=== PATIENT | male | born 1945 | race Caucasian/White ===

== ENCOUNTER 2019-09-29 16:15 | Emergency (ER) | payer MEDICARE, SELFPAY ==
--- NOTE | ~2019-09-29 | XR_ITS ---
EXAMINATION: XR ribs RT 2V DATE: 09/29/2019 17:03 INDICATION: Right rib pain post fall 2010 days prior TECHNIQUE: 3 views of the right ribs were obtained. COMPARISON: Chest radiograph dated 05/31/2019 FINDINGS: Mildly displaced anterior right ninth and 10th rib fractures. Linear discoid atelectasis at the right mid and lower lung zones. No pleural effusion or pneumothorax. Heart size and visualized mediastinal silhouette are normal. Pericardial calcifications. Median sternotomy wires and mediastinal surgical clips are seen, likely from prior coronary artery bypass grafting. Cholecystectomy clips in the right upper quadrant. Vascular calcification along the bilateral renal arteries. IMPRESSION: 1. Mildly displaced anterior right ninth and 10th rib fractures. 2. Discoid atelectasis in the right mid to lower lung zone likely related to splinting. No pneumothor ax or other acute cardiopulmonary disease. Reviewed, dictated and finalized at location A. [facility] [employer] [facility] IMPRESSION: 1. Mildly displaced anterior right ninth and 10th rib fractures. 2. Discoid atelectasis in the right mid to lower lung zone likely related to sp linting. No pneumothorax or other acute cardiopulmonary disease.
[2019-09-29 16:32] VITALS: BP 152/61; PULSE 61; RESP 20; TEMP 36.3; O2SAT 100
--- NOTE | 2019-09-29 16:38 | ED.FALL ---
HPI - Fall General Stated Complaint: right side injury Time Seen by Provider: 09/29/19 16:38 Source: patient and RN notes reviewed History of Present Illness HPI Narrative: Patient is a 74-year-old male who presents the urgent care with his spouse with complaints of right-sided rib pain. Patient states that approximately 10 days ago he fell over the side of a trash can. Patient states that he is unable to get comfortable at night and is having increased pain while sleeping. Patient states he is had to sleep in a recliner. Patient denies any shortness of breath but states it is slightly painful to deep breathe. No other acute complaints. No acute distress noted. Patient had a plan of care. Related Data Home Medications Medication Instructions Recorded Confirmed albuterol sulfate 90 mcg/actuation 1 inhalation INHALATION Q4H 07/25/19 07/26/19 aerosol inhaler aspirin 81 mg tablet,delayed 81 mg PO DAILY 07/25/19 07/26/19 release fluticasone fur. 100 mcg-umeclid 1 inhalation INHALATION DAILY 07/25/19 07/26/19 62.5 mcg-vilant 25 mcg inhalat.powder metoprolol succinate 50 mg 50 mg PO DAILY 07/25/19 07/26/19 tablet,extended release 24 hr temazepam 30 mg capsule 30 mg PO ONCE 07/25/19 07/26/19 amlodipine 10 mg tablet 10 mg PO DAILY 07/26/19 07/26/19 furosemide 40 mg tablet 40 mg PO QAM 07/26/19 07/26/19 olmesartan 20 mg tablet 40 mg PO DAILY tablet 07/26/19 07/26/19 Allergies Allergy/AdvReac Type Severity Reaction Status Date / Time levofloxacin Allergy Unknown unknown Verified 08/13/19 13:23 Review of Systems Review of Systems: Narrative: CONSTITUTIONAL: Denies fever, chills, or sweats. EYES: Denies visual changes, redness, or discharge. ENT: Denies rhinorrhea, congestion, sore throat, or otalgia. CARDIOVASCULAR: Denies chest pain, palpitations, or edema. RESPIRATORY: Denies cough or dyspnea. GASTROINTESTINAL: Denies abdominal pain, nausea, vomiting, or diarrhea. GENITOURINARY: Denies dysuria or hematuria. SKIN: Denies rash or itching. MUSCULOSKELETAL: Reports of right side/rib pain. Denies back pain, joint pain, or myalgia. NEUROLOGIC: Denies headache, numbness, or weakness. All other systems reviewed are negative, except as documented in HPI. [facility] Past Medical History Medical History (Updated 09/29/19 @ 17:17 by JHON Stevenson) Abnormal lung sounds Chronic cough COPD exacerbation History of ESBL Klebsiella pneumoniae infection Hx of myocardial infarction Surgical History Surgical History (Updated 07/25/19 @ 10:41 by Jinny Reynolds [facility]) Hx of CABG Family History Family History (Updated 07/24/18 @ 15:03 by DOCTOR UNKNOWN) Mother Cerebrovascular accident, Onset Age: 88 Family history of heart disease in male family member before age 55 Family history of cardiovascular disease, Onset Age: 88 Family history of arthritis, Onset Age: 88 Patient's mother is in good health, Onset Age: 87 Father Family history of heart disease in male family member before age 55 Acute myocardial infarction Patient's father is in good health, Onset Age: 73 Other Family history of allergic disorder Hypertension Social History Social History Smoking status: Current every day smoker Second hand tobacco smoke exposure: No Smoking end date: 08/22/00 Alcohol intake: current Comments At the time of my signature, I reviewed and agree with the nursing past medical, surgical, social, and family history. There is no relevant family history pertinent to the patient complaint. Exam Narrative: Exam Narrative: GENERAL: This is a well-nourished, well-developed patient, in no apparent distress. HEAD: normocephalic, atraumatic. EYES: PERRL. Sclera clear/white. Vision is grossly intact. EARS: External ears normal NOSE: External nose normal with no obvious nasal discharge THROAT: Mucous membranes moist NECK: Neck supple, non-ten
== END 2019-09-29 17:44 | disposition home or self-care (01) ==
PROVIDERS: Emergency Provider Nurse Practitioner Family; PCP Internal Medicine
DX: S22.31XA Fracture of one rib, right side, initial encounter for closed fracture (principal); W18.09XA Striking against other object with subsequent fall, initial encounter; J44.9 Chronic obstructive pulmonary disease, unspecified; I25.2 Old myocardial infarction
CPT/HCPCS: 71100; 99213; G0463

== ENCOUNTER 2019-10-22 16:54 | Outpatient (CLI) | payer MEDICARE, SELFPAY ==
[2019-10-22 17:43] LABS: Hematocrit 41.6 % (42.0-52.0); Hemoglobin 13.7 g/dL (14.0-18.0); Mean Corpuscular HGB Conc 32.9 g/dl (32-36); Mean Corpuscular Hemoglobin 31.2 pg (26-34); Mean Corpuscular Volume 94.8 fl (80-100); Mean Platelet Volume 13.1 fl (7.4-10.4); Platelet Count Result 104 k/mm3 (150-375); Red Blood Count 4.39 M/mm3 (4.6-6.20); Red Cell Distribution Width 13.7 % (11.5-14.5); White Blood Count 7.3 K/mm3 (4.5-10.0)
[2019-10-22 17:55] LABS: Blood Urea Nitrogen 23 mg/dL (9-20); Calcium 9.1 mg/dL (8.4-10.2); Carbon Dioxide 25 mmol/L (22-30); Chloride 108 mmol/L (98-107); Estimated Glomerular Filt Rate > 60; Glucose 99 mg/dL (75-110); Potassium 4.6 mmol/L (3.4-5.0); Sodium 145 mmol/L (137-145)
[2019-10-22 18:03] LABS: NT Pro B Type Natriuretic Pept 521 PG/ML (5-100)
== END 2019-10-22 16:55 | disposition home or self-care (01) ==
LOC: ANHLAB 17:03
PROVIDERS: PCP Internal Medicine
DX: I50.42 Chronic combined systolic (congestive) and diastolic (congestive) heart failure (principal)
CPT/HCPCS: 36415; 80048; 83880; 85027

== ENCOUNTER 2020-01-12 11:03 | Emergency (ER) | payer MEDICARE, SELFPAY ==
[2020-01-12 11:03] VITALS: BP 133/64; PULSE 119; RESP 20; TEMP 37.4; O2SAT 99
--- NOTE | 2020-01-12 11:42 | ED.UPPEXIN ---
HPI - Extremity Injury (Upper) General Chief Complaint: Extremity Injury, Upper Stated Complaint: bump on left elbow Time Seen by Provider: 01/12/20 11:42 Source: patient and RN notes reviewed Mode of arrival: ambulatory Limitations: no limitations History of Present Illness HPI narrative: This is a 74 years old male presented office for evaluation of left elbow swelling with drainage. Stated he has this elbow bump/knot for past 2weeks however it just started to open up about a week ago. It usually drain in the morning with yellowish to clear fluid. He has been putting Band-Aid on his wound for the last week and Neosporin antibiotic ointment at night. He called his orthopedic today who advised him to come to urgent care for further evaluation. Denies history of gout or bursitis. Denies trauma/injury. Related Data Home Medications Medication Instructions Recorded Confirmed albuterol sulfate 90 mcg/actuation 1 inhalation INHALATION Q4H 07/25/19 01/12/20 aerosol inhaler aspirin 81 mg tablet,delayed 81 mg PO DAILY 07/25/19 01/12/20 release fluticasone fur. 100 mcg-umeclid 1 inhalation INHALATION DAILY 07/25/19 01/12/20 62.5 mcg-vilant 25 mcg inhalat.powder metoprolol succinate 50 mg 50 mg PO DAILY 07/25/19 07/26/19 tablet,extended release 24 hr temazepam 30 mg capsule 30 mg PO ONCE 07/25/19 07/26/19 amlodipine 10 mg tablet 10 mg PO DAILY 07/26/19 01/12/20 furosemide 40 mg tablet 40 mg PO QAM 07/26/19 01/12/20 Plavix 09/29/19 Allergies Allergy/AdvReac Type Severity Reaction Status Date / Time levofloxacin Allergy Unknown unknown Verified 01/12/20 11:13 Review of Systems Review of Systems: Narrative: CONSTITUTIONAL: Denies fever or feeling ill CARDIOVASCULAR: Denies chest pain RESPIRATORY: Denies dyspnea GASTROINTESTINAL: Denies nausea, vomiting SKIN: Reports knot/bump on his left elbow with drainage MUSCULOSKELETAL: Reports left elbow swelling without pain/stiffness NEUROLOGIC: Denies lightheaded PMFSH Past Medical History Medical History (Updated 01/12/20 @ 12:58 by JHON Pizarro) Abnormal lung sounds Chronic cough Chronic obstructive pulmonary disease COPD exacerbation Disturbance in sleep behavior Essential hypertension History of ESBL Klebsiella pneumoniae infection Hx of myocardial infarction KAYLIN (obstructive sleep apnea) Primary insomnia Rhinitis Seasonal allergies Tobacco abuse Surgical History Surgical History Hx of CABG Family History Family History Mother Cerebrovascular accident, Onset Age: 88 Family history of heart disease in male family member before age 55 Family history of cardiovascular disease, Onset Age: 88 Family history of arthritis, Onset Age: 88 Patient's mother is in good health, Onset Age: 87 Father Family history of heart disease in male family member before age 55 Acute myocardial infarction Patient's father is in good health, Onset Age: 73 Other Family history of allergic disorder Hypertension Social History Social History Smoking status: Current every day smoker Second hand tobacco smoke exposure: No Smoking end date: 08/22/00 Alcohol intake: current Gender identity (if verbalized by the patient): Male Comments At time of signature, I agree with nursing past medical, surgical, social and family history. There is no relevant family history pertinent to the presenting complaint. Exam Narrative: Exam Narrative: GENERAL: This is a well-nourished, well-developed patient, in no apparent distress. CARDIOVASCULAR: Regular rate and rhythm without murmurs, gallops, or rubs. RESPIRATORY: Clear to auscultation. Breath sounds equal bilaterally. No wheezes, rales, or rhonchi. NEURO: awake, alert, and oriented to person, place and time. There were no obvious f
== END 2020-01-12 11:59 | disposition home or self-care (01) ==
PROVIDERS: Emergency Provider Nurse Practitioner; PCP Internal Medicine
DX: M66.0 Rupture of popliteal cyst (principal); Z79.82 Long term (current) use of aspirin; Z79.02 Long term (current) use of antithrombotics/antiplatelets; J44.9 Chronic obstructive pulmonary disease, unspecified; I10 Essential (primary) hypertension; I25.2 Old myocardial infarction; G47.33 Obstructive sleep apnea (adult) (pediatric); Z95.1 Presence of aortocoronary bypass graft; F17.200 Nicotine dependence, unspecified, uncomplicated
CPT/HCPCS: 99213; G0463

== ENCOUNTER 2020-03-04 13:45 | Emergency (ER) | payer MEDICARE, SELFPAY ==
--- NOTE | ~2020-03-04 | XR_ITS ---
XR lumbar spine 2-3V 03/04/2020 14:55 Indication: Low back pain Procedure: 7 views lumbar spine Comparison: 11/10/2016 Findings: There is chronic loss of vertebral body height at L4 and L5. There is mild loss of vertebra l body heights. Endplate at L3, likely chronic as well, although new since previous lumbar spine seri es. There is grade 1 spondylolisthesis at L5-S1 which is unchanged. There is multilevel facet hypertr ophy of the mid and lower lumbar spine. No acute fracture or traumatic malalignment. Pedicles intact. Sacral foramen are symmetric. There is extensive renal arterial calcification. There is atherosclero tic change of the aorta. Impression: 1: No acute abnormality of the lumbar spine. Reviewed, dictated and finalized at location B. Impression: 1: No acute abnormality of the lumbar spine.
[2020-03-04 14:20] VITALS: BP 100/60; PULSE 88; RESP 20; TEMP 36.6; O2SAT 100
--- NOTE | 2020-03-04 14:22 | ED.BACK ---
HPI - Back Pain/Injury General Chief Complaint: Back Pain/Injury Stated Complaint: Back pain Time Seen by Provider: 03/04/20 14:22 Source: patient and RN notes reviewed History of Present Illness HPI Narrative: Patient is a 74-year-old female who presents the urgent care with complaints of low back pain, mainly just to the right side. Patient states that he fell down a few wooden carpeted stairs approximately 3 days ago. Patient states that he fell forward giving himself a left black eye and then backwards. Patient states that he has been sleeping in recliner without much improvement. Patient states it is nearly impossible to sleep in his bed because he is unable to get up in the morning. Patient states that sitting still and walking is not terrible but getting out of a sitting or laying position is excruciating pain. Patient states that his orthopedics suggested he have x-rays and he will refer him to a back doctor . Patient denies of any loss of consciousness, blurry vision or headache since the fall. Patient has been using a heating pad to the right lower back. No other acute complaints. No acute distress noted. Patient read the plan of care. Related Data Home Medications Medication Instructions Recorded Confirmed albuterol sulfate 90 mcg/actuation 1 inhalation INHALATION Q4H 07/25/19 03/04/20 aerosol inhaler aspirin 81 mg tablet,delayed 81 mg PO DAILY 07/25/19 03/04/20 release fluticasone fur. 100 mcg-umeclid 1 inhalation INHALATION DAILY 07/25/19 03/04/20 62.5 mcg-vilant 25 mcg inhalat.powder metoprolol succinate 50 mg 50 mg PO DAILY 07/25/19 03/04/20 tablet,extended release 24 hr temazepam 30 mg capsule 30 mg PO ONCE 07/25/19 03/04/20 furosemide 40 mg tablet 40 mg PO QAM 07/26/19 03/04/20 clopidogrel 75 mg PO DAILY 03/04/20 03/04/20 Allergies Allergy/AdvReac Type Severity Reaction Status Date / Time levofloxacin Allergy Unknown unknown Verified 01/12/20 11:13 Review of Systems Review of Systems: Narrative: CONSTITUTIONAL: Denies fever, chills, or sweats. EYES: Denies visual changes, redness, or discharge. ENT: Denies rhinorrhea, congestion, sore throat, or otalgia. CARDIOVASCULAR: Denies chest pain, palpitations, or edema. RESPIRATORY: Denies cough or dyspnea. GASTROINTESTINAL: Denies abdominal pain, nausea, vomiting, or diarrhea. GENITOURINARY: Denies dysuria or hematuria. SKIN: Denies rash or itching. MUSCULOSKELETAL: Reports of low back pain, mainly to the right side NEUROLOGIC: Denies headache, numbness, or weakness. All other systems reviewed are negative, except as documented in HPI. [facility] Past Medical History Medical History (Updated 03/04/20 @ 15:18 by JHON Stevenson) Abnormal lung sounds Chronic cough Chronic obstructive pulmonary disease COPD exacerbation Disturbance in sleep behavior Essential hypertension History of ESBL Klebsiella pneumoniae infection Hx of myocardial infarction KAYLIN (obstructive sleep apnea) Primary insomnia Rhinitis Seasonal allergies Tobacco abuse Surgical History Surgical History Hx of CABG Social History Social History Smoking status: Current every day smoker Second hand tobacco smoke exposure: No Smoking end date: 08/22/00 Alcohol intake: current Gender identity (if verbalized by the patient): Male Comments At the time of my signature, I reviewed and agree with the nursing past medical, surgical, social, and family history. There is no relevant family history pertinent to the patient complaint. Exam Narrative: Exam Narrative: GENERAL: This is a well-nourished, well-developed patient, in no apparent distress. HEAD: normocephalic, atraumatic. EYES: PERRL. Sclera clear/white. Vision is grossly intact. Mild to moderate ecchymosis surrounding the left EARS: External ears normal NOSE: External nose normal with no obvious
== END 2020-03-04 15:21 | disposition home or self-care (01) ==
PROVIDERS: Emergency Provider Nurse Practitioner Family; PCP Internal Medicine
DX: S39.012A Strain of muscle, fascia and tendon of lower back, initial encounter (principal); W10.9XXA Fall (on) (from) unspecified stairs and steps, initial encounter; F17.200 Nicotine dependence, unspecified, uncomplicated; J44.9 Chronic obstructive pulmonary disease, unspecified; I10 Essential (primary) hypertension; I25.2 Old myocardial infarction; G47.33 Obstructive sleep apnea (adult) (pediatric)
CPT/HCPCS: 72100; 99213; G0463

== ENCOUNTER 2020-03-15 11:19 | Outpatient (CLI) | payer MEDICARE, SELFPAY ==
[2020-03-15 11:55] LABS: Alanine Aminotransferase 44 U/L (4-50); Albumin Level 4.7 g/dL (3.5-5.1); Alkaline Phosphatase 225 U/L (38-126); Anion Gap 21.9 mmol/L (7-16); Aspartate Amino Transferase 43 U/L (17-59); Bilirubin,Total 0.3 mg/dL (0.2-1.3); Blood Urea Nitrogen 104 mg/dL (9-20); Calcium 9.9 mg/dL (8.4-10.2); Carbon Dioxide 17 mmol/L (22-30); Chloride 110 mmol/L (98-107); Estimated Glomerular Filt Rate 11; Glucose 100 mg/dL (75-110); Potassium 5.9 mmol/L (3.4-5.0); Sodium 143 mmol/L (137-145)
== END 2020-03-15 11:20 | disposition home or self-care (01) ==
PROVIDERS: PCP Internal Medicine; Visit Provider Orthopaedic Surgery
DX: Z79.899 Other long term (current) drug therapy (principal); M70.22 Olecranon bursitis, left elbow
CPT/HCPCS: 36415; 80053

== ENCOUNTER 2020-03-19 10:12 | Inpatient (IN) | payer MEDICARE, SELFPAY ==
[2020-03-19] VITALS (36 sets, daily range): BP systolic 92–135; BP diastolic 42–89; PULSE 53–77; RESP 12–26; TEMP 36.1–36.5; O2SAT 95–100; BMI 22.3
--- NOTE | ~2020-03-19 | MR_ITS ---
EXAMINATION: MR lumbar spine wo con DATE: 03/20/2020 11:40 INDICATION: Intractable low back pain. TECHNIQUE: Magnetic resonance imaging (MRI) of the lumbar spine was performed without intravenous con trast. Sequences included sagittal T2-weighted FSE, sagittal T2-weighted FS FSE, sagittal T1-weighted FSE, and axial T2-weighted FSE. COMPARISON: Lumbar spine MRI 11/25/2016, lumbar spine radiograph 03/04/2020, CT abdomen and pelvis 2019 FINDINGS: There are chronic bilateral L5 pars defects. There is 3 mm retrolisthesis of L4 on L5 and 5 mm anterolisthesis of L5 on S1. There is a burst fracture of L1 with 2/5 loss of height, low signal fracture lines, and bone marrow edema without retropulsion of bone into central spinal canal. There i s moderately decreased disc height at L1-L2, mildly decreased disc height at L4-L5, and severely decr eased disc height at L5-S1. The distal spinal cord signal intensity is normal. The conus medullaris i s at L1. The following disc levels are specifically discussed: L1-L2: The disc is bulging. There is mild bilateral facet joint osteoarthritis. There is mild bilater al neural foraminal stenosis. There is mild central canal stenosis. L2-L3: The disc is bulging. There is mild bilateral facet joint osteoarthritis. There is mild bilater al neural foraminal stenosis. There is no central canal stenosis. L3-L4: The disc is bulging. There is mild bilateral facet joint osteoarthritis. There is moderate rig ht and mild left neural foraminal stenosis. There is mild central canal stenosis. L4-L5: The disc is bulging. There is moderate bilateral facet joint osteoarthritis. There is moderate bilateral neural foraminal stenosis. There is mild central canal stenosis. L5-S1: The disc does not extend beyond the endplate margin. There is severe bilateral facet joint ost eoarthritis. There is mild bilateral neural foraminal stenosis. There is no central canal stenosis. IMPRESSION: 1. Acute/subacute L1 burst fracture. 2. 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 3. Severe lumbar spondylosis. Reviewed, dictated and finalized at location A.
--- NOTE | ~2020-03-19 | CT_ITS ---
EXAMINATION: CT abd pelvis lumbar wo con DATE: 03/19/2020 11:57 INDICATION: Back pain, abnormal labs, history of kidney stones TECHNIQUE: Computed tomography (CT) of the abdomen, pelvis, and lumbar spine was performed without in travenous contrast. The dose-length product (DLP) was 482.64 mGy-cm. Automated exposure control and i terative reconstruction technique were employed. COMPARISON: 02/06/2018 FINDINGS: Abdomen/pelvis: A stable 4 mm nodule of the left lower lobe is consistent with old granulomatous dise ase. The heart size is normal. There is calcification of the pericardium. The gallbladder is surgical ly absent. The liver, spleen, pancreas, and left adrenal gland are normal. There is a stable 2.5 cm r ight adrenal mass, consistent with an adenoma. Punctate stones of the kidneys measure up to 2 mm. The re are no stones in the ureters or bladder. There is no hydronephrosis or hydroureter. The bladder is decompressed by White catheter. There is significant calcified atherosclerosis of the aorta and many of the other arteries. No pathologically enlarged abdominal or pelvic lymph nodes are identified. Th ere is no free intraperitoneal gas or evidence of bowel obstruction. Colonic diverticulosis is presen t without evidence of diverticulitis. Healing right-sided rib fractures are noted. Lumbar spine: There are bilateral L5 pars defects with chronic grade 1 anterolisthesis of L5 on S1 an d severe loss of L5-S1 intervertebral disc space height. There is a compression fracture of L1 with 3 0% loss of anterior vertebral body height which is new since the prior examination. Schmorl node is a gain noted in the L2 vertebral body. There is mild loss of intervertebral disc space height at L1-2. Mild lower lumbar facet osteoarthritis is noted. IMPRESSION: 1. Age-indeterminate L1 compression fracture, new since the comparison examination, otherwise unchang ed severe lumbar spondylosis at L5-S1. 2. No acute findings of the abdomen or pelvis. 3. Bilateral nephrolithiasis. Reviewed, dictated and finalized at location B. IMPRESSION: 1. Age-indeterminate L1 compression fracture, new since the comparison examinat ion, otherwise unchanged severe lumbar spondylosis at L5-S1. 2. No acute findings of the abdomen or pelvis. 3. Bilateral nephrolithiasis.
--- NOTE | ~2020-03-19 | US_ITS ---
EXAMINATION: US renal BI EXAM DATE: 03/20/2020 12:04 INDICATION: Acute kidney injury. TECHNIQUE: Multiple grayscale and Doppler images of the kidneys were obtained (by a technologist who performed the scan) and subsequently reviewed. There is no prior study for comparison. FINDINGS: Right kidney: There is normal contour and echogenicity. It measures 9.1 x 5.0 x 5.4 centimeters. Th ere are no focal renal lesions identified. There is no hydronephrosis. Left kidney: There is normal contour and echogenicity. It measures 10.3 x 5.9 x 5.0 centimeters. Th ere are no focal renal lesions identified. There is no hydronephrosis. White catheter within collapsed bladder. IMPRESSION: 1. Sonographically unremarkable kidneys. Reviewed, dictated and finalized at location A.
--- NOTE | 2020-03-19 10:26 | ECG_ITS ---
Measurements Intervals [place] Rate: 55 P: VA: 0 QRS: -16 QRSD: 92 T: 28 QT: 413 QTc: 398 Interpretive Statements SINUS OR ECTOPIC ATRIAL BRADYCARDIA WITH SINUS ARRHYTHMIA BORDERLINE ST ABNORMALITY- DIFFUSE LEADS BORDERLINE ECG Electronically Signed On 03-19-2020 10:29:12 CDT by Yuval Mcbride D.O.
[2020-03-19 10:46] LABS: Basophils Absolute Auto 0.1 K/mm3 (0.0-0.1); Basophils Percent Auto 0.6 % (0.2-1.2); Eosinophils Absolute Auto 0.3 K/mm3 (0-0.3); Eosinophils Percent Auto 2.8 % (0-4.4); Hematocrit 39.1 % (42.0-52.0); Immature Granulocyte Absolute 0.03 K/mm3 (0.00-0.031); Immature Granulocyte Percent A 0.3 % (0-0.5); Lymphocytes Absolute Auto 1.65 K/mm3 (0.9-3.2); Lymphocytes Percent Auto 18.3 % (18.3-44.2); Mean Corpuscular HGB Conc 33.2 g/dl (32-36); Mean Corpuscular Hemoglobin 31.6 pg (26-34); Mean Corpuscular Volume 95.1 fl (80-100); Monocytes Absolute Auto 0.7 K/mm3 (0.1-0.6); Monocytes Percent Auto 8.2 % (2.6-8.5); Neutrophils Absolute Auto 6.3 K/mm3 (1.3-6.7); Neutrophils Percent Auto 69.8 % (45.5-73.1); Platelet Count Result 160 k/mm3 (150-375); Red Blood Count 4.11 M/mm3 (4.6-6.20); Red Cell Distribution Width 12.5 % (11.5-14.5)
[2020-03-19] MEDS: SODIUM CHLORIDE 0.9% IV 1,000 ML 999 ML IV CONT (10:59)
[2020-03-19 11:03] LABS: Anion Gap 17.4 mmol/L (7-16); Blood Urea Nitrogen 110 mg/dL (9-20); Calcium 9.9 mg/dL (8.4-10.2); Carbon Dioxide 17 mmol/L (22-30); Chloride 111 mmol/L (98-107); Estimated CRCL calculation 10 ml/min; Estimated Glomerular Filt Rate 10; Glucose 103 mg/dL (75-110); Potassium 6.4 mmol/L (3.4-5.0); Sodium 139 mmol/L (137-145)
[2020-03-19 11:40] LABS: Add Urine Microscopic? NO; Appearance Urine Clear (Clear); Bilirubin Urine Negative (Negative); Blood Urine Negative (Negative); Color Urine Yellow (Yellow); Glucose Urine UA Negative (Negative); Ketones Urine Negative (Negative); Leukocyte Esterase Ur Negative LEU/UL (Negative); Nitrate Urine Negative (Negative); Protein Urine Negative (Negative); Specific Grav Ur 1.019 (1.001-1.035); Urobilinogen Urine Negative mg/dL (<2.0)
[2020-03-19] MEDS: INSULIN HUMAN REGULAR (*BKC) 100 UNITS/ML 10 UNITS IV PUSH ×2 (11:40→21:22)
[2020-03-19] MEDS: DEXTROSE 50% 25 GM/50 ML SYRINGE IV PUSH ×2 (11:40→21:24)
[2020-03-19] MEDS: CALCIUM GLUCONATE 1,000 MG/10 ML VIAL 1000 MG IV PUSH (11:41)
[2020-03-19] MEDS: SODIUM POLYSTYRENE SULFONONATE 15 GM/60 ML BTL 30 GM PO (11:41)
--- NOTE | 2020-03-19 12:13 | ED.RECABL ---
HPI - Recheck/Abnormal Lab/Rx General Chief Complaint: Recheck/Abnormal Lab/Rx <Mendy Garcia PA-C - Last Filed: 03/19/20 13:56> Stated Complaint: abd lab work <Mendy Garcia PA-C - Last Filed: 03/19/20 13:56> Time Seen by Provider: 03/19/20 10:40 <Mendy Garcia PA-C - Last Filed: 03/19/20 13:56> Source: patient <Mendy Garcia PA-C - Last Filed: 03/19/20 13:56> Mode of arrival: ambulatory <CASS Talamantes Last Filed: 03/19/20 13:56> Limitations: no limitations <Mendy Garcia PA-C - Last Filed: 03/19/20 13:56> History of Present Illness HPI narrative: This is a 75 year old male that presents to the ER for abnormal labs. Reports he had labs done by his orthopedic doctor. Reports he was told he should come to the ER because his kidney numbers were not good. Patient reports some nausea. Also reports low back pain. Reports he had a fall a month ago and since he has been having low back pain. Does report history of kidney stones. Denies fever, abdominal pain, vomiting, dysuria, hematuria. <Mendy Garcia PA-C - Last Filed: 03/19/20 13:56> Related Data Home Medications: Home Medications Medication Instructions Recorded Confirmed albuterol sulfate 90 mcg/actuation 1 inhalation INHALATION Q4H 07/25/19 03/04/20 aerosol inhaler aspirin 81 mg tablet,delayed 81 mg PO DAILY 07/25/19 03/04/20 release fluticasone fur. 100 mcg-umeclid 1 inhalation INHALATION DAILY 07/25/19 03/04/20 62.5 mcg-vilant 25 mcg inhalat.powder metoprolol succinate 50 mg 50 mg PO DAILY 07/25/19 03/04/20 tablet,extended release 24 hr temazepam 30 mg capsule 30 mg PO ONCE 07/25/19 03/04/20 clopidogrel 75 mg PO DAILY 03/04/20 03/04/20 <CASS Talamantes Last Filed: 03/19/20 13:56> Allergies/Adverse Reactions: Allergies Allergy/AdvReac Type Severity Reaction Status Date / Time levofloxacin Allergy Unknown unknown Verified 01/12/20 11:13 <Mendy Garcia PA-C - Last Filed: 03/19/20 13:56> Review of Systems Review of Systems: Narrative: CONSTITUTIONAL: Denies fever GASTROINTESTINAL: Reports nausea. Denies abdominal pain, vomiting GENITOURINARY: Denies dysuria or hematuria. MUSCULOSKELETAL: Reports back pain, joint pain, and myalgia. NEUROLOGIC: Denies numbness <CASS Talamantes Last Filed: 03/19/20 13:56> All systems reviewed & are unremarkable except as noted in HPI and below <Mendy Garcia PA-C - Last Filed: 03/19/20 13:56> [facility] Past Medical History Medical History: Medical History (Updated 03/19/20 @ 12:53 by Francesca Huertas MD) Abnormal lung sounds Chronic cough Chronic obstructive pulmonary disease COPD exacerbation Disturbance in sleep behavior Essential hypertension History of ESBL Klebsiella pneumoniae infection Hx of myocardial infarction KAYLIN (obstructive sleep apnea) Primary insomnia Rhinitis Seasonal allergies Tobacco abuse <CASS Talamantes Last Filed: 03/19/20 13:56> Surgical History Surgical History: Surgical History Hx of CABG <Mendy Garcia PA-C - Last Filed: 03/19/20 13:56> Social History Social History: Social History Smoking status: Current every day smoker Second hand tobacco smoke exposure: No Smoking end date: 08/22/00 Alcohol intake: current Gender identity (if verbalized by the patient): Male <CASS Talamantes Last Filed: 03/19/20 13:56> Exam Narrative: Exam Narrative: GENERAL: Elderly, well-nourished, and in no acute distress. HEAD: Normocephalic, atraumatic. EYES: EOMI. CHEST: Clear to auscultation. No respiratory distress. No wheezes rales or rhonchi HEART: Regular rate and rhythm. No murmur heard. Normal peripheral pulses. ABDOMEN: Soft, nontender, nondistended, normal active bowel sounds. EXTREMITIES: Normal range of motion. No edema. Stre
--- NOTE | 2020-03-19 15:07 | ADMGEN ---
This patient, Atul Fernando, was admitted to IMU Room 205-01 at 1424 on 03/19/2020. Patient/family oriented to hospital policies and general routines including ID bracelet, bed and alarms, visiting hours, pain management, procedures, bathroom and other care routines, personal items, smoking policy, room service/diet, and visiting hours. Valuables list has been completed. Information on how to activate the Rapid Response Team has been discussed. Patient/Family are encouraged to report perceived risks to care and to ask questions if they do not understand what they are told or what they should do.
--- NOTE | 2020-03-19 16:20 | PM.CNOR ---
Assessment and Plan Additional Plan Patient is a 75-year-old male well known to me. We saw him in the office today in follow-up of his left olecranon bursal sinus. We had seen him the week before and placed him on Bactrim DS 1 p.o. b.i.d.. He advised me that he had not had lab work for very long time and I recommended obtaining a CMP make sure he did not have significant renal insufficiency or hepatic insufficiency. He did not have the test drawn until Tuesday and he called the office yesterday and we selected results up and at that time his creatinine was 5.0 and potassium was 5.9 his BUN I believe was 110. I spoke with Dr. mena call a his primary care physician to advise me that the last time he had a creatinine it was 1. So patient has acute renal failure of uncertain etiology. He had been on Bactrim for 3 days when he had the CMP test done. I sent him to the emergency room for urgent evaluation expecting that is potassium might be dangerously elevated by now. It was found to be markedly elevated at 6.4 and his creatinine was further elevated at 5.9. He is admitted for observation on the intermediate care unit and was given Kayexalate to lower his potassium. His left olecranon bursa looks quite benign now except he does have a 3 mm sinus through the skin. There is no drainage no erythema. We are hoping that this will heal on its own by secondary intention if he is able to stop bleeding on his elbow and he forgets frequently when he is rolling in bed and does lean on a period His chief complaint today when he saw me was intractable lower back pain. He saw Dr. evans Steele in the central communications specialist a week ago was complaining of low back pain that radiated to the right flank. Now his pain is mostly central. It started approximately 4 weeks ago when he fell on his back. His a long history of chronic lower back pain but it has been much worse since his fall. He had x-rays [address] solis which showed degenerative changes and no evidence of fracture. He had x-rays today the in the emergency room which showed no definite acute abnormality and a CT scan was ordered which showed significant central right endplate compression of L1 with some signs of sclerosis and it is unclear whether this is acute or chronic. It is new compared with last imaging study in 2018 though. 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 When he saw Dr. evans Steele and Dr. solis recommended obtaining an MRI scan of his lumbar spine which has been scheduled for Tuesday here at the hospital. I will see if we can get this sooner. Patient complains to me today that he has had bowel incontinence for the last few years which is getting worse. When he eats something he has uncontrollable bowel movements. The etiology of this is unclear but chronic cauda equina syndrome should be considered. Patient has significant comorbidities. He has a 50 pack-year smoking history continues to smoke has had heart attack has severe COPD. We will obtain MRI scan of his lumbar spine and make recommendations accordingly. His acute renal failure is being managed by Dr. Katz and hospitalist. I will order SCDs while he is here hospitalized. History of Present Illness HPI Consult date: 03/19/20 Chief complaint: Acute kidney failure/[id number] fx/hyperkalemia PMFSH Past Medical History Medical History (Updated 03/19/20 @ 12:53 by Francesca Huertas MD) Abnormal lung sounds Chronic cough Chronic obstructive pulmonary disease COPD exacerbation Disturbance in sleep behavior Essential hypertension History of ESBL Klebsiella pneumoniae infection Hx of myocardial infarction KAYLIN (obstructive sleep apnea) Primary insomnia Rhinitis Seasonal allergies Tobacco abuse Surgical History Surgical History (Reviewed
[2020-03-19 17:39] LABS: Alanine Aminotransferase 37 U/L (4-50); Albumin Level 4.9 g/dL (3.5-5.1); Alkaline Phosphatase 175 U/L (38-126); Anion Gap 20.9 mmol/L (7-16); Aspartate Amino Transferase 43 U/L (17-59); Bilirubin,Total 0.3 mg/dL (0.2-1.3); Blood Urea Nitrogen 104 mg/dL (9-20); Calcium 10.4 mg/dL (8.4-10.2); Carbon Dioxide 14 mmol/L (22-30); Chloride 113 mmol/L (98-107); Estimated CRCL calculation 10 ml/min; Estimated Glomerular Filt Rate 10; Glucose 115 mg/dL (75-110); Magnesium 2.2 mg/dL (1.6-2.3); Phosphorus 7.7 mg/dL (2.5-4.5); Potassium 5.9 mmol/L (3.4-5.0); Sodium 142 mmol/L (137-145)
[2020-03-19 17:42] LABS: Creatine Kinase 36 U/L (55-170)
[2020-03-19 17:53] LABS: Complement C3 113 mg/dL (88-165)
--- NOTE | 2020-03-19 18:00 | PM.IMHP ---
H&P: HPI History of Present Illness Chief complaint: Abnormal labs. Narrative: Atul Fernando is a very pleasant 75-year-old male with history of coronary artery disease status post CABG, hypertension, dyslipidemia, iron deficiency anemia, COPD, and peripheral arterial disease who presented to the emergency department earlier today for evaluation of abnormal labs. Several weeks ago he was seen at urgent care for evaluation of low back pain after he fell down a couple of steps several days prior. He had been using a heating pad without a whole lot of benefit, and was prescribed hydrocodone which helped somewhat. A lumbar x-ray done at that time showed no acute abnormalities. Since that time, he has not been doing much, as any movement causes a big spasm in the mid lumbar region and he has been progressively more weak since that time. More recently, he was seen by Dr. Akhil Webber for follow-up of left olecranon bursitis and he was started on Bactrim DS b.i.d due to reports of purulent drainage at one point. Dr. Webber also ordered a CMP as the patient had not had lab work done in some time, and he had that lab drawn this past Tuesday, about 3 days after he started taking the Bactrim. Unfortunately, he has continued to become more weak, lightheaded, and dizzy and he has noticed that his blood pressures have been running around 100/60, when they typically run 130/70. In fact, he spoke with his signal system testing maintainer yesterday regarding the low blood pressures and feelings of weakness, and he was instructed to hold his diuretic and antihypertensives. Today was told to come to the emergency department as his lab work done on Tuesday showed acute kidney failure with a creatinine of 5.0. On arrival to the emergency department his creatinine was 5.9 and potassium was 6.40 for which he was given the appropriate cocktail for hyperkalemia, including Kayexalate. Unfortunately, he has had many loose stools since taking the Kayexalate and he goes on to say that he has had chronic diarrhea for many years couple of weeks and the Kayexalate made that much worse. Since receiving IV fluids he reports feeling much better but goes on to say he typically has no back pain if he is just lying flat. He denies radiation of the back pain and gives no history to suggest sciatica. He denies paresthesias, focal weakness, and saddle anesthesia. He has chronic loose stools, as mentioned above, and is at times incontinent of those stools but that is not a new finding, however he reports having a bowel movement within 15 to 30 minutes of eating or drinking almost anything. He has had nausea and his appetite has not been good for. He has never been diagnosed with BPH but he reports nocturia, getting up at least 3 times a night to go to the bathroom, as well as hesitancy and decreased stream. These are not new symptoms either. At the time my evaluation he does not have any significant complaints. He denies fever, chills, and sweats. No recent cold or flu symptoms. He denies chest pain, shortness of breath, vomiting, dysuria, and any significant change in urine output. He also denies NSAID use and the addition of any other medications to his regimen except for the Bactrim. Review of Systems Review of Systems: Narrative: 12 systems were reviewed with pertinent positives and negatives as per HPI. No fever, chills, or sweats. He denies recent travel and sick contacts. No change in mild, chronic cough. or shortness of breath. He has pretty terrible claudication in the right leg when walking, but apparently is not a surgical candidate or he does not want to have vascular intervention. he has not noticed confusion but has had slow thought processes. Except as documented, all other systems were reviewed and are negative. [facility] Past Medical History Medical History (Updated 03/20/20 @ 00:44 by Helen Reagan PA-C) Anemia Benign colon polyp Chronic obstructive pulmonary disease Coronary artery di
[2020-03-19] MEDS: SODIUM CHLORIDE 0.9% IV 1,000 ML 100 ML IV CONT (18:33)
[2020-03-19 20:48] LABS: Creatinine Urine 115.6 mg/dL
[2020-03-19 20:49] LABS: Sodium Urine Random 57 meq/L
--- NOTE | 2020-03-19 21:00 | PCRCNOTE ---
20:45 WENT AND SEEN PT HE STATED HE DOESN'T WEAR A CPAP MACHINE AT HOME. ONLY WHEN HE HAS COME TO THE HOSPITAL AT TIMES.
[2020-03-19 21:06] LABS: Glucose Point of Care 101 (65-105)
[2020-03-19] MEDS: SODIUM BICARBONATE 8.4% 100 MEQ in WATER, STERILE FOR INJECTION 1,000 ML IV CONT (21:21)
[2020-03-19] MEDS: CALCIUM GLUC 1,000 MG/NS 50 ML 1,000 MG/50 ML BAG 100 MG IVPB (21:22)
[2020-03-19 22:51] LABS: Glucose Point of Care 222 (65-105)
[2020-03-20] VITALS (12 sets, daily range): BP systolic 91–121; BP diastolic 49–68; PULSE 67–99; RESP 16–20; TEMP 36.1–37.5; O2SAT 97–99; BMI 22.4
[2020-03-20 00:06] LABS: Glucose Point of Care 82 (65-105)
[2020-03-20 00:12] LABS: Anion Gap 16.4 mmol/L (7-16); Blood Urea Nitrogen 99 mg/dL (9-20); Calcium 9.7 mg/dL (8.4-10.2); Carbon Dioxide 15 mmol/L (22-30); Chloride 115 mmol/L (98-107); Estimated CRCL calculation 13 ml/min; Estimated Glomerular Filt Rate 13; Glucose 72 mg/dL (75-110); Potassium 5.4 mmol/L (3.4-5.0); Sodium 141 mmol/L (137-145)
[2020-03-20 00:36] LABS: Glucose Point of Care 91 (65-105)
[2020-03-20 01:32] LABS: Glucose Point of Care 79 (65-105)
[2020-03-20 01:50] LABS: Glucose Point of Care 105 (65-105)
[2020-03-20] MEDS: TEMAZEPAM 15 MG CAPSULE 30 MG PO ×2 (01:51→22:49)
[2020-03-20] MEDS: ALBUTEROL SULFATE (*SP) AEROSOL 1 PUFF INHALATION ×4 (03:27→16:03)
[2020-03-20 03:49] LABS: Glucose Point of Care 138 (65-105)
[2020-03-20 04:59] LABS: Hematocrit 33.5 % (42.0-52.0); Hemoglobin 11.1 g/dL (14.0-18.0); Mean Corpuscular HGB Conc 33.1 g/dl (32-36); Mean Corpuscular Volume 93.6 fl (80-100); Mean Platelet Volume 12.6 fl (7.4-10.4); Platelet Count Result 126 k/mm3 (150-375); Red Blood Count 3.58 M/mm3 (4.6-6.20); Red Cell Distribution Width 12.1 % (11.5-14.5); White Blood Count 7.8 K/mm3 (4.5-10.0)
[2020-03-20 07:35] LABS: Anion Gap 17.2 mmol/L (7-16); Blood Urea Nitrogen 88 mg/dL (9-20); Calcium 9.8 mg/dL (8.4-10.2); Carbon Dioxide 16 mmol/L (22-30); Chloride 112 mmol/L (98-107); Estimated CRCL calculation 16 ml/min; Estimated Glomerular Filt Rate 16; Glucose 91 mg/dL (75-110); Magnesium 1.9 mg/dL (1.6-2.3); Potassium 5.2 mmol/L (3.4-5.0); Sodium 140 mmol/L (137-145)
--- NOTE | 2020-03-20 07:43 | PM.PNORT ---
Progress Note: A&P Additional Plan Pt is scheduled to get MRI of L-spine, Cr-3.8 this am, pt having no new symptoms- still having back pain, NVI to both LE, elbow still looks benign, will reveiw MRI when done Subjective Subjective Date/Time Seen: 03/20/20 07:43 Objective Data Vital Signs Vital Signs: Vital Signs - 24 hr 03/19/20 10:27 03/19/20 10:48 03/19/20 10:49 Temperature 36.5 C Pulse Rate 64 61 Respiratory Rate 12 12 Blood Pressure 135/75 94/65 L Pulse Oximetry 100 99 99 03/19/20 10:53 03/19/20 11:05 03/19/20 11:15 Temperature Pulse Rate 53 L 59 L 59 L Respiratory Rate 16 19 13 Blood Pressure Pulse Oximetry 99 100 03/19/20 11:16 03/19/20 11:30 03/19/20 11:32 Temperature Pulse Rate 54 L 54 L 56 L Respiratory Rate 16 18 20 Blood Pressure 98/78 L Pulse Oximetry 100 97 100 03/19/20 11:45 03/19/20 11:46 03/19/20 12:02 Temperature Pulse Rate 55 L 57 L 69 Respiratory Rate 17 16 16 Blood Pressure Pulse Oximetry 100 100 100 03/19/20 12:15 03/19/20 12:47 03/19/20 12:48 Temperature Pulse Rate 66 55 L 55 L Respiratory Rate 15 15 14 Blood Pressure 106/61 Pulse Oximetry 99 98 98 03/19/20 13:00 03/19/20 13:01 03/19/20 13:15 Temperature Pulse Rate 59 L 60 67 Respiratory Rate 16 19 18 Blood Pressure 114/89 Pulse Oximetry 100 99 97 03/19/20 13:16 03/19/20 13:30 03/19/20 13:31 Temperature Pulse Rate 66 69 71 Respiratory Rate 18 16 17 Blood Pressure 95/42 L Pulse Oximetry 96 95 96 03/19/20 13:45 03/19/20 13:46 03/19/20 14:00 Temperature Pulse Rate 66 67 61 Respiratory Rate 16 16 16 Blood Pressure 93/53 L Pulse Oximetry 97 99 03/19/20 14:01 03/19/20 14:15 03/19/20 14:16 Temperature Pulse Rate 61 59 L 73 Respiratory Rate 15 12 20 Blood Pressure 92/50 L 96/51 L Pulse Oximetry 03/19/20 14:17 03/19/20 14:30 03/19/20 14:31 Temperature Pulse Rate 69 63 70 Respiratory Rate 26 H 16 16 Blood Pressure 114/68 Pulse Oximetry 03/19/20 16:00 03/19/20 18:00 03/19/20 18:45 Temperature 36.2 C L 36.2 C L Pulse Rate 70 61 58 L Respiratory Rate 24 H 22 H Blood Pressure 110/63 100/52 L Pulse Oximetry 100 99 03/19/20 20:00 03/19/20 21:54 03/19/20 23:43 Temperature 36.1 C L Pulse Rate 62 71 64 Respiratory Rate 20 Blood Pressure 107/48 L Pulse Oximetry 97 03/20/20 01:56 03/20/20 03:28 03/20/20 04:00 Temperature 36.1 C L Pulse Rate 85 71 73 Respiratory Rate 18 20 Blood Pressure 103/59 L Pulse Oximetry 97 03/20/20 06:00 Temperature Pulse Rate 67 Respiratory Rate Blood Pressure Pulse Oximetry Intake/Output Intake/Output: Intake & Output 03/17/20 03/18/20 03/19/20 03/20/20 23:59 23:59 23:59 23:59 Intake Total 1290 900 Output Total 325 700 Balance 965 200 Meds/Results Medications: Active Medications Generic Name Dose Route Start Last Admin Trade Name Freq PRN Reason Stop Dose Admin Acetaminophen 650 mg 03/20/20 00:49 Tylenol Tablet PO Q6H PRN Mild Pain (1-3) or Fever Hydrocodone Bitart/Acetaminophen 1 tab 03/19/20 13:29 03/20/20 02:14 Vernon 5-325 Mg PO 1 tab Q4H PRN Administration Pain Rated 4-6 Hydrocodone Bitart/Acetaminophen 1 tab 03/20/20 00:49 [place] 5-325 Mg PO Q6H PRN Pain Rated 4-6 Albuterol 1 puff 03/20/20 04:00 03/20/20 03:27 Proventil Hfa INHALATION 1 puff Q4HRT RADHA Administration Aspirin 81 mg 03/20/20 09:00 Aspirin Ec PO DAILY RADHA Atorvastatin Calcium 80 mg 03/20/20 09:00 Lipitor PO DAILY [facility] Dextrose 12.5 gm 03/19/20 20:40 Dextrose 50% Syringe IV PUSH PRN PRN Hypoglycemia Protocol Ferrous Sulfate 324 mg 03/20/20 09:00 Ferrous Sulfate PO DAILY RADHA Glucagon 1 mg 03/19/20 20:40 Glucagon For Inj IM PRN PRN Hypoglycemia Protocol Glucose 15 gm 03/19/20 20:40 Glutose 15 PO PRN PRN Hypo
[2020-03-20 08:09] LABS: Glucose Point of Care 108 (65-105)
[2020-03-20] MEDS: SODIUM BICARBONATE 8.4% 100 MEQ in WATER, STERILE FOR INJECTION 1,000 ML IV CONT ×2 (08:25→22:40)
[2020-03-20] MEDS: SERTRALINE HCL 50 MG TABLET 100 MG PO (08:29)
[2020-03-20] MEDS: ATORVASTATIN 40 MG TABLET 80 MG PO (08:29)
[2020-03-20] MEDS: ASPIRIN 81 MG ENTERIC TABLET PO (08:30)
[2020-03-20] MEDS: FERROUS SULFATE 324 MG TABLET PO (08:30)
--- NOTE | 2020-03-20 12:44 | PM.CNNEP ---
Assessment and Plan Assessment and plan (1) Acute kidney injury: Code(s): N17.9 - Acute kidney failure, unspecified Status: Acute Assessment and Plan: The patient has acute kidney injury. His baseline creatinine is normal at 1.0. The acute kidney injury could be from several issues. Dehydration is certainly playing a role. He has had the diarrhea and poor appetite for the last few weeks. In addition is blood pressure was low suggestive of dehydration as well. The patient was on Bactrim for 3 weeks. Bactrim can exaggerated the rise in the creatinine and also can cause his potassium to be high. all this should improve off the medication in with fluids. In addition, Bactrim can cause interstitial nephritis. So we can check some urine eosinophils. However he does not have a rash or peripheral eosinophilia. He has an infection is elbow but he does not look toxic so I do not think this is contributing to his kidney issues. He has had a history of kidney stones so we should get an ultrasound to be sure he is okay. (2) Hyperkalemia: Code(s): E87.5 - Hyperkalemia Status: Acute Assessment and Plan: The potassium is high due to his dehydration. Bactrim may have contributed a little bit. (3) Metabolic acidosis: Code(s): E87.2 - Acidosis Status: Acute Assessment and Plan: The patient has a normal anion gap metabolic acidosis. This is likely related to his diarrhea and to the renal failure with decreased ammonia production. Hyperkalemia also reduces ammonia production. (4) Essential hypertension: Code(s): I10 - Essential (primary) hypertension Status: Acute Assessment and Plan: His blood Pressure is well controlled. (5) Anemia: Code(s): D64.9 - Anemia, unspecified Status: Acute Assessment and Plan: The patient's hemoglobin is mildly low. This may be due to infection or could be other issues. His renal failure certainly is contributory currently but should be contributory to his former history of more mild anemia. (6) Tobacco abuse: Code(s): Z72.0 - Tobacco use Status: Acute Assessment and Plan: He is encouraged to stop smoking. (7) Kidney stones: Code(s): N20.0 - Calculus of kidney Status: Acute Assessment and Plan: No history for couple of years. History of Present Illness Reason for Consult Consult date: 03/20/20 Chief Complaint Chief complaint: Abnormal labs. History of Present Illness Narrative: Atul is a very pleasant 75-year-old gentleman who has multiple medical problems including kidney stones, sleep apnea, lower extremity peripheral artery disease, he still smokes, hyperlipidemia, hypertension, irritable bowel syndrome, pulmonary nodules, diverticulosis, coronary artery disease, COPD. The patient has chronic diarrhea. This is been going on for at least a year or 2. He has seen Dr. lerner about this and was diagnosed with irritable bowel syndrome apparently. He says that he frequently has diarrhea and sometimes it is urgent. He says that about 6 months ago got a little bit worse. In the last few weeks he has lost his appetite is not been eating very well but continued to have the diarrhea. In the meantime, 4 months ago he fell and bumped his left elbow. He developed an olecranon bursa swelling. A few weeks ago this started using. Three weeks ago he started antibiotics for this which has not really helped the oozing. He received 3 rounds of Bactrim a week at a time. On Tuesday the patient went to see his hangersmith who noted low blood pressure so his antihypertensives were held. he also he saw Dr. Webber who wendy some blood work which showed a high creatinine. He called Dr. Bartholomew who asked the patient to go to the hospital. In the ER he was found to have a high potassium and high creatinine. His blood pressure was a little bit low.
[2020-03-20 13:05] LABS: Glucose Point of Care 115 (65-105)
[2020-03-20 13:31] LABS: Creatine Kinase 32 U/L (55-170)
[2020-03-20] MEDS: METOPROLOL SUCCINATE EXT REL 50 MG TABCR PO (15:24)
--- NOTE | 2020-03-20 17:13 | PC.NURSE ---
This patient, Atul Fernando, was transferred to [[id number] ] on 03/20/20 at 1654. Personal belongings sent with patient. Belongings list checked and signed with receiving [ ]. Report given to [Pat ]. Appropriate documentation sent with patient.
--- NOTE | 2020-03-20 17:52 | P.PNIM_ITS ---
Progress Note: A&P Assessment and Plan (1) Acute kidney injury: Code(s): N17.9 - Acute kidney failure, unspecified Status: Acute Assessment and Plan: Likely multifactorial in etiology and due to hypoperfusion from relative hypotension for several weeks and profound dehydration from poor oral intake and ongoing diarrhea in the setting of ARB use. He has peripheral vascular disease thus stenosis is a consideration. He has only had 150 cubic centimeters of urine out since White catheter was placed in the emergency department, making post renal etiology unlikely. Intrinsic renal disease, including acute interstitial nephritis from Bactrim, is also a consideration versus other. * Normal saline was given in the ED but changing to bicarb drip given acidosis. * Monitor strict I/O and avoid nephrotoxic agents. * Renal ultrasound no obstruction and eosinophils negative. * Nephrology following * (2) Hyperkalemia: Code(s): E87.5 - Hyperkalemia Status: Acute Assessment and Plan: * Secondary to acute kidney injury and metabolic acidosis in the setting of ARB use. * He has received appropriate treatment for such, with continued improvement in his potassium levels 5.2 today (3) Metabolic acidosis: Code(s): E87.2 - Acidosis Status: Acute Assessment and Plan: * Secondary to renal failure. * bicarbonate drip. (4) Closed compression fracture of L1 vertebra: Qualifiers: Encounter type: initial encounter Qualified Code(s): S32.010A - Wedge compression fracture of first lumbar vertebra, initial encounter for closed fracture Code(s): S32.010A - Wedge compression fracture of first lumbar vertebra, initial encounter for closed fracture Status: Acute Assessment and Plan: * Likely the cause of his significant back pain after fall several weeks ago as per HPI. * MR 40% collapse of L1 with acute fracture * PT/OT consulted as he needs to get up and moving. * Analgesics available as needed; no NSAIDs! (5) Anemia: Code(s): D64.9 - Anemia, unspecified Status: Acute Assessment and Plan: * Hemoglobin and hematocrit are stable on review of previous labs. (6) Essential hypertension: Code(s): I10 - Essential (primary) hypertension Status: Acute Assessment and Plan: * Blood pressures have been soft and thus antihypertensives were held but with his history of coronary artery disease will restart beta-sandy and continue to hold ARB (7) Peripheral arterial disease: Code(s): I73.9 - Peripheral vascular disease, unspecified Status: Acute Assessment and Plan: * Continue aspirin but hold clopidogrel, which may be resumed when uremia improves. (8) Tobacco abuse: Code(s): Z72.0 - Tobacco use Status: Acute Assessment and Plan: * Smoking cessation is imperative although I am not certain he is motivated. * He declines the need for nicotine patch. (9) Coronary artery disease: Code(s): I25.10 - Atherosclerotic heart di
--- NOTE | 2020-03-20 17:52 | PM.IMPN ---
Progress Note: A&P Assessment and Plan (1) Acute kidney injury: Code(s): N17.9 - Acute kidney failure, unspecified Status: Acute Assessment and Plan: Likely multifactorial in etiology and due to hypoperfusion from relative hypotension for several weeks and profound dehydration from poor oral intake and ongoing diarrhea in the setting of ARB use. He has peripheral vascular disease thus stenosis is a consideration. He has only had 150 cubic centimeters of urine out since White catheter was placed in the emergency department, making post renal etiology unlikely. Intrinsic renal disease, including acute interstitial nephritis from Bactrim, is also a consideration versus other. Normal saline was given in the ED but changing to bicarb drip given acidosis. Monitor strict I/O and avoid nephrotoxic agents. Renal ultrasound no obstruction and eosinophils negative. Nephrology following (2) Hyperkalemia: Code(s): E87.5 - Hyperkalemia Status: Acute Assessment and Plan: Secondary to acute kidney injury and metabolic acidosis in the setting of ARB use. He has received appropriate treatment for such, with continued improvement in his potassium levels 5.2 today (3) Metabolic acidosis: Code(s): E87.2 - Acidosis Status: Acute Assessment and Plan: Secondary to renal failure. bicarbonate drip. (4) Closed compression fracture of L1 vertebra: Qualifiers: Encounter type: initial encounter Qualified Code(s): S32.010A - Wedge compression fracture of first lumbar vertebra, initial encounter for closed fracture Code(s): S32.010A - Wedge compression fracture of first lumbar vertebra, initial encounter for closed fracture Status: Acute Assessment and Plan: Likely the cause of his significant back pain after fall several weeks ago as per HPI. MR 40% collapse of L1 with acute fracture PT/OT consulted as he needs to get up and moving. Analgesics available as needed; no NSAIDs! (5) Anemia: Code(s): D64.9 - Anemia, unspecified Status: Acute Assessment and Plan: Hemoglobin and hematocrit are stable on review of previous labs. (6) Essential hypertension: Code(s): I10 - Essential (primary) hypertension Status: Acute Assessment and Plan: Blood pressures have been soft and thus antihypertensives were held but with his history of coronary artery disease will restart beta-sandy and continue to hold ARB (7) Peripheral arterial disease: Code(s): I73.9 - Peripheral vascular disease, unspecified Status: Acute Assessment and Plan: Continue aspirin but hold clopidogrel, which may be resumed when uremia improves. (8) Tobacco abuse: Code(s): Z72.0 - Tobacco use Status: Acute Assessment and Plan: Smoking cessation is imperative although I am not certain he is motivated. He declines the need for nicotine patch. (9) Coronary artery disease: Code(s): I25.10 - Atherosclerotic heart disease of [place] coronary artery without angina pectoris Status: Acute Assessment and Plan: stable continue aspirin, statin, and resume low-dose beta-sandy Subjective Date/time seen: 03/20/20 17:52 Interval history: 75-year-old hypertensive white male with known coronary disease fell approximately 3-4 weeks ago and has not be eating well or taking in fluids well. Pressure has been running low and was taking Bactrim fo
[2020-03-21 00:11] LABS: Glucose Point of Care 112 (65-105)
[2020-03-21 02:50] VITALS: BP 128/55; PULSE 79; RESP 18; TEMP 36.4; O2SAT 97
[2020-03-21] MEDS: ALBUTEROL SULFATE (*SP) AEROSOL 1 PUFF INHALATION ×6 (04:00→20:33)
[2020-03-21 05:34] LABS: Creatinine Urine 82.1 mg/dL; Total Protein Urine Random 19 mg/dL
[2020-03-21 05:36] LABS: Sodium Urine Random 49 meq/L
[2020-03-21 05:58] LABS: Albumin Level 3.7 g/dL (3.5-5.1); Anion Gap 11.8 mmol/L (7-16); Blood Urea Nitrogen 65 mg/dL (9-20); Carbon Dioxide 23 mmol/L (22-30); Chloride 108 mmol/L (98-107); Estimated CRCL calculation 23 ml/min; Estimated Glomerular Filt Rate 25; Glucose 96 mg/dL (75-110); Potassium 4.8 mmol/L (3.4-5.0); Sodium 138 mmol/L (137-145)
[2020-03-21 06:12] VITALS: BP 126/58; PULSE 82; RESP 16; TEMP 36.4; O2SAT 98
[2020-03-21] MEDS: ASPIRIN 81 MG ENTERIC TABLET PO (08:12)
[2020-03-21] MEDS: SERTRALINE HCL 50 MG TABLET 100 MG PO (08:12)
[2020-03-21] MEDS: ATORVASTATIN 40 MG TABLET 80 MG PO (08:13)
[2020-03-21] MEDS: METOPROLOL SUCCINATE EXT REL 50 MG TABCR PO (08:13)
[2020-03-21] MEDS: FERROUS SULFATE 324 MG TABLET PO (08:13)
[2020-03-21 10:00] VITALS: BP 99/55; PULSE 71; RESP 16; TEMP 36.5; O2SAT 97
--- NOTE | 2020-03-21 10:55 | PCOTNOTE ---
Attempted to see patient this am, however patient declined. Pt stated, I told her (visitor) that I would eat lunch and get up to wash up later.
[2020-03-21] MEDS: SODIUM BICARBONATE 8.4% 100 MEQ in WATER, STERILE FOR INJECTION 1,000 ML IV CONT ×2 (11:23→20:19)
--- NOTE | 2020-03-21 11:40 | PM.PNNEP ---
Progress Note: A&P Assessment and Plan (1) Acute kidney injury: Code(s): N17.9 - Acute kidney failure, unspecified Status: Acute Assessment and Plan: The patient has acute kidney injury. His baseline creatinine is normal at 1.0. The acute kidney injury could be from several issues. Renal ultrasound was okay. Urine electrolytes were mildly pre renal. Urine eosinophils are negative. Most likely he has acute kidney injury from dehydration. Bactrim may have played a role in how high the creatinine kita due to inhibition of tubular secretion but probably not a direct effect on kidney function. He is off the Bactrim and getting fluids and he is doing better. (2) Hyperkalemia: Code(s): E87.5 - Hyperkalemia Status: Acute Assessment and Plan: The potassium is high due to his dehydration. Bactrim may have contributed a little bit. (3) Metabolic acidosis: Code(s): E87.2 - Acidosis Status: Acute Assessment and Plan: This is resolved. (4) Essential hypertension: Code(s): I10 - Essential (primary) hypertension Status: Acute Assessment and Plan: His blood Pressure is well controlled. (5) Anemia: Code(s): D64.9 - Anemia, unspecified Status: Acute Assessment and Plan: The patient's hemoglobin is mildly low. This may be due to infection or could be other issues. His renal failure certainly is contributory currently but should be contributory to his former history of more mild anemia. (6) Tobacco abuse: Code(s): Z72.0 - Tobacco use Status: Acute Assessment and Plan: He is encouraged to stop smoking. (7) Kidney stones: Code(s): N20.0 - Calculus of kidney Status: Acute Assessment and Plan: No history for couple of years. Subjective Date/time seen: 03/21/20 11:40 Interval history: Atul is feeling better today. is in the room. We discussed the case. The patient is making urine. No bloody or foamy urine. No shortness of breath chest pain or swelling. Review of Systems Cardiovascular: Cardiovascular: Reports no additional cardiovascular complaints Respiratory: Respiratory: Reports no additional respiratory complaints Gastrointestinal: Gastrointestinal: Reports no additional gastrointestinal complaints Genitourinary: Genitourinary: Reports no additional male genitourinary complaints Exam Narrative: Exam Narrative: WDWN in NAD skin no rash head ncat lungs clear cor reg no rub abd BS+ nontender and soft ext no edema. Objective Data Vital Signs Vital Signs: Vital Signs - 24 hr 03/20/20 12:00 03/20/20 14:00 03/20/20 15:24 Temperature 36.9 C Pulse Rate 99 86 91 Respiratory Rate 16 Blood Pressure 115/66 Pulse Oximetry 99 03/20/20 16:00 03/20/20 18:00 03/20/20 21:49 Temperature 37.5 C 37.0 C 36.2 C L Pulse Rate 89 91 71 Respiratory Rate 18 16 16 Blood Pressure 91/49 L 121/68 109/60 Pulse Oximetry 98 99 98 03/21/20 02:50 03/21/20 06:12 03/21/20 10:00 Temperature 36.4 C L 36.4 C 36.5 C Pulse Rate 79 82 71 Respiratory Rate 18 16 16 Blood Pressure 128/55 L 126/58 L 99/55 L Pulse Oximetry 97 98 97 Intake/Output Intake/Output: Intake & Output 03/18/20 03/19/20 03/20/20 03/21/20 23:59 23:59 23:59 23:59 Intake Total 1290 3215 1300 Output Total 325 1550 950 Balance 965 1665 350 Meds/Results Medications: Active Medications Generic Name Dose Route Start Last Admin Trade Name Freq PRN Reason Stop Dose Admin Acetaminophen 650 mg 03/20/20 00:49 Tylenol Tablet PO Q6H PRN Mild Pain (1-3) or Fever Hydrocodone Bitart/Acetaminophen 1 tab 03/19/20 13:29 03/20/20 02:14 [place] 5-325 Mg PO 1 tab Q4H PRN Administration Pain Rated 4-6 Hydrocodone Bitart/Acetaminophen 1 tab 03/20/20 00:49 [place] 5-325 Mg PO Q6H PRN Pain Rated 4-6 Albuterol 1 puff 03/20
--- NOTE | 2020-03-21 13:13 | PM.PNORT ---
Progress Note: A&P Additional Plan MRI shows l1 compression fx, TLSO brace is ordered, pt having much less pain overall, is feeling much better overall, once brace is here pt can get up for ambulation, will need brace for 4-6 weeks, pt is still concerned about penitentiary diarrhea issue, will consult GI for opinion Subjective Subjective Date/Time Seen: 03/21/20 13:13 Objective Data Vital Signs Vital Signs: Vital Signs - 24 hr 03/20/20 14:00 03/20/20 15:24 03/20/20 16:00 Temperature 37.5 C Pulse Rate 86 91 89 Respiratory Rate 18 Blood Pressure 91/49 L Pulse Oximetry 98 03/20/20 18:00 03/20/20 21:49 03/21/20 02:50 Temperature 37.0 C 36.2 C L 36.4 C L Pulse Rate 91 71 79 Respiratory Rate 16 16 18 Blood Pressure 121/68 109/60 128/55 L Pulse Oximetry 99 98 97 03/21/20 06:12 03/21/20 10:00 Temperature 36.4 C 36.5 C Pulse Rate 82 71 Respiratory Rate 16 16 Blood Pressure 126/58 L 99/55 L Pulse Oximetry 98 97 Intake/Output Intake/Output: Intake & Output 03/18/20 03/19/20 03/20/20 03/21/20 23:59 23:59 23:59 23:59 Intake Total 1290 3215 1300 Output Total 325 1550 950 Balance 965 1665 350 Meds/Results Medications: Active Medications Generic Name Dose Route Start Last Admin Trade Name Freq PRN Reason Stop Dose Admin Acetaminophen 650 mg 03/20/20 00:49 Tylenol Tablet PO Q6H PRN Mild Pain (1-3) or Fever Hydrocodone Bitart/Acetaminophen 1 tab 03/19/20 13:29 03/20/20 02:14 [place] 5-325 Mg PO 1 tab Q4H PRN Administration Pain Rated 4-6 Hydrocodone Bitart/Acetaminophen 1 tab 03/20/20 00:49 [place] 5-325 Mg PO Q6H PRN Pain Rated 4-6 Albuterol 1 puff 03/20/20 04:00 03/21/20 12:30 Proventil Hfa INHALATION 1 puff Q4HRT RADHA Administration Aspirin 81 mg 03/20/20 09:00 03/21/20 08:12 Aspirin Ec PO 81 mg DAILY RADHA Administration Atorvastatin Calcium 80 mg 03/20/20 09:00 03/21/20 08:13 Lipitor PO 80 mg DAILY RADHA Administration Dextrose 12.5 gm 03/19/20 20:40 Dextrose 50% Syringe IV PUSH PRN PRN Hypoglycemia Protocol Ferrous Sulfate 324 mg 03/20/20 09:00 03/21/20 08:13 Ferrous Sulfate PO 324 mg DAILY RADHA Administration Glucagon 1 mg 03/19/20 20:40 Glucagon For Inj IM PRN PRN Hypoglycemia Protocol Glucose 15 gm 03/19/20 20:40 Glutose 15 PO PRN PRN Hypoglycemia Protocol Sodium Bicarbonate 100 meq/ 1,100 mls @ 100 mls/hr 03/19/20 20:40 03/21/20 11:23 Sterile Water IV CONT 100 mls/hr .Q11H RADHA Administration Dextrose 1,000 mls @ 100 mls/hr 03/19/20 20:40 Dextrose 5% 1,000 Ml IVPB PRN PRN Hypoglycemia Protocol Metoprolol Succinate 50 mg 03/20/20 13:30 03/21/20 08:13 Toprol Xl PO 50 mg QAM RADHA Administration Non-Formulary Medication 1 inhalation 03/20/20 09:00 [id number]-Mcalmenz [Trelegy Ellipta] INHALATION 04/19/20 09:01 DAILY RADHA Sertraline HCl 100 mg 03/20/20 09:00 03/21/20 08:12 Zoloft PO 100 mg DAILY RADHA Administration Temazepam 30 mg 03/20/20 21:00 03/20/20 22:49 Restoril PO 30 mg HS RADHA Administration Radiology Results: ITS Impressions Miscellaneous CT Procedure 03/19/20 12:09 IMPRESSION: 1. Age-indeterminate L1 compression fracture, new since the comparison examination, otherwise unchanged severe lumbar spondylosis at L5-S1. 2. No acute findings of the abdomen or pelvis. 3. Bilateral nephrolithiasis. Lumbar Spine MRI 03/20/20 11:56 IMPRESSION: 1. Acute/subacute L1 burst fracture. 2. 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 3. Severe lumbar spondylosis. Renal Ultrasound 03/20/20 12:07 IMPRESSION: 1. Sonographically unremarkable kidneys. Labs Labs: Laboratory Results - last 24 hr 07/03/20/20 03/20/20 20:17 13:10 22:54 Sodium Potassium Chloride Carbo
[2020-03-21 14:00] VITALS: BP 104/50; PULSE 78; RESP 14; TEMP 36.9; O2SAT 98
--- NOTE | 2020-03-21 14:15 | WPDGICN ---
Assessment and Plan Assessment and plan (1) Chronic diarrhea: Code(s): K52.9 - Noninfective gastroenteritis and colitis, unspecified Status: Acute Assessment and Plan: Etiology of diarrhea is somewhat unclear is been present for quite some time initially felt to be secondary to irritable bowel syndrome. Patient now has recent antibiotic use. He has significant renal insufficiency. May be secondary to dehydration from recent diarrhea. Plan is to check stool cultures including C difficile toxin because of recent antibiotic use. Patient reports no improvement with Imodium. We will add fiber supplements consider Questran and further recommendations pending results of initial investigation. We will follow with you as he is rehydrated. (2) Anemia: Code(s): D64.9 - Anemia, unspecified Status: Acute Assessment and Plan: Anemia likely multifactorial. GI workup 1 year ago revealed angiodysplasias of the small bowel he also had duodenal erosions in colon polyps. Plan is to monitor blood count given his renal insufficiency this may also contribute to current anemia. (3) Acute renal failure: Qualifiers: Acute renal failure type: unspecified Qualified Code(s): N17.9 - Acute kidney failure, unspecified Code(s): N17.9 - Acute kidney failure, unspecified Status: Acute (4) Closed compression fracture of L1 vertebra: Qualifiers: Encounter type: initial encounter Qualified Code(s): S32.010A - Wedge compression fracture of first lumbar vertebra, initial encounter for closed fracture Code(s): S32.010A - Wedge compression fracture of first lumbar vertebra, initial encounter for closed fracture Status: Acute GI Consult Note Consult date/time: 03/21/20 14:15 HPI: Atul Fernando is a 75 year old maleI am asked to see because of chronic diarrhea. Patient is recently been followed by Orthopedic service because of a left olecranon bursitis. He has been on several antibiotics. He also has a recent fall and has back pain secondary to an L1 compression fracture. Patient reports over the last several years he has had chronic diarrhea. This is worsened recently. He notes going perhaps 10 times a day of loose liquid stools. He states that shortly after he eats he will have to run to the bathroom. He denies any blood in his stools although his stools are dark from iron. He never has bowel movements at night. He denies any abdominal cramping. He denies any fever. Patient is known to my service from evaluation 1 year ago with GI blood loss. 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 he had several duodenal erosions by EGD. Patient subsequently has been maintained on iron replacement. At the time of admission patient was noted to have significant azotemia secondary to renal insufficiency. Possibly for some component of dehydration. Review of Systems Review of Systems: All systems reviewed & are unremarkable except as noted in HPI and below PMFSH Past Medical History Medical History Anemia Benign colon polyp Chronic obstructive pulmonary disease Coronary artery disease With history of IN. Status post 4 vessel CABG in 2000 with PELAEZ to LAD, SVG to RCA, radial to OM, and SVG to diagonal. All vessels were patent except for the SVG to diagonal which was occluded and 50% stenosis of the SVG to the RCA on cardiac catheterization done at [facility] in 2016. Diverticulitis (~01/2018) Dyslipidemia Essential hypertension Gastroesophageal reflux disease History of ESBL Klebsiella pneumoniae infection Irritable bowel syndrome with diarrhea Kidney stones Obstructive sleep apnea Peripheral arterial disease With chronic right lower extremity claudication. Arteriogram done over a decade ago showed an occluded right femoral artery which has been treated w
--- NOTE | 2020-03-21 14:40 | P.PNIM_ITS ---
Progress Note: A&P Assessment and Plan (1) Acute kidney injury: Code(s): N17.9 - Acute kidney failure, unspecified Status: Acute Assessment and Plan: Likely multifactorial in etiology and due to hypoperfusion from relative hypotension for several weeks and profound dehydration from poor oral intake and ongoing diarrhea in the setting of ARB use. He has peripheral vascular disease thus stenosis is a consideration. He has only had 150 cubic centimeters of urine out since White catheter was placed in the emergency department, making post renal etiology unlikely. Intrinsic renal disease, including acute interstitial nephritis from Bactrim, is also a consideration versus other. * Normal saline was given in the ED but changed to bicarb drip given acidosis. * Monitor strict I/O and avoiding nephrotoxic agents. * Renal ultrasound no obstruction and eosinophils negative. * Nephrology following * Creatinine down to 2.5 today (2) Hyperkalemia: Code(s): E87.5 - Hyperkalemia Status: Acute Assessment and Plan: * Secondary to acute kidney injury and metabolic acidosis in the setting of ARB use. * He has received appropriate treatment for such, with continued improvement in his potassium level 4.8 today (3) Metabolic acidosis: Code(s): E87.2 - Acidosis Status: Acute Assessment and Plan: * Secondary to renal failure. * bicarbonate drip continued and c02 at 23 today. (4) Closed compression fracture of L1 vertebra: Qualifiers: Encounter type: initial encounter Qualified Code(s): S32.010A - Wedge compression fracture of first lumbar vertebra, initial encounter for closed fracture Code(s): S32.010A - Wedge compression fracture of first lumbar vertebra, initial encounter for closed fracture Status: Acute Assessment and Plan: * Likely the cause of his significant back pain after fall several weeks ago as per HPI. * MR 40% collapse of L1 with acute fracture * PT/OT consulted as he needs to get up and moving. * Analgesics available as needed; * ortho adding brace (5) Anemia: Code(s): D64.9 - Anemia, unspecified Status: Acute Assessment and Plan: * Hemoglobin and hematocrit are stable on review of previous labs. (6) Essential hypertension: Code(s): I10 - Essential (primary) hypertension Status: Acute Assessment and Plan: * Blood pressures have been soft and thus antihypertensives were held but with his history of coronary artery disease and restart beta-sandy at lower dose and continue to hold ARB (7) Peripheral arterial disease: Code(s): I73.9 - Peripheral vascular disease, unspecified Status: Acute Assessment and Plan: * Continue aspirin but hold clopidogrel, which may be resumed when uremia improves. (8) Tobacco abuse: Code(s): Z72.0 - Tobacco use Status: Acute Assessment and Plan: * Smoking cessation is imperative although I am not certain he is motivated. * He declines the need for nicotine patch. (9)
--- NOTE | 2020-03-21 14:40 | PM.IMPN ---
Progress Note: A&P Assessment and Plan (1) Acute kidney injury: Code(s): N17.9 - Acute kidney failure, unspecified Status: Acute Assessment and Plan: Likely multifactorial in etiology and due to hypoperfusion from relative hypotension for several weeks and profound dehydration from poor oral intake and ongoing diarrhea in the setting of ARB use. He has peripheral vascular disease thus stenosis is a consideration. He has only had 150 cubic centimeters of urine out since White catheter was placed in the emergency department, making post renal etiology unlikely. Intrinsic renal disease, including acute interstitial nephritis from Bactrim, is also a consideration versus other. Normal saline was given in the ED but changed to bicarb drip given acidosis. Monitor strict I/O and avoiding nephrotoxic agents. Renal ultrasound no obstruction and eosinophils negative. Nephrology following Creatinine down to 2.5 today (2) Hyperkalemia: Code(s): E87.5 - Hyperkalemia Status: Acute Assessment and Plan: Secondary to acute kidney injury and metabolic acidosis in the setting of ARB use. He has received appropriate treatment for such, with continued improvement in his potassium level 4.8 today (3) Metabolic acidosis: Code(s): E87.2 - Acidosis Status: Acute Assessment and Plan: Secondary to renal failure. bicarbonate drip continued and c02 at 23 today. (4) Closed compression fracture of L1 vertebra: Qualifiers: Encounter type: initial encounter Qualified Code(s): S32.010A - Wedge compression fracture of first lumbar vertebra, initial encounter for closed fracture Code(s): S32.010A - Wedge compression fracture of first lumbar vertebra, initial encounter for closed fracture Status: Acute Assessment and Plan: Likely the cause of his significant back pain after fall several weeks ago as per HPI. MR 40% collapse of L1 with acute fracture PT/OT consulted as he needs to get up and moving. Analgesics available as needed; ortho adding brace (5) Anemia: Code(s): D64.9 - Anemia, unspecified Status: Acute Assessment and Plan: Hemoglobin and hematocrit are stable on review of previous labs. (6) Essential hypertension: Code(s): I10 - Essential (primary) hypertension Status: Acute Assessment and Plan: Blood pressures have been soft and thus antihypertensives were held but with his history of coronary artery disease and restart beta-sandy at lower dose and continue to hold ARB (7) Peripheral arterial disease: Code(s): I73.9 - Peripheral vascular disease, unspecified Status: Acute Assessment and Plan: Continue aspirin but hold clopidogrel, which may be resumed when uremia improves. (8) Tobacco abuse: Code(s): Z72.0 - Tobacco use Status: Acute Assessment and Plan: Smoking cessation is imperative although I am not certain he is motivated. He declines the need for nicotine patch. (9) Coronary artery disease: Code(s): I25.10 - Atherosclerotic heart disease of [place] coronary artery without angina pectoris Status: Acute Assessment and Plan: stable continue aspirin, statin, and resume low-dose beta-sandy (10) Chronic diarrhea: Code(s): K52.9 - Noninfective gastroenteritis and colitis, unspecified Status: Acute Assessment and Plan: diarrhea for several months and pr
[2020-03-21] MEDS: calcium polycarbophiL 625 MG TABLET 1250 MG PO (16:54)
[2020-03-21 18:00] VITALS: BP 130/70; PULSE 66; RESP 16; TEMP 36.3; O2SAT 98
[2020-03-21 20:00] VITALS: BP 127/54; PULSE 69; RESP 16; TEMP 36.9; O2SAT 92
[2020-03-21] MEDS: TEMAZEPAM 15 MG CAPSULE 30 MG PO (20:17)
[2020-03-21 20:23] LABS: IFOB Positive Control Positive; Immunochemical Fecal Occult Bl Positive (N)
[2020-03-21 20:36] LABS: Glucose Point of Care 113 (65-105)
[2020-03-22] VITALS (7 sets, daily range): BP systolic 106–151; BP diastolic 50–66; PULSE 68–78; RESP 16–18; TEMP 36.2–36.4; O2SAT 92–99
[2020-03-22] MEDS: ALBUTEROL SULFATE (*SP) AEROSOL 1 PUFF INHALATION ×5 (00:15→14:36)
[2020-03-22] MEDS: SODIUM BICARBONATE 8.4% 100 MEQ in WATER, STERILE FOR INJECTION 1,000 ML IV CONT ×2 (05:10→15:51)
[2020-03-22 05:51] LABS: Albumin Level 3.6 g/dL (3.5-5.1); Anion Gap 12.1 mmol/L (7-16); Blood Urea Nitrogen 43 mg/dL (9-20); Calcium 8.7 mg/dL (8.4-10.2); Carbon Dioxide 26 mmol/L (22-30); Chloride 104 mmol/L (98-107); Estimated CRCL calculation 34 ml/min; Estimated Glomerular Filt Rate 39; Glucose 100 mg/dL (75-110); Phosphorus 3.7 mg/dL (2.5-4.5); Potassium 4.1 mmol/L (3.4-5.0); Sodium 138 mmol/L (137-145)
[2020-03-22 06:46] LABS: Vitamin D 25 Hydroxy 45.6 ng/mL
[2020-03-22 08:02] LABS: Glucose Point of Care 98 (65-105)
--- NOTE | 2020-03-22 08:44 | PM.PNNEP ---
Progress Note: A&P Assessment and Plan (1) Acute kidney injury: Code(s): N17.9 - Acute kidney failure, unspecified Status: Acute Assessment and Plan: The patient has acute kidney injury. His baseline creatinine is normal at 1.0. Renal ultrasound was okay. Urine electrolytes were mildly pre renal. Urine eosinophils are negative. Most likely he has acute kidney injury from dehydration. Bactrim may have played a role in how high the creatinine kita due to inhibition of tubular secretion but probably not a direct effect on kidney function. His creatinine is coming down. He is eating well. Will continue IV fluids 1 more day. (2) Hyperkalemia: Code(s): E87.5 - Hyperkalemia Status: Acute Assessment and Plan: The potassium was high due to his dehydration. Bactrim may have contributed a little bit. This has resolved (3) Metabolic acidosis: Code(s): E87.2 - Acidosis Status: Acute Assessment and Plan: This is resolved. (4) Essential hypertension: Code(s): I10 - Essential (primary) hypertension Status: Acute Assessment and Plan: His blood Pressure is well controlled. (5) Anemia: Code(s): D64.9 - Anemia, unspecified Status: Acute (6) Tobacco abuse: Code(s): Z72.0 - Tobacco use Status: Acute Assessment and Plan: He is encouraged to stop smoking. (7) Kidney stones: Code(s): N20.0 - Calculus of kidney Status: Acute Assessment and Plan: No history for couple of years. Subjective Date/time seen: 03/22/20 08:44 Interval history: Atul is feeling better The patient is making urine. No bloody or foamy urine. No shortness of breath chest pain or swelling. eating well. Review of Systems Cardiovascular: Cardiovascular: Reports no additional cardiovascular complaints Respiratory: Respiratory: Reports no additional respiratory complaints Gastrointestinal: Gastrointestinal: Reports no additional gastrointestinal complaints Genitourinary: Genitourinary: Reports no additional male genitourinary complaints Exam Narrative: Exam Narrative: WDWN in NAD skin no rash head ncat lungs clear Bilaterally cor reg no rub or gallop abd BS+ nontender and soft ext no edema. Objective Data Vital Signs Vital Signs: Vital Signs - 24 hr 03/21/20 10:00 03/21/20 14:00 07/31/20 18:00 Temperature 36.5 C 36.9 C 36.3 C L Pulse Rate 71 78 66 Respiratory Rate 16 14 16 Blood Pressure 99/55 L 104/50 L 130/70 Pulse Oximetry 97 98 98 03/21/20 20:00 03/22/20 00:00 03/22/20 04:00 Temperature 36.9 C 36.3 C L 36.4 C L Pulse Rate 69 72 72 Respiratory Rate 16 16 16 Blood Pressure 127/54 L 115/50 L 106/66 Pulse Oximetry 92 95 92 Intake/Output Intake/Output: Intake & Output 03/19/20 03/20/20 03/21/20 03/22/20 23:59 23:59 23:59 23:59 Intake Total 1290 3215 3170 1550 Output Total 325 1550 1825 1200 Balance 965 1665 1345 350 Meds/Results Medications: Active Medications Generic Name Dose Route Start Last Admin Trade Name Freq PRN Reason Stop Dose Admin Acetaminophen 650 mg 03/20/20 00:49 Tylenol Tablet PO Q6H PRN Mild Pain (1-3) or Fever Hydrocodone Bitart/Acetaminophen 1 tab 03/19/20 13:29 03/20/20 02:14 [place] 5-325 Mg PO 1 tab Q4H PRN Administration Pain Rated 4-6 Hydrocodone Bitart/Acetaminophen 1 tab 03/20/20 00:49 [place] 5-325 Mg PO Q6H PRN Pain Rated 4-6 Albuterol 1 puff 03/20/20 04:00 03/22/20 07:22 Proventil Hfa INHALATION 1 puff Q4HRT [facility] Administration Aspirin 81 mg 03/20/20 09:00 03/21/20 08:12 Aspirin Ec PO 81 mg DAILY [facility] Administration Atorvastatin Calcium 80 mg 03/20/20 09:00 03/21/20 08:13 Lipitor PO 80 mg DAILY [facility] Administration Calcium Polycarbophil 1,250 mg 03/21/20 17:00 03/21/20 16:54 Fiber Con PO 1,250 mg BIDWM [facility]
[2020-03-22] MEDS: ATORVASTATIN 40 MG TABLET 80 MG PO (09:19)
[2020-03-22] MEDS: SERTRALINE HCL 50 MG TABLET 100 MG PO (09:19)
[2020-03-22] MEDS: ASPIRIN 81 MG ENTERIC TABLET PO (09:19)
[2020-03-22] MEDS: FERROUS SULFATE 324 MG TABLET PO (09:19)
[2020-03-22] MEDS: METOPROLOL SUCCINATE EXT REL 25 MG TABCR PO (09:20)
[2020-03-22] MEDS: calcium polycarbophiL 625 MG TABLET 1250 MG PO ×2 (09:21→17:26)
--- NOTE | 2020-03-22 10:31 | WPDGIPROGNO ---
Progress Note: A&P Additional Plan Patient feels much better this morning after IV rehydration. States he still has urgency for bowel movement after eating. But amount of stools has lessened. Patient denies abdominal pain. Physical exam reveals patient to be alert. He is afebrile. Anicteric. Lungs are clear. Heart without murmur. Abdomen bowel sounds are present soft nontender with no organomegaly. Impression 1. Chronic diarrhea. Stool cultures are pending. Patient recently had antibiotics for infection at his elbow bursa. Plan is to review stool cultures. At the present time he may benefit from Lomotil. Fiber supplements are encourage for long-term suspicion of irritable bowel syndrome. Outpatient follow-up strongly encouraged. It appears as though diarrhea likely contributed to his azotemia and dehydration. 2. Resolved azotemia suggestive of dehydration. Likely secondary to his diarrhea. Outpatient follow-up of diarrhea in my office strongly encouraged Several weeks after discharge. Subjective Date/time seen: 03/22/20 10:31 Objective Data Vital Signs Vital Signs: Vital Signs - 24 hr 03/21/20 14:00 03/21/20 18:00 03/21/20 20:00 Temperature 98.5 F 97.4 F L 98.4 F Pulse Rate 78 66 69 Respiratory Rate 14 16 16 Blood Pressure 104/50 L 130/70 127/54 L Pulse Oximetry 98 98 92 03/22/20 00:00 03/22/20 04:00 03/22/20 09:20 Temperature 97.4 F L 97.5 F L Pulse Rate 72 72 74 Respiratory Rate 16 16 Blood Pressure 115/50 L 106/66 Pulse Oximetry 95 92 Intake/Output Intake/Output: Intake & Output 03/19/20 03/20/20 03/21/20 03/22/20 23:59 23:59 23:59 23:59 Intake Total 1290 3215 3170 1670 Output Total 325 1550 1825 1200 Balance 965 1665 1345 470 Meds/Results Medications: Active Medications Generic Name Dose Route Start Last Admin Trade Name Freq PRN Reason Stop Dose Admin Acetaminophen 650 mg 03/20/20 00:49 Tylenol Tablet PO Q6H PRN Mild Pain (1-3) or Fever Hydrocodone Bitart/Acetaminophen 1 tab 03/19/20 13:29 03/20/20 02:14 [place] 5-325 Mg PO 1 tab Q4H PRN Administration Pain Rated 4-6 Hydrocodone Bitart/Acetaminophen 1 tab 03/20/20 00:49 [place] 5-325 Mg PO Q6H PRN Pain Rated 4-6 Albuterol 1 puff 03/20/20 04:00 03/22/20 07:22 Proventil Hfa INHALATION 1 puff Q4HRT RADHA Administration Aspirin 81 mg 03/20/20 09:00 03/22/20 09:19 Aspirin Ec PO 81 mg DAILY RADHA Administration Atorvastatin Calcium 80 mg 03/20/20 09:00 03/22/20 09:19 Lipitor PO 80 mg DAILY RADHA Administration Calcium Polycarbophil 1,250 mg 03/21/20 17:00 03/22/20 09:21 Fiber Con PO 1,250 mg BIDWM RADHA Administration Dextrose 12.5 gm 03/19/20 20:40 Dextrose 50% Syringe IV PUSH PRN PRN Hypoglycemia Protocol Ferrous Sulfate 324 mg 03/20/20 09:00 03/22/20 09:19 Ferrous Sulfate PO 324 mg DAILY RADHA Administration Glucagon 1 mg 03/19/20 20:40 Glucagon For Inj IM PRN PRN Hypoglycemia Protocol Glucose 15 gm 03/19/20 20:40 Glutose 15 PO PRN PRN Hypoglycemia Protocol Sodium Bicarbonate 100 meq/ 1,100 mls @ 100 mls/hr 03/19/20 20:40 03/22/20 05:10 Sterile Water IV CONT 100 mls/hr .Q11H RADHA Administration Dextrose 1,000 mls @ 100 mls/hr 03/19/20 20:40 Dextrose 5% 1,000 Ml IVPB PRN PRN Hypoglycemia Protocol Metoprolol Succinate 25 mg 03/22/20 09:00 03/22/20 09:20 Toprol Xl PO 25 mg QAM RADHA Administration Non-Formulary Medication 1 inhalation 03/20/20 09:00 [id number] [Trelegy Ellipta] INHALATION 04/19/20 09:01 DAILY RADHA Sertraline HCl 100 mg 03/20/20 09:00 03/22/20 09:19 Zoloft PO 100 mg DAILY RADHA Administration Temazepam 30 mg 03/20/20 21:00 03/21/20 20:17 Restoril PO 30 mg HS RADHA Administration Radiology Results: ITS Impressions Miscellaneous CT Procedure
[2020-03-22 12:07] LABS: Glucose Point of Care 112 (65-105)
--- NOTE | 2020-03-22 13:30 | P.PNIM_ITS ---
Progress Note: A&P Assessment and Plan (1) Acute kidney injury: Code(s): N17.9 - Acute kidney failure, unspecified Status: Acute Assessment and Plan: Likely multifactorial in etiology and due to hypoperfusion from relative hypotension for several weeks and profound dehydration from poor oral intake and ongoing diarrhea in the setting of ARB use. He has peripheral vascular disease thus stenosis is a consideration but rapidly improving with hydration * Normal saline was given in the ED but changed to bicarb drip given acidosis. * Monitor strict I/O and avoiding nephrotoxic agents. * Renal ultrasound no obstruction and eosinophils negative. * Nephrology following * Creatinine down to 1.7 today (2) Hyperkalemia: Code(s): E87.5 - Hyperkalemia Status: Acute Assessment and Plan: * Secondary to acute kidney injury and metabolic acidosis in the setting of ARB use. * He has received appropriate treatment for such, with continued improvement in his potassium level 4.1 today (3) Metabolic acidosis: Code(s): E87.2 - Acidosis Status: Acute Assessment and Plan: * Secondary to renal failure. * bicarbonate drip continued and c02 at 26 today. (4) Closed compression fracture of L1 vertebra: Qualifiers: Encounter type: initial encounter Qualified Code(s): S32.010A - Wedge compression fracture of first lumbar vertebra, initial encounter for closed fracture Code(s): S32.010A - Wedge compression fracture of first lumbar vertebra, initial encounter for closed fracture Status: Acute Assessment and Plan: * Likely the cause of his significant back pain after fall several weeks ago as per HPI. * MR 40% collapse of L1 with acute fracture * PT/OT consulted as he needs to get up and moving. * Analgesics available as needed; * ortho adding brace (5) Anemia: Code(s): D64.9 - Anemia, unspecified Status: Acute Assessment and Plan: * Hemoglobin and hematocrit are stable on review of previous labs. (6) Essential hypertension: Code(s): I10 - Essential (primary) hypertension Status: Acute Assessment and Plan: * Blood pressures have been soft and thus antihypertensives were held but with his history of coronary artery disease and restarted beta-sandy at lower dose and continue to hold ARB (7) Peripheral arterial disease: Code(s): I73.9 - Peripheral vascular disease, unspecified Status: Acute Assessment and Plan: * Continue aspirin and restart plavix /, . (8) Tobacco abuse: Code(s): Z72.0 - Tobacco use Status: Acute Assessment and Plan: * Smoking cessation is imperative although I am not certain he is motivated. * He declines the need for nicotine patch. (9) Coronary artery disease: Code(s): I25.10 - Atherosclerotic heart disease of [place] coronary artery without angina pectoris Status: Acute Assessment and Plan: stable continue aspirin, statin, and resumed low-dose beta-sandy (10)
--- NOTE | 2020-03-22 13:30 | PM.IMPN ---
Progress Note: A&P Assessment and Plan (1) Acute kidney injury: Code(s): N17.9 - Acute kidney failure, unspecified Status: Acute Assessment and Plan: Likely multifactorial in etiology and due to hypoperfusion from relative hypotension for several weeks and profound dehydration from poor oral intake and ongoing diarrhea in the setting of ARB use. He has peripheral vascular disease thus stenosis is a consideration but rapidly improving with hydration Normal saline was given in the ED but changed to bicarb drip given acidosis. Monitor strict I/O and avoiding nephrotoxic agents. Renal ultrasound no obstruction and eosinophils negative. Nephrology following Creatinine down to 1.7 today (2) Hyperkalemia: Code(s): E87.5 - Hyperkalemia Status: Acute Assessment and Plan: Secondary to acute kidney injury and metabolic acidosis in the setting of ARB use. He has received appropriate treatment for such, with continued improvement in his potassium level 4.1 today (3) Metabolic acidosis: Code(s): E87.2 - Acidosis Status: Acute Assessment and Plan: Secondary to renal failure. bicarbonate drip continued and c02 at 26 today. (4) Closed compression fracture of L1 vertebra: Qualifiers: Encounter type: initial encounter Qualified Code(s): S32.010A - Wedge compression fracture of first lumbar vertebra, initial encounter for closed fracture Code(s): S32.010A - Wedge compression fracture of first lumbar vertebra, initial encounter for closed fracture Status: Acute Assessment and Plan: Likely the cause of his significant back pain after fall several weeks ago as per HPI. MR 40% collapse of L1 with acute fracture PT/OT consulted as he needs to get up and moving. Analgesics available as needed; ortho adding brace (5) Anemia: Code(s): D64.9 - Anemia, unspecified Status: Acute Assessment and Plan: Hemoglobin and hematocrit are stable on review of previous labs. (6) Essential hypertension: Code(s): I10 - Essential (primary) hypertension Status: Acute Assessment and Plan: Blood pressures have been soft and thus antihypertensives were held but with his history of coronary artery disease and restarted beta-sandy at lower dose and continue to hold ARB (7) Peripheral arterial disease: Code(s): I73.9 - Peripheral vascular disease, unspecified Status: Acute Assessment and Plan: Continue aspirin and restart plavix 8/, . (8) Tobacco abuse: Code(s): Z72.0 - Tobacco use Status: Acute Assessment and Plan: Smoking cessation is imperative although I am not certain he is motivated. He declines the need for nicotine patch. (9) Coronary artery disease: Code(s): I25.10 - Atherosclerotic heart disease of [place] coronary artery without angina pectoris Status: Acute Assessment and Plan: stable continue aspirin, statin, and resumed low-dose beta-sandy (10) Chronic diarrhea: Code(s): K52.9 - Noninfective gastroenteritis and colitis, unspecified Status: Acute Assessment and Plan: diarrhea for several months and preceeded antibiotics for bursitis . GI seeing and repeat cultures ordered Subjective Date/time seen: 03/22/20 13:30 Interval history: Date of visit 03/22 75-year-old hypertensive white male with known coronary disease fell approximately 3-4 weeks ago and has not
--- NOTE | 2020-03-22 16:24 | PHAR ---
HOME MED VERIFIED TRELEGY ELLIPTA 1 INHALATION ONCE DAILY
[2020-03-22] MEDS: TEMAZEPAM 15 MG CAPSULE 30 MG PO (20:19)
[2020-03-23] VITALS: BP 142/66; PULSE 97; RESP 16; TEMP 37.1; O2SAT 100
[2020-03-23] MEDS: SODIUM BICARBONATE 8.4% 100 MEQ in WATER, STERILE FOR INJECTION 1,000 ML IV CONT (01:21)
[2020-03-23 04:00] VITALS: BP 149/63; PULSE 62; RESP 16; TEMP 36.3; O2SAT 95
[2020-03-23 04:54] LABS: Albumin Level 3.6 g/dL (3.5-5.1); Anion Gap 10.4 mmol/L (7-16); Blood Urea Nitrogen 27 mg/dL (9-20); Calcium 8.6 mg/dL (8.4-10.2); Carbon Dioxide 29 mmol/L (22-30); Chloride 101 mmol/L (98-107); Estimated CRCL calculation 41 ml/min; Estimated Glomerular Filt Rate 49; Glucose 102 mg/dL (75-110); Phosphorus 3.7 mg/dL (2.5-4.5); Potassium 3.4 mmol/L (3.4-5.0); Sodium 137 mmol/L (137-145)
--- NOTE | 2020-03-23 08:18 | WPDGIPROGNO ---
Progress Note: A&P Additional Plan Patient feels much better today. No recent bowel movements. Denies abdominal pain. Tolerating diet well. Physical exam reveals abdomen to be benign. Bowel sounds are present soft and nontender. Labs reveal improved electrolytes. Azotemia resolved. Impression 1. Diarrhea. This is chronic. Underlying irritable bowel syndrome was initially suggested. He may have something else going on top of this. Stool cultures are pending. Currently improved after rehydration. Lomotil started yesterday will continue as needed after discharge. Plan to see in the office in several weeks. Hopefully discharge today if all agree. Subjective Date/time seen: 03/23/20 08:18 Objective Data Vital Signs Vital Signs: Vital Signs - 24 hr 03/22/20 09:20 03/22/20 12:00 03/22/20 16:00 Temperature 97.6 F 97.2 F L Pulse Rate 74 68 78 Respiratory Rate 18 18 Blood Pressure 151/58 H 130/59 L Pulse Oximetry 98 98 03/22/20 20:00 03/23/20 00:00 03/23/20 04:00 Temperature 97.1 F L 98.7 F 97.3 F L Pulse Rate 69 97 62 Respiratory Rate 16 16 16 Blood Pressure 139/61 142/66 H 149/63 H Pulse Oximetry 99 100 95 Intake/Output Intake/Output: Intake & Output 03/20/20 03/21/20 03/22/20 03/23/20 23:59 23:59 23:59 23:59 Intake Total 3215 3170 2970 1300 Output Total 1550 1825 2350 200 Balance 1665 7898 004 6029 Meds/Results Medications: Active Medications Generic Name Dose Route Start Last Admin Trade Name Freq PRN Reason Stop Dose Admin Acetaminophen 650 mg 03/20/20 00:49 Tylenol Tablet PO Q6H PRN Mild Pain (1-3) or Fever Hydrocodone Bitart/Acetaminophen 1 tab 03/19/20 13:29 03/20/20 02:14 [place] 5-325 Mg PO 1 tab Q4H PRN Administration Pain Rated 4-6 Hydrocodone Bitart/Acetaminophen 1 tab 03/20/20 00:49 [place] 5-325 Mg PO Q6H PRN Pain Rated 4-6 Albuterol 1 puff 03/22/20 14:44 Proventil Hfa INHALATION Q4HRT PRN sob Aspirin 81 mg 03/20/20 09:00 03/22/20 09:19 Aspirin Ec PO 81 mg DAILY RADHA Administration Atorvastatin Calcium 80 mg 03/20/20 09:00 03/22/20 09:19 Lipitor PO 80 mg DAILY RADHA Administration Calcium Polycarbophil 1,250 mg 03/21/20 17:00 03/22/20 17:26 Fiber Con PO 1,250 mg BIDWM RADHA Administration Diphenoxylate HCl/Atropine 1 tablet 03/22/20 10:33 Lomotil Tab 2.5 Mg PO PRN PRN Diarrhea Ferrous Sulfate 324 mg 03/20/20 09:00 03/22/20 09:19 Ferrous Sulfate PO 324 mg DAILY RADHA Administration Glucagon 1 mg 03/19/20 20:40 Glucagon For Inj IM PRN PRN Hypoglycemia Protocol Glucose 15 gm 03/19/20 20:40 Glutose 15 PO PRN PRN Hypoglycemia Protocol Sodium Bicarbonate 100 meq/ 1,100 mls @ 100 mls/hr 03/19/20 20:40 03/23/20 01:21 Sterile Water IV CONT 100 mls/hr .Q11H RADHA Administration Metoprolol Succinate 50 mg 03/23/20 09:00 Toprol Xl PO QAM RADHA Sertraline HCl 100 mg 03/20/20 09:00 03/22/20 09:19 Zoloft PO 100 mg DAILY RADHA Administration Temazepam 30 mg 03/20/20 21:00 03/22/20 20:19 Restoril PO 30 mg HS RADHA Administration Radiology Results: ITS Impressions Miscellaneous CT Procedure 03/19/20 12:09 IMPRESSION: 1. Age-indeterminate L1 compression fracture, new since the comparison examination, otherwise unchanged severe lumbar spondylosis at L5-S1. 2. No acute findings of the abdomen or pelvis. 3. Bilateral nephrolithiasis. Lumbar Spine MRI 03/20/20 11:56 IMPRESSION: 1. Acute/subacute L1 burst fracture. 2. 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 3. Severe lumbar spondylosis. Renal Ultrasound 03/20/20 12:07 IMPRESSION: 1. Sonographically unremarkable kidneys. Labs Labs: Laboratory Results - last 24 hr 03/22/20 03/23/20 11:47 04:17 Sodium 137 Potassium 3.4 Chloride 101
[2020-03-23] MEDS: POTASSIUM CHLORIDE 20 MEQ TABLET PO (08:42)
[2020-03-23 08:43] VITALS: PULSE 96
[2020-03-23] MEDS: calcium polycarbophiL 625 MG TABLET 1250 MG PO (08:43)
[2020-03-23] MEDS: FERROUS SULFATE 324 MG TABLET PO (08:43)
[2020-03-23] MEDS: ATORVASTATIN 40 MG TABLET 80 MG PO (08:43)
[2020-03-23] MEDS: METOPROLOL SUCCINATE EXT REL 50 MG TABCR PO (08:43)
[2020-03-23] MEDS: ASPIRIN 81 MG ENTERIC TABLET PO (08:43)
--- NOTE | 2020-03-23 08:44 | PM.PNNEP ---
Progress Note: A&P Assessment and Plan (1) Acute kidney injury: Code(s): N17.9 - Acute kidney failure, unspecified Status: Acute Assessment and Plan: The patient has acute kidney injury. His baseline creatinine is normal at 1.0. Renal ultrasound was okay. Urine electrolytes were mildly pre renal. Urine eosinophils are negative. Most likely he has acute kidney injury from dehydration +/- Bactrim He is eating well. creatinine is better. almost normal stop ivfs. D/W Dr Stahl (2) Hyperkalemia: Code(s): E87.5 - Hyperkalemia Status: Acute Assessment and Plan: The potassium was high due to his dehydration. Bactrim may have contributed a little bit. This has resolved (3) Metabolic acidosis: Code(s): E87.2 - Acidosis Status: Acute Assessment and Plan: This is resolved. (4) Essential hypertension: Code(s): I10 - Essential (primary) hypertension Status: Acute Assessment and Plan: His blood pressure is creeping up. metoprolol adjusted. restart olmesartan a week after discharge. (5) Anemia: Code(s): D64.9 - Anemia, unspecified Status: Acute (6) Tobacco abuse: Code(s): Z72.0 - Tobacco use Status: Acute Assessment and Plan: He is encouraged to stop smoking. (7) Kidney stones: Code(s): N20.0 - Calculus of kidney Status: Acute Assessment and Plan: No history for couple of years. Subjective Date/time seen: 03/23/20 08:44 Interval history: Atul is feeling better The patient is making urine. Review of Systems Cardiovascular: Cardiovascular: Reports no additional cardiovascular complaints Respiratory: Respiratory: Reports no additional respiratory complaints Gastrointestinal: Gastrointestinal: Reports no additional gastrointestinal complaints Genitourinary: Genitourinary: Reports no additional male genitourinary complaints Exam Narrative: Exam Narrative: WDWN in NAD skin no rash head ncat lungs clear to ausc cor reg no rub or gallop abd BS+ nontender and soft ext no edema. Objective Data Vital Signs Vital Signs: Vital Signs - 24 hr 03/22/20 09:20 03/22/20 12:00 03/22/20 16:00 Temperature 36.4 C 36.2 C L Pulse Rate 74 68 78 Respiratory Rate 18 18 Blood Pressure 151/58 H 130/59 L Pulse Oximetry 98 98 03/22/20 20:00 03/23/20 00:00 03/23/20 04:00 Temperature 36.2 C L 37.1 C 36.3 C L Pulse Rate 69 97 62 Respiratory Rate 16 16 16 Blood Pressure 139/61 142/66 H 149/63 H Pulse Oximetry 99 100 95 Intake/Output Intake/Output: Intake & Output 03/20/20 03/21/20 03/22/20 03/23/20 23:59 23:59 23:59 23:59 Intake Total 3215 3170 2970 1300 Output Total 1550 1825 2350 200 Balance 1665 6653 919 9189 Meds/Results Medications: Active Medications Generic Name Dose Route Start Last Admin Trade Name Freq PRN Reason Stop Dose Admin Acetaminophen 650 mg 03/20/20 00:49 Tylenol Tablet PO Q6H PRN Mild Pain (1-3) or Fever Hydrocodone Bitart/Acetaminophen 1 tab 03/19/20 13:29 03/20/20 02:14 [place] 5-325 Mg PO 1 tab Q4H PRN Administration Pain Rated 4-6 Hydrocodone Bitart/Acetaminophen 1 tab 03/20/20 00:49 [place] 5-325 Mg PO Q6H PRN Pain Rated 4-6 Albuterol 1 puff 03/22/20 14:44 Proventil Hfa INHALATION Q4HRT PRN sob Aspirin 81 mg 03/20/20 09:00 03/22/20 09:19 Aspirin Ec PO 81 mg DAILY RADHA Administration Atorvastatin Calcium 80 mg 03/20/20 09:00 03/22/20 09:19 Lipitor PO 80 mg DAILY RADHA Administration Calcium Polycarbophil 1,250 mg 03/21/20 17:00 03/22/20 17:26 Fiber Con PO 1,250 mg BIDWM RADHA Administration Diphenoxylate HCl/Atropine 1 tablet 03/22/20 10:33 Lomotil Tab 2.5 Mg PO PRN PRN Diarrhea Ferrous Sulfate 324 mg 03/20/20 09:00 03/22/20 09:19 Ferrous Sulfate PO 324 mg
[2020-03-23] MEDS: SERTRALINE HCL 50 MG TABLET 100 MG PO (08:45)
[2020-03-23 10:00] VITALS: BP 127/80; PULSE 95; RESP 18; TEMP 36.4; O2SAT 98
--- NOTE | 2020-03-25 12:13 | P.DS_ITS ---
DS: Admitting Diagnosis Admitting Diagnosis Admitting Diagnosis: Acute kidney failure, unspecified DS: Discharge Diagnosis Discharge Diagnosis (1) Acute kidney injury: Code(s): N17.9 - Acute kidney failure, unspecified Status: Acute Assessment and Plan: Likely multifactorial in etiology and due to hypoperfusion from relative hypotension for several weeks and profound dehydration from poor oral intake and ongoing diarrhea in the setting of ARB use. He has peripheral vascular disease thus stenosis is a consideration but rapidly improving with hydration * Normal saline was given in the ED but changed to bicarb drip given acidosis. * Renal ultrasound no obstruction and eosinophils negative. * Nephrology followed * Creatinine down to 1.4 at discharge (2) Hyperkalemia: Code(s): E87.5 - Hyperkalemia Status: Acute Assessment and Plan: * Secondary to acute kidney injury and metabolic acidosis in the setting of ARB use. * He has received appropriate treatment for such, with continued improvement in his potassium level 3.4 at discharge and supplemented with 20 meq po (3) Metabolic acidosis: Code(s): E87.2 - Acidosis Status: Acute Assessment and Plan: * Secondary to renal failure. * bicarbonate drip continued and c02 at 26 at discharge. (4) Closed compression fracture of L1 vertebra: Qualifiers: Encounter type: initial encounter Qualified Code(s): S32.010A - Wedge compression fracture of first lumbar vertebra, initial encounter for closed fracture Code(s): S32.010A - Wedge compression fracture of first lumbar vertebra, initial encounter for closed fracture Status: Acute Assessment and Plan: * Likely the cause of his significant back pain after fall several weeks ago as per HPI. * MR 40% collapse of L1 with acute fracture * PT/OT consulted as he needs to get up and moving. * Analgesics available as needed; * ortho added brace * Ambulating without pain at discharge and will follow with ortho 3-4 weeks (5) Anemia: Code(s): D64.9 - Anemia, unspecified Status: Acute Assessment and Plan: * Hemoglobin and hematocrit are stable on review of previous labs. (6) Essential hypertension: Code(s): I10 - Essential (primary) hypertension Status: Acute Assessment and Plan: * Blood pressures were soft and thus antihypertensives were held but with his history of coronary artery disease and restarted beta-sandy and told to hold ARB for one week at which point will have repeat bmp. * Has bp cuff at home to moniter too (7) Peripheral arterial disease: Code(s): I73.9 - Peripheral vascular disease, unspecified Status: Acute Assessment and Plan: * Continue aspirin and restart plavix /, . (8) Tobacco abuse: Code(s): Z72.0 - Tobacco use Status: Acute Assessment and Plan: * Smoking cessation is imperative although I am not certain he is motivated. * He declines the need for nicotine patch. (9) Coronary
--- NOTE | 2020-03-25 12:13 | PM.DS ---
DS: Admitting Diagnosis Admitting Diagnosis Admitting Diagnosis: Acute kidney failure, unspecified DS: Discharge Diagnosis Discharge Diagnosis (1) Acute kidney injury: Code(s): N17.9 - Acute kidney failure, unspecified Status: Acute Assessment and Plan: Likely multifactorial in etiology and due to hypoperfusion from relative hypotension for several weeks and profound dehydration from poor oral intake and ongoing diarrhea in the setting of ARB use. He has peripheral vascular disease thus stenosis is a consideration but rapidly improving with hydration Normal saline was given in the ED but changed to bicarb drip given acidosis. Renal ultrasound no obstruction and eosinophils negative. Nephrology followed Creatinine down to 1.4 at discharge (2) Hyperkalemia: Code(s): E87.5 - Hyperkalemia Status: Acute Assessment and Plan: Secondary to acute kidney injury and metabolic acidosis in the setting of ARB use. He has received appropriate treatment for such, with continued improvement in his potassium level 3.4 at discharge and supplemented with 20 meq po (3) Metabolic acidosis: Code(s): E87.2 - Acidosis Status: Acute Assessment and Plan: Secondary to renal failure. bicarbonate drip continued and c02 at 26 at discharge. (4) Closed compression fracture of L1 vertebra: Qualifiers: Encounter type: initial encounter Qualified Code(s): S32.010A - Wedge compression fracture of first lumbar vertebra, initial encounter for closed fracture Code(s): S32.010A - Wedge compression fracture of first lumbar vertebra, initial encounter for closed fracture Status: Acute Assessment and Plan: Likely the cause of his significant back pain after fall several weeks ago as per HPI. MR 40% collapse of L1 with acute fracture PT/OT consulted as he needs to get up and moving. Analgesics available as needed; ortho added brace Ambulating without pain at discharge and will follow with ortho 3-4 weeks (5) Anemia: Code(s): D64.9 - Anemia, unspecified Status: Acute Assessment and Plan: Hemoglobin and hematocrit are stable on review of previous labs. (6) Essential hypertension: Code(s): I10 - Essential (primary) hypertension Status: Acute Assessment and Plan: Blood pressures were soft and thus antihypertensives were held but with his history of coronary artery disease and restarted beta-sandy and told to hold ARB for one week at which point will have repeat bmp. Has bp cuff at home to moniter too (7) Peripheral arterial disease: Code(s): I73.9 - Peripheral vascular disease, unspecified Status: Acute Assessment and Plan: Continue aspirin and restart plavix /, . (8) Tobacco abuse: Code(s): Z72.0 - Tobacco use Status: Acute Assessment and Plan: Smoking cessation is imperative although I am not certain he is motivated. He declines the need for nicotine patch. (9) Coronary artery disease: Code(s): I25.10 - Atherosclerotic heart disease of [place] coronary artery without angina pectoris Status: Acute Assessment and Plan: stable continue aspirin, statin, and resumed beta-sandy (10) Chronic diarrhea: Code(s): K52.9 - Noninfective gastroenteritis and colitis, unspecified Status: Acute Assessment and Plan: diarrhea for several months and preceeded antibiotics for
== END 2020-03-23 13:15 | disposition home or self-care (01) | DRG 683 ==
LOC: ANHED 13:49 → ANHIMU 23:54 → ANH2MED 03-23 10:18 → ANHIMU 03-26 12:41
PROVIDERS: Internal Medicine Gastroenterology; Internal Medicine Nephrology; Orthopaedic Surgery; Physician Assistant; Admitting Provider Family Medicine; Emergency Provider Emergency Medicine; PCP Internal Medicine; Visit Provider Internal Medicine
DX: N17.9 Acute kidney failure, unspecified (principal); S32.010A Wedge compression fracture of first lumbar vertebra, initial encounter for closed fracture; E87.2 Acidosis; I95.9 Hypotension, unspecified; E87.5 Hyperkalemia; E86.0 Dehydration; K52.9 Noninfective gastroenteritis and colitis, unspecified; D64.9 Anemia, unspecified; I10 Essential (primary) hypertension; I73.9 Peripheral vascular disease, unspecified; F17.210 Nicotine dependence, cigarettes, uncomplicated; I25.10 Atherosclerotic heart disease of native coronary artery without angina pectoris; N20.0 Calculus of kidney; E78.5 Hyperlipidemia, unspecified; J44.9 Chronic obstructive pulmonary disease, unspecified; G47.33 Obstructive sleep apnea (adult) (pediatric); I25.2 Old myocardial infarction; Z79.82 Long term (current) use of aspirin; Z79.899 Other long term (current) drug therapy; Z86.010 Personal history of colon polyps; Z91.81 History of falling; Z95.1 Presence of aortocoronary bypass graft; Z98.49 Cataract extraction status, unspecified eye
CPT/HCPCS: 36415; 72133; 72148; 74176; 76775; 80048; 80053; 80069; 81003; 82274; 82306; 82550; 82570; 83735; 84100; 84133; 84156; 84300; 85025; 85027; 85999; 86160; 87015; 87045; 87046; 87177; 87209; 87269; 87272; 87324; 87427; 89055; 93005; 94640; 96361; 96374; 96375; 97110; 97116; 97162; 97165; 97530; 97535; 99291; A9270; J0610; J1815; J7030

== ENCOUNTER 2020-03-31 13:55 | Outpatient (CLI) | payer MEDICARE, SELFPAY ==
[2020-03-31 15:35] LABS: Anion Gap 7 mmol/L (8-16); Blood Urea Nitrogen 20 mg/dL (9-20); Carbon Dioxide 24 mmol/L (22-30); Chloride 110 mmol/L (98-107); Estimated Glomerular Filt Rate > 60; Glucose 102 mg/dL (75-110); Potassium 4.4 mmol/L (3.4-5.0); Sodium 141 mmol/L (137-145)
== END 2020-03-31 13:56 | disposition home or self-care (01) ==
PROVIDERS: PCP Internal Medicine; Referring Provider Internal Medicine; Visit Provider Internal Medicine
DX: E87.5 Hyperkalemia (principal); N17.9 Acute kidney failure, unspecified
CPT/HCPCS: 36415; 80048

== ENCOUNTER 2020-04-26 11:49 | Outpatient (CLI) | payer MEDICARE, SELFPAY ==
--- NOTE | ~2020-04-26 | MR_ITS ---
EXAMINATION: MR elbow LT wo con DATE: 04/26/2020 11:43 INDICATION: Left elbow cyst drainage for 3 months. Assess for osteomyelitis. TECHNIQUE: Magnetic resonance imaging (MRI) of the left elbow was performed without intravenous contr ast. Sequences included axial, sagittal and coronal T1-weighted FSE and T2-weighted FS FSE. COMPARISON: None FINDINGS: Evaluation of the cartilage and ligaments is mildly limited by motion artifact or blurring on multipl e sequences. Osseous/other: Normal alignment. No fracture. There is a large gas collection with absent signal at the olecranon bu rsa which measures approximately 3.1 cm proximal to distal, 2.8 cm medial to lateral and 2 0.7 cm in thickness. Thickened synovial lining to the bursa. There appears to be a subtle sinus tract extending distal/medially to the skin surface underlying the marker indicating the region of concern. There is prominent marrow edema in the underlying olecranon process centered around a shallow cortical erosio n along the posterior margin of the proximal tip of the olecranon which could be consistent with oste omyelitis although there is no definite geographic loss of T1 marrow fat signal to more specifically suggest this. Remainder of the marrow signal is normal. Mild tricompartmental osteoarthritis. Tendons: There is moderate tendinopathy of the distal triceps tendon. There is a partial-thickness tear involv ing the superficial half of the central third third of the tendon. Mild tendinopathy without discrete tear at the insertion of the biceps brachii tendon. The brachialis tendon is normal. Mild tendinopat hy without discrete tear at the common flexor tendon. Moderate tendinopathy with small partial-thickn ess tear at the lateral epicondylar origin of the common extensor tendon wad. Ligaments: The medial lateral ligament complex is normal. Scarring consistent with prior partial tear of the rad ial collateral ligament component of the lateral collateral ligament complex. The lateral ulnar colla teral ligament is normal. Cubital tunnel: Cubital tunnel is unremarkable with normal signal and caliber of the ulnar nerve. Fluid: Physiologic amount of fluid the elbow joint. IMPRESSION: 1. Sinus tract extending from skin surface to a thick-walled gas containing olecranon bursa which cou ld represent either a drained abscess or a septic bursitis. 2. Prominent marrow edema surrounding a shallow erosion at the proximal tip of the olecranon but with out evident loss of T1 marrow fat signal to more specifically suggest osteomyelitis which be consiste nt with but not diagnostic of osteomyelitis. Differential would include erosion in the setting of gou t or calcium pyrophosphate deposition (CPPD) disease. 3. Moderate tendinopathy and mild partial tear at the superficial central third of the distal triceps tendon which could be related to trauma or secondary to the adjacent septic versus aseptic inflammat ory olecranon bursitis. 4. Mild tendinopathy without discrete tear at the distal biceps brachii tendon and at the common flex or tendon wad. 5. Moderate tendinopathy and small partial-thickness tear at the lateral epicondylar origin of the co mmon extensor tendon wad. 6. Likely scarring related to chronic partial tear of the radial collateral ligament. 7. Mild tricompartmental osteoarthritis at the left elbow with no joint effusion to suggest septic ar thritis. Reviewed, dictated and finalized at location A. IMPRESSION: 1. Sinus tract extending from skin surface to a thick-walled gas containing ole cranon bursa which could represent either a drained abscess or a septic bursiti s. 2. Prominent marrow edema surrounding a shallow erosion at the proximal tip of the olecranon but witho
[2020-04-26 12:28] LABS: Basophils Percent Auto 0.6 % (0.2-1.2); Eosinophils Absolute Auto 0.3 K/mm3 (0-0.3); Eosinophils Percent Auto 3.8 % (0-4.4); Hematocrit 38.5 % (42.0-52.0); Hemoglobin 12.7 g/dL (14.0-18.0); Immature Granulocyte Absolute 0.02 K/mm3 (0.00-0.031); Immature Granulocyte Percent A 0.3 % (0-0.5); Lymphocytes Absolute Auto 1.32 K/mm3 (0.9-3.2); Lymphocytes Percent Auto 20.3 % (18.3-44.2); Mean Corpuscular Hemoglobin 30.5 pg (26-34); Mean Corpuscular Volume 92.3 fl (80-100); Mean Platelet Volume 12.5 fl (7.4-10.4); Monocytes Absolute Auto 0.6 K/mm3 (0.1-0.6); Monocytes Percent Auto 9.7 % (2.6-8.5); Neutrophils Absolute Auto 4.2 K/mm3 (1.3-6.7); Neutrophils Percent Auto 65.3 % (45.5-73.1); Platelet Count Result 127 k/mm3 (150-375); Red Blood Count 4.17 M/mm3 (4.6-6.20); Red Cell Distribution Width 13.2 % (11.5-14.5); White Blood Count 6.5 K/mm3 (4.5-10.0)
[2020-04-26 12:56] LABS: Alanine Aminotransferase 26 U/L (4-50); Albumin Level 4.1 g/dL (3.5-5.1); Alkaline Phosphatase 113 U/L (38-126); Anion Gap 5 mmol/L (8-16); Aspartate Amino Transferase 42 U/L (17-59); Bilirubin,Total 0.6 mg/dL (0.2-1.3); Blood Urea Nitrogen 19 mg/dL (9-20); Carbon Dioxide 25 mmol/L (22-30); Chloride 110 mmol/L (98-107); Cholesterol 117 mg/dL (0-200); Estimated Glomerular Filt Rate > 60; Glucose 93 mg/dL (75-110); HDL Direct 39 mg/dL; Sodium 140 mmol/L (137-145); Triglycerides 117 mg/dL (<150)
[2020-04-26 13:00] LABS: Microalbumin Urine Random 7.6 mg/L (0-16.7)
[2020-04-26 13:04] LABS: Creatinine Urine 185.5 mg/dL; MALB Creatinine Ratio 4.1 mg/g (0-30)
[2020-04-26 13:09] LABS: LDL Cholesterol Direct 60 mg/dL
== END 2020-04-26 11:50 | disposition home or self-care (01) ==
PROVIDERS: Internal Medicine; Referring Provider Internal Medicine Gastroenterology; Visit Provider Orthopaedic Surgery
DX: E78.5 Hyperlipidemia, unspecified (principal); M70.22 Olecranon bursitis, left elbow; D50.9 Iron deficiency anemia, unspecified; I10 Essential (primary) hypertension; D64.9 Anemia, unspecified; M79.89 Other specified soft tissue disorders; S46.312A Strain of muscle, fascia and tendon of triceps, left arm, initial encounter; M19.022 Primary osteoarthritis, left elbow
CPT/HCPCS: 36415; 73221; 80053; 80061; 82043; 84443; 85025

== ENCOUNTER 2020-05-05 16:31 | Outpatient (CLI) | payer MEDICARE, SELFPAY ==
--- NOTE | ~2020-05-05 | XR_ITS ---
EXAMINATION: XR chest 2V EXAM DATE: 05/05/2020 17:01 INDICATION: Osteomyelitis. Preoperative. TECHNIQUE: Frontal and lateral projections of the chest obtained and reviewed. Comparison is made to prior examination from 05/31/2019. FINDINGS: There is a new rounded approximately 1 cm density projecting over the midthoracic spine on the latera l projection which was not present on 2 prior chest x-rays. This is not specifically identified on th e frontal projection, and could indicate a new paraspinal nodule. Prior CT scan was also reviewed 2018, granulomatous described on that exam are not causing this finding. The lungs are otherwise clear. There are no pleural effusions. The cardiomediastinal silhouette is within normal limits. Some pericardial calcification identified. There is no pneumothorax suspected. Sternotomy wires are present without findings to suggest sternal dehiscence. The bones and soft tissu es are unremarkable. There are cholecystectomy clips. IMPRESSION: 1. Follow-up nonemergent low-dose chest CT recommended for new indeterminate paraspinal nodular densi ty. 2. Pericardial calcification. Reviewed, dictated and finalized at location A. IMPRESSION: 1. Follow-up nonemergent low-dose chest CT recommended for new indeterminate pa raspinal nodular density. 2. Pericardial calcification.
[2020-05-05 16:54] LABS: Basophils Percent Auto 0.4 % (0.2-1.2); Eosinophils Absolute Auto 0.3 K/mm3 (0-0.3); Eosinophils Percent Auto 3.7 % (0-4.4); Hematocrit 39.9 % (42.0-52.0); Hemoglobin 13.1 g/dL (14.0-18.0); Immature Granulocyte Absolute 0.01 K/mm3 (0.00-0.031); Immature Granulocyte Percent A 0.1 % (0-0.5); Lymphocytes Absolute Auto 1.06 K/mm3 (0.9-3.2); Mean Corpuscular HGB Conc 32.8 g/dl (32-36); Mean Corpuscular Hemoglobin 30.3 pg (26-34); Mean Corpuscular Volume 92.1 fl (80-100); Mean Platelet Volume 12.3 fl (7.4-10.4); Monocytes Absolute Auto 0.6 K/mm3 (0.1-0.6); Neutrophils Absolute Auto 5.1 K/mm3 (1.3-6.7); Neutrophils Percent Auto 71.8 % (45.5-73.1); Platelet Count Result 119 k/mm3 (150-375); Red Blood Count 4.33 M/mm3 (4.6-6.20); Red Cell Distribution Width 12.9 % (11.5-14.5); White Blood Count 7.1 K/mm3 (4.5-10.0)
[2020-05-05 17:08] LABS: Anion Gap 7 mmol/L (8-16); Blood Urea Nitrogen 23 mg/dL (9-20); Calcium 9.2 mg/dL (8.4-10.2); Carbon Dioxide 26 mmol/L (22-30); Chloride 106 mmol/L (98-107); Estimated Glomerular Filt Rate > 60; Glucose 105 mg/dL (75-110); Potassium 4.6 mmol/L (3.4-5.0); Sodium 139 mmol/L (137-145)
[2020-05-05 17:40] LABS: Erythrocyte Sedimentation Rate 21 mm/hr (0-20)
== END 2020-05-05 16:32 | disposition home or self-care (01) ==
PROVIDERS: Visit Provider Orthopaedic Surgery
DX: Z01.818 Encounter for other preprocedural examination (principal); E55.9 Vitamin D deficiency, unspecified; I10 Essential (primary) hypertension; M70.22 Olecranon bursitis, left elbow; R91.8 Other nonspecific abnormal finding of lung field
CPT/HCPCS: 36415; 71046; 80048; 82306; 85025; 85652; 86140

== ENCOUNTER 2020-05-06 12:23 | Outpatient (CLI) | payer MEDICARE, SELFPAY | END 2020-05-06 12:24 | disposition home or self-care (01) | LOC: ANHSURGERY 12:25 | PROVIDERS: Visit Provider Orthopaedic Surgery | DX: M86.9 Osteomyelitis, unspecified (principal) | CPT/HCPCS: 87070 ==

== ENCOUNTER 2020-05-07 00:54 | Outpatient (CLI) | payer MEDICARE, SELFPAY ==
[2020-05-07 18:28] LABS: SARS-CoV-2 RNA PCR Negative
== END 2020-05-07 00:55 | disposition home or self-care (01) ==
LOC: ANHCOVIDDT 00:55
PROVIDERS: Visit Provider Orthopaedic Surgery
DX: Z01.812 Encounter for preprocedural laboratory examination (principal); Z20.828 Contact with and (suspected) exposure to other viral communicable diseases
CPT/HCPCS: 87635; C9803; U0003

== ENCOUNTER 2020-05-09 04:20 | Day surgery (SDC) | payer MEDICARE, SELFPAY ==
[2020-05-02 14:15] VITALS: BMI 23.0
--- NOTE | 2020-05-07 12:26 | PM.IMHP ---
H&P: HPI History of Present Illness Date/Time: 05/07/20 12:26 <GLEN Diaz - Last Filed: 05/07/20 12:38> Chief complaint: Septic Bursistis Left Elbow, Osteomyelitis Olecran <GLEN Daiz - Last Filed: 05/07/20 12:38> Narrative: Atul Fernando is a 75 year old male Patient of who presents today for debridement his left olecranon bursa. He started having drainage from the bursa in early January of this year. It came on spontaneously. He woke with some drainage an open sinus the left olecranon. He did have some redness and warmth. He was seen in the emergency and was started on antibiotics for 1 week this was in early January. He was initially evaluated on 01/22 in our office. At that time he had a very benign looking left bursa. It did have a small dry eschar at that time over the olecranon bursa. He has had episodes of the sinus opening multiple times and continuing to drain. He has been on antibiotics, Bactrim he has been off the antibiotics now for month. He continues to have episodes of draining from an open sinus of the olecranon bursa. There is no definite evidence significant infection. He has had a recent MRI scan which did show some mild edema deeper to the olecranon bursa and also some possible superficial osteomyelitis. Due to the length time that he has had continuous drainage from his left olecranon well as the recent MRI scan findings textures recommended debridement of the olecranon bursa well as cultures of the bone and some debridement of the bone if there is evidence of osteomyelitis at time surgery. <GLEN Diaz - Last Filed: 05/07/20 12:38> [facility] Past Medical History Medical History: Medical History Anemia Benign colon polyp Chronic obstructive pulmonary disease Coronary artery disease With history of [place]. Status post 4 vessel CABG in 2000 with PELAEZ to LAD, SVG to RCA, radial to OM, and SVG to diagonal. All vessels were patent except for the SVG to diagonal which was occluded and 50% stenosis of the SVG to the RCA on cardiac catheterization done at [place] in 2016. Diverticulitis (~01/2018) Dyslipidemia Essential hypertension Gastroesophageal reflux disease History of ESBL Klebsiella pneumoniae infection Irritable bowel syndrome with diarrhea Kidney stones Obstructive sleep apnea Peripheral arterial disease With chronic right lower extremity claudication. Arteriogram done over a decade ago showed an occluded right femoral artery which has been treated with dual anti-platelet therapy. He has refused surgical intervention. Primary insomnia Pulmonary nodules Being monitored on serial CT scans. 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 Pagan, workup initiated for iron deficiency anemia. Syncope Loop recorder was unrevealing and was removed in 2017. Tobacco abuse <GLEN Diaz - Last Filed: 05/07/20 12:38> Surgical History Surgical History: Surgical History History of cataract extraction History of cystoscopy History of four vessel coronary artery bypass graft (~2000) Cardiac catheterization at [place] in 2015 showed occluded SVG to diagonal, 50% stenosis of SVG to RCA, patent PELAEZ to LAD, and patent radial to OM. History of laparoscopic cholecystectomy (~02/2015) History of lithotripsy History of loop recorder Subsequently removed in 2017. History of surgery on arm Repair right triceps. History of tonsillectomy Status post dilatation of esophageal stricture Status post surgical removal of malignant neoplasm of skin Excision of skin cancer from ear. <GLEN Diaz - Last Filed: 05/07/20 12:38> Family History Family History: Family History Mother Cerebrovascular accident, Onset Age: 88 Family history of heart
--- NOTE | 2020-05-08 10:22 | WPDANESEPPF ---
Anes - Initial Pre Proc Eval Procedure: Operation Date: 05/09/20 12:30 Proposed Procedures p Debridement Left Olecranon Bursa, Debridement Olecranon Bone Left Elbow - Akhil Webber MD Date/Time: 05/08/20 10:22 Surgeon: Akhil Webber MD Pre Op Diagnosis: Septic Bursistis Left Elbow, Osteomyelitis Olecran Patient Data Age: 75 Gender: M Height: 1.8 m Weight: 74.85 kg Allergies Allergy/AdvReac Type Severity Reaction Status Date / Time levofloxacin Allergy Unknown PAIN IN Verified 05/12/20 12:45 PENIS Home Medications Medication Instructions Recorded Confirmed Type albuterol sulfate 90 mcg/actuation 1 inhalation INHALATION PRN PRN 07/25/19 05/09/20 History aerosol inhaler aspirin 81 mg tablet,delayed 81 mg PO QNOON 07/25/19 05/09/20 History release fluticasone fur. 100 mcg-umeclid 1 inhalation INHALATION DAILY 07/25/19 05/09/20 History 62.5 mcg-vilant 25 mcg inhalat.powder metoprolol succinate 50 mg 50 mg PO QNOON 07/25/19 05/09/20 History tablet,extended release 24 hr temazepam 30 mg capsule 30 mg PO HS 07/25/19 05/09/20 History clopidogrel 75 mg PO QNOON 03/04/20 05/09/20 History atorvastatin 80 mg PO QNOON 05/02/20 05/09/20 History diphenoxylate-atropine 1 tablet PO QNOON PRN 05/02/20 05/09/20 History ferrous sulfate 325 mg PO QNOON 05/02/20 05/09/20 History olmesartan 40 mg PO QNOON 05/02/20 05/09/20 History sertraline 100 mg PO QNOON 05/02/20 05/09/20 History cephalexin [Keflex] 500 mg PO Q6H #52 cap 05/09/20 Rx hydrocodone-acetaminophen [[place]] 1 tablet PO Q4H PRN #30 tablet 05/09/20 Rx Patient hx anesthesia problems: none Family hx anesthesia problems: none PMFSH Past Medical History Medical History Anemia Benign colon polyp Chronic obstructive pulmonary disease Coronary artery disease With history of [place]. Status post 4 vessel CABG in 2000 with PELAEZ to LAD, SVG to RCA, radial to OM, and SVG to diagonal. All vessels were patent except for the SVG to diagonal which was occluded and 50% stenosis of the SVG to the RCA on cardiac catheterization done at [place] in 2015. Diverticulitis (~01/2018) Dyslipidemia Essential hypertension Gastroesophageal reflux disease History of ESBL Klebsiella pneumoniae infection Irritable bowel syndrome with diarrhea Kidney stones Obstructive sleep apnea Peripheral arterial disease With chronic right lower extremity claudication. Arteriogram done over a decade ago showed an occluded right femoral artery which has been treated with dual anti-platelet therapy. He has refused surgical intervention. Primary insomnia Pulmonary nodules Being monitored on serial CT scans. 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 Pagan, workup initiated for iron deficiency anemia. Syncope Loop recorder was unrevealing and was removed in 2017. Tobacco abuse Surgical History Surgical History History of cataract extraction History of cystoscopy History of four vessel coronary artery bypass graft (~2000) Cardiac catheterization at [place] in 2015 showed occluded SVG to diagonal, 50% stenosis of SVG to RCA, patent PELAEZ to LAD, and patent radial to OM. History of laparoscopic cholecystectomy (~02/2015) History of lithotripsy History of loop recorder Subsequently removed in 2017. History of surgery on arm Repair right triceps. History of tonsillectomy Status post dilatation of esophageal stricture Status post surgical removal of malignant neoplasm of skin Excision of skin cancer from ear. Family History Family History Mother Cerebrovascular accident, Onset Age: 88 Family history of heart disease in male family member before age 55 Family history of cardiovascular disease, Onset Age: 88 Family history of arthritis, Onset Age: 88 P
[2020-05-09] VITALS (8 sets, daily range): BP systolic 110–156; BP diastolic 48–67; PULSE 44–54; RESP 12–16; TEMP 36.3–36.4; O2SAT 95–100
[2020-05-09] MEDS: ACETAMINOPHEN 500 MG TABLET 1000 MG PO (10:40)
[2020-05-09] MEDS: LACTATED RINGERS 1,000 ML 30 ML IV CONT ×2 (10:54→14:09)
[2020-05-09] MEDS: KETOROLAC 15 MG/ML VIAL (*BKC) IV PUSH (10:55)
--- NOTE | 2020-05-09 11:25 | WPDANESEPPF ---
Anes - Initial Pre Proc Eval Procedure: Operation Date: 05/09/20 12:30 Proposed Procedures p Debridement Left Olecranon Bursa, Debridement Olecranon Bone Left Elbow - Akhil Webber MD Date/Time: 05/09/20 11:25 Surgeon: Akhil Webber MD Pre Op Diagnosis: Septic Bursistis Left Elbow, Osteomyelitis Olecran Patient Data Age: 75 Gender: M Height: 5 ft 11 in Weight: 73.8 kg Last Vital Signs Temp 36.4 C L 05/09/20 11:02 Pulse 45 L 05/09/20 11:02 Resp 16 05/09/20 11:02 BP 156/59 H 05/09/20 11:02 Pulse Ox 100 05/09/20 11:02 Allergies Allergy/AdvReac Type Severity Reaction Status Date / Time levofloxacin Allergy Unknown PAIN IN Verified 05/09/20 10:30 PENIS Home Medications Medication Instructions Recorded Confirmed Type albuterol sulfate 90 mcg/actuation 1 inhalation INHALATION PRN PRN 07/25/19 05/09/20 History aerosol inhaler aspirin 81 mg tablet,delayed 81 mg PO QNOON 07/25/19 05/09/20 History release fluticasone fur. 100 mcg-umeclid 1 inhalation INHALATION DAILY 07/25/19 05/09/20 History 62.5 mcg-vilant 25 mcg inhalat.powder metoprolol succinate 50 mg 50 mg PO QNOON 07/25/19 05/09/20 History tablet,extended release 24 hr temazepam 30 mg capsule 30 mg PO HS 07/25/19 05/09/20 History clopidogrel 75 mg PO QNOON 03/04/20 05/09/20 History atorvastatin 80 mg PO QNOON 05/02/20 05/09/20 History diphenoxylate-atropine 1 tablet PO QNOON PRN 05/02/20 05/09/20 History ferrous sulfate 325 mg PO QNOON 05/02/20 05/09/20 History olmesartan 40 mg PO QNOON 05/02/20 05/09/20 History sertraline 100 mg PO QNOON 05/02/20 05/09/20 History Patient hx anesthesia problems: none Family hx anesthesia problems: none PMFSH Past Medical History Medical History Anemia Benign colon polyp Chronic obstructive pulmonary disease Coronary artery disease With history of [place]. Status post 4 vessel CABG in 2000 with PELAEZ to LAD, SVG to RCA, radial to OM, and SVG to diagonal. All vessels were patent except for the SVG to diagonal which was occluded and 50% stenosis of the SVG to the RCA on cardiac catheterization done at [place] in 2016. Diverticulitis (~01/2018) Dyslipidemia Essential hypertension Gastroesophageal reflux disease History of ESBL Klebsiella pneumoniae infection Irritable bowel syndrome with diarrhea Kidney stones Obstructive sleep apnea Peripheral arterial disease With chronic right lower extremity claudication. Arteriogram done over a decade ago showed an occluded right femoral artery which has been treated with dual anti-platelet therapy. He has refused surgical intervention. Primary insomnia Pulmonary nodules Being monitored on serial CT scans. 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 Pagan, workup initiated for iron deficiency anemia. Syncope Loop recorder was unrevealing and was removed in 2017. Tobacco abuse Surgical History Surgical History History of cataract extraction History of cystoscopy History of four vessel coronary artery bypass graft (~2000) Cardiac catheterization at [place] in 2016 showed occluded SVG to diagonal, 50% stenosis of SVG to RCA, patent PELAEZ to LAD, and patent radial to OM. History of laparoscopic cholecystectomy (~02/2015) History of lithotripsy History of loop recorder Subsequently removed in 2017. History of surgery on arm Repair right triceps. History of tonsillectomy Status post dilatation of esophageal stricture Status post surgical removal of malignant neoplasm of skin Excision of skin cancer from ear. Family History Family History Mother Cerebrovascular accident, Onset Age: 88 Family history of heart disease in male family member before age 55 Family history of cardiovascular disease, Onset Age: 88 Fami
--- NOTE | 2020-05-09 12:15 | WPDHPUPDATE1 ---
History and Physical Update Update Date/Time: 05/09/20 12:15 History and Physical has been reviewed, including an updated exam of the patient. There are NO changes in the patient's condition. Risks, benefits, and alternatives have been discussed and questions answered. Patient agrees to proceed with procedure.
[2020-05-09] MEDS: ceFAZolin SODIUM 1 GM VIAL IRRIGATION (12:44)
[2020-05-09] MEDS: ceFAZolin 2 GM/D5W 50 ML 2 GM/50 ML BAG IVPB (13:25)
--- NOTE | 2020-05-09 14:51 | PM.PROC ---
Procedure Note - Detailed Date of procedure: 05/09/20 Pre-op diagnosis: Septic Bursistis Left Elbow, Osteomyelitis Olecran Chronic draining sinus left olecranon bursa, possible septic bursitis, possible partial triceps tendon avulsion possible olecranon osteomyelitis. Post-op diagnosis: same Procedure performed: Same, evidence of partial tearing posterior lateral portion of triceps tendon non retracted, no evidence of osteomyelitis. Procedure procedure excision of sinus tract left olecranon bursa, 3 cultures, bursectomy and repair partial triceps tendon tear placement of drain. Description of procedure: Patient was brought to the operating room and general anesthesia was administered. The left arm was prepped with DuraPrep the sinus Tyesha with Betadine. Antibiotics were held. The sinus was ellipsed carefully. Limb was exsanguinated tourniquet elevated to 200 mmHg. A 3 in longitudinal incision was made lateral to the olecranon and there is a large chronic bursa that was white and bland. As we entered this there was a pocket of clear fluid that was expressed probably had 3 or 4 cc of fluid in it. The fluid looked clear. We carefully dissected the bursal tissue off of the under surface of the skin and off of the proximal lateral forearm fascia and the medial proximal forearm fascia mobilize this proximally and we could see there was a hole in the center of this which communicated to a rough spot on the dorsal surface of the proximal olecranon. It was not an avulsion but a bare area in the bursal coating I believe. We sent some of the fluid for culture the a swab inserted through the sinus tract and a specimen of the bursa was sent for culture as well as the bursa directly superficial to the area of exposed bone surface of the olecranon which is about 8 or 9 mm diameter. Bone was not soft or necrotic or abnormal appearance to the did not appear to have osteomyelitis there. The we could see the bursal mass we had freed up distally was attached to a portion of the triceps tendon involving the superficial triceps fibers and lateral triceps fibers. There was triceps deep to this as well so was not a full-thickness but almost a superficial posterolateral lamina of triceps tendon fibers but these were definitely in continuity with the muscle proximally. We excised the bursal tissue from the end of the tendon fibers. Where it blended was a bit obscured but we hyperflexed the elbow and found the to the fibers seem to terminate at the hole in the bursa we reexcised the tissue distal to the hole and that was the bursal tissue and then with the elbow hyperflexed we could appreciate a shallow defect from where the tendon had delaminated and detached from the deeper layers of tendon and we used a and O 0 PDS and a running mattress fashion securing the tendon edge to this defect on the posterior aspect of the distal portion of the olecranon again it was not attached to bone as there was no exposed bone in this area. The area of exposed bone was on the dorsal posterior surface distal to the tip of the olecranon. We over sewed this with a 3 0 PDS as well and I could hyperflexed the elbow to 145? without any tension on this. Tourniquet was released. The wound thoroughly irrigated with Ancef solution and we carefully looked for any other bursal debridement was clear. We agree approximated the ellipse the sinus tract with 5 0 nylon suture and closed the skin with 3 0 subcuticular Vicryl and glue. He was placed in a volar splint soft noncompressive padding over the posterior wound with the elbow at 30? of flexion to avoid pressure on the skin posteriorly did use a 1/8 inch drain we brought out proximally. He was transferred postop recovery room stable condition. No no complications. Our plan is to use [place] oral antibiotics as he did not have gross infection and I prescribed Keflex 500 mg q.i.d. and we will wait for the results of the cultures and he will be made an outpatient and I
== END 2020-05-09 15:50 | disposition home or self-care (01) ==
PROVIDERS: Visit Provider Orthopaedic Surgery
PROC: (CPT 24105; principal; 2020-05-09 12:30)
DX: M71.122 Other infective bursitis, left elbow (principal); I25.10 Atherosclerotic heart disease of native coronary artery without angina pectoris; J44.9 Chronic obstructive pulmonary disease, unspecified; E78.5 Hyperlipidemia, unspecified; I10 Essential (primary) hypertension; K21.9 Gastro-esophageal reflux disease without esophagitis; K58.0 Irritable bowel syndrome with diarrhea; G47.33 Obstructive sleep apnea (adult) (pediatric); I73.9 Peripheral vascular disease, unspecified; F17.210 Nicotine dependence, cigarettes, uncomplicated; Z95.1 Presence of aortocoronary bypass graft; Z79.02 Long term (current) use of antithrombotics/antiplatelets
CPT/HCPCS: 24105; 36415; 71046; 80048; 82306; 85025; 85652; 86140; 87070; 87075; 87205; A9270; J0690; J1885; J2405; J2704; J3010; J3370; J7120

== ENCOUNTER 2020-06-18 13:01 | Outpatient (CLI) | payer MEDICARE, SELFPAY ==
[2020-06-18 13:25] LABS: Hemoglobin 13.8 g/dL (14.0-18.0); Mean Corpuscular HGB Conc 32.9 g/dl (32-36); Mean Corpuscular Hemoglobin 30.3 pg (26-34); Mean Corpuscular Volume 92.1 fl (80-100); Mean Platelet Volume 11.9 fl (7.4-10.4); Platelet Count Result 109 k/mm3 (150-375); Red Blood Count 4.56 M/mm3 (4.6-6.20); Red Cell Distribution Width 13.6 % (11.5-14.5); White Blood Count 7.5 K/mm3 (4.5-10.0)
[2020-06-18 13:37] LABS: Anion Gap 5 mmol/L (8-16); Blood Urea Nitrogen 19 mg/dL (9-20); Calcium 9.3 mg/dL (8.4-10.2); Carbon Dioxide 32 mmol/L (22-30); Chloride 107 mmol/L (98-107); Estimated Glomerular Filt Rate > 60; Glucose 123 mg/dL (75-110); Potassium 4.3 mmol/L (3.4-5.0); Sodium 144 mmol/L (137-145)
[2020-06-18 13:46] LABS: NT Pro B Type Natriuretic Pept 699 PG/ML (5-100)
== END 2020-06-18 13:02 | disposition home or self-care (01) ==
PROVIDERS: PCP Internal Medicine
DX: D50.0 Iron deficiency anemia secondary to blood loss (chronic) (principal); R06.00 Dyspnea, unspecified
CPT/HCPCS: 36415; 80048; 83880; 85027; 85055

== ENCOUNTER 2020-11-27 12:30 | Outpatient (CLI) | payer MEDICARE, SELFPAY ==
[2020-11-27 12:51] LABS: Basophils Percent Auto 0.6 % (0.2-1.2); Eosinophils Absolute Auto 0.2 K/mm3 (0-0.3); Eosinophils Percent Auto 2.5 % (0-4.4); Hematocrit 36.4 % (42.0-52.0); Hemoglobin 11.6 g/dL (14.0-18.0); Immature Granulocyte Absolute 0.01 K/mm3 (0.00-0.031); Immature Granulocyte Percent A 0.1 % (0-0.5); Lymphocytes Absolute Auto 1.03 K/mm3 (0.9-3.2); Lymphocytes Percent Auto 14.5 % (18.3-44.2); Mean Corpuscular HGB Conc 31.9 g/dl (32-36); Mean Corpuscular Volume 84.7 fl (80-100); Mean Platelet Volume 11.5 fl (7.4-10.4); Monocytes Absolute Auto 0.7 K/mm3 (0.1-0.6); Monocytes Percent Auto 9.3 % (2.6-8.5); Neutrophils Absolute Auto 5.2 K/mm3 (1.3-6.7); Platelet Count Result 141 k/mm3 (150-375); Red Cell Distribution Width 16.1 % (11.5-14.5); White Blood Count 7.1 K/mm3 (4.5-10.0)
[2020-11-27 13:03] LABS: Alanine Aminotransferase 38 U/L (4-50); Albumin Level 4.2 g/dL (3.5-5.1); Alkaline Phosphatase 236 U/L (38-126); Anion Gap 7 mmol/L (8-16); Aspartate Amino Transferase 42 U/L (17-59); Bilirubin,Total 0.5 mg/dL (0.2-1.3); Blood Urea Nitrogen 20 mg/dL (9-20); Calcium 8.9 mg/dL (8.4-10.2); Carbon Dioxide 25 mmol/L (22-30); Chloride 112 mmol/L (98-107); Estimated Glomerular Filt Rate > 60; Glucose 106 mg/dL (75-110); Potassium 4.3 mmol/L (3.4-5.0); Sodium 144 mmol/L (137-145)
== END 2020-11-27 12:31 | disposition home or self-care (01) ==
PROVIDERS: PCP Internal Medicine; Visit Provider Internal Medicine
DX: I73.9 Peripheral vascular disease, unspecified (principal); I10 Essential (primary) hypertension
CPT/HCPCS: 36415; 80053; 85025

== ENCOUNTER 2020-12-10 11:51 | Inpatient (IN) | payer MEDICARE, SELFPAY ==
[2020-12-10] VITALS (10 sets, daily range): BP systolic 107–159; BP diastolic 67–96; PULSE 59–72; RESP 15–20; TEMP 36.1–37; O2SAT 95–100; BMI 23.3
--- NOTE | ~2020-12-10 | XR_ITS ---
EXAMINATION: XR chest 1V portable DATE: 12/10/2020 12:35 INDICATION: Shortness of breath and cough. Left chest pressure. TECHNIQUE: A single frontal view of the chest was obtained. COMPARISON: Chest 2 views 05/05/2020, CT abdomen and pelvis 03/19/2020 FINDINGS: The chest demonstrates clear lungs without pneumonia, pleural effusion, or pneumothorax. Th e heart size is normal. Median sternotomy wires are noted. IMPRESSION: 1. No acute cardiopulmonary disease. Reviewed, dictated and finalized at location B.
--- NOTE | 2020-12-10 12:14 | ECG_ITS ---
Measurements Intervals [place] Rate: 61 P: 15 PA: 138 QRS: 58 QRSD: 101 T: -80 QT: 417 QTc: 423 Interpretive Statements SINUS RHYTHM POSSIBLE LEFT ATRIAL ENLARGEMENT LOW QRS VOLTAGE IN LIMB LEADS T WAVE ABNORMALITY IN INFERIOR LEADS- CONSIDER ISCHEMIA BASELINE ARTIFACT- I, II, AVR, AVF ABNORMAL ECG Electronically Signed On 12-10-2020 14:21:06 CDT by Yuval Mcbride D.O.
--- NOTE | 2020-12-10 12:15 | ED.CHESTPAIN ---
HPI - Chest Pain General Chief Complaint: Chest Pain Stated Complaint: cp Time Seen by Provider: 12/10/20 12:05 Source: RN notes reviewed History of Present Illness HPI narrative: Patient presents emergency department from home for left-sided chest pain. Patient states he has had intermittent left-sided chest pain for the past 3 days that is described as a pressure. It is associated with shortness of breath. He states he currently has no chest pain. Patient states that shortness of breath will be worse at night and will be improved when he sits upright he denies any fevers or chills. He notes an occasional cough he denies any abdominal pain nausea vomiting or any other symptoms. History of coronary artery disease and is followed by cardiology in [place] Related Data Home Medications Medication Instructions Recorded Confirmed aspirin 81 mg tablet,delayed 81 mg PO QNOON 07/25/19 11/10/20 release fluticasone fur. 100 mcg-umeclid 1 inhalation INHALATION DAILY 07/25/19 11/10/20 62.5 mcg-vilant 25 mcg inhalat.powder metoprolol succinate 50 mg 50 mg PO QNOON 07/25/19 11/10/20 tablet,extended release 24 hr clopidogrel 75 mg PO QNOON 03/04/20 11/10/20 diphenoxylate-atropine 1 tablet PO QNOON PRN 05/02/20 11/10/20 ferrous sulfate 325 mg PO QNOON 05/02/20 11/10/20 olmesartan 40 mg PO QNOON 05/02/20 11/10/20 Allergies Allergy/AdvReac Type Severity Reaction Status Date / Time levofloxacin Allergy Unknown PAIN IN Verified 11/10/20 12:57 PENIS Review of Systems Review of Systems: Narrative: Gen.: Denies fevers or chills ENT: Denies congestion Respiratory: Reports shortness of breath CV: See HPI GI: Denies abdominal pain nausea, emesis or diarrhea Musculoskeletal: Denies back pain or muscle pain Neuro: Denies numbness, tingling, weakness or focal weakness Skin: Denies rash Except as documented, all other systems reviewed and negative [facility] Past Medical History Medical History Anemia Benign colon polyp Chronic obstructive pulmonary disease Coronary artery disease With history of RI. Status post 4 vessel CABG in 2000 with PELAEZ to LAD, SVG to RCA, radial to OM, and SVG to diagonal. All vessels were patent except for the SVG to diagonal which was occluded and 50% stenosis of the SVG to the RCA on cardiac catheterization done at [place] in 2015. Diverticulitis (~01/2018) Dyslipidemia Essential hypertension Gastroesophageal reflux disease History of ESBL Klebsiella pneumoniae infection Irritable bowel syndrome with diarrhea Kidney stones Obstructive sleep apnea Peripheral arterial disease With chronic right lower extremity claudication. Arteriogram done over a decade ago showed an occluded right femoral artery which has been treated with dual anti-platelet therapy. He has refused surgical intervention. Primary insomnia Pulmonary nodules Being monitored on serial CT scans. 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 Pagan, workup initiated for iron deficiency anemia. Syncope Loop recorder was unrevealing and was removed in 2016. Tobacco abuse Surgical History Surgical History History of cataract extraction History of cystoscopy History of four vessel coronary artery bypass graft (~2000) Cardiac catheterization at [place] in 2015 showed occluded SVG to diagonal, 50% stenosis of SVG to RCA, patent PELAEZ to LAD, and patent radial to OM. History of laparoscopic cholecystectomy (~02/2015) History of lithotripsy History of loop recorder Subsequently removed in 2017. History of surgery on arm Repair right triceps. History of tonsillectomy Status post dilatation of esophageal stricture Status post surgical removal of malignant neoplasm of skin Excision of skin cancer from ear. Family History Family History (Reviewed 05/09/20 @ 11:25 by Alon
[2020-12-10 12:30] LABS: Basophils Absolute Auto 0.1 K/mm3 (0.0-0.1); Basophils Percent Auto 0.6 % (0.2-1.2); Eosinophils Absolute Auto 0.3 K/mm3 (0-0.3); Eosinophils Percent Auto 3.6 % (0-4.4); Hematocrit 37.5 % (42.0-52.0); Hemoglobin 11.6 g/dL (14.0-18.0); Immature Granulocyte Absolute 0.03 K/mm3 (0.00-0.031); Immature Granulocyte Percent A 0.4 % (0-0.5); Lymphocytes Absolute Auto 1.26 K/mm3 (0.9-3.2); Lymphocytes Percent Auto 15.8 % (18.3-44.2); Mean Corpuscular HGB Conc 30.9 g/dl (32-36); Mean Corpuscular Volume 87.4 fl (80-100); Mean Platelet Volume 12.2 fl (7.4-10.4); Monocytes Absolute Auto 0.8 K/mm3 (0.1-0.6); Monocytes Percent Auto 9.5 % (2.6-8.5); Neutrophils Absolute Auto 5.6 K/mm3 (1.3-6.7); Neutrophils Percent Auto 70.1 % (45.5-73.1); Platelet Count Result 154 k/mm3 (150-375); Red Blood Count 4.29 M/mm3 (4.6-6.20); Red Cell Distribution Width 18.1 % (11.5-14.5)
[2020-12-10 12:42] LABS: Anion Gap 5 mmol/L (8-16); Blood Urea Nitrogen 17 mg/dL (9-20); Calcium 8.9 mg/dL (8.4-10.2); Carbon Dioxide 29 mmol/L (22-30); Chloride 108 mmol/L (98-107); Estimated CRCL calculation 58 ml/min; Estimated Glomerular Filt Rate > 60; Glucose 109 mg/dL (75-110); Potassium 4.4 mmol/L (3.4-5.0); Sodium 142 mmol/L (137-145)
[2020-12-10 12:45] LABS: Prothrombin Time 13.5 Seconds (11.1-14.7)
[2020-12-10 12:46] LABS: Partial Thromboplastin Time 27.8 SECONDS (22.3-36.8)
[2020-12-10 12:58] LABS: NT Pro B Type Natriuretic Pept 3510 PG/ML (5-100); Troponin I 0.103 ng/mL (0.000-0.034)
--- NOTE | 2020-12-10 13:14 | PC.NURSE ---
Dr. Nolan at bedside to update pt and on POC. Pt resting on cart HOB elevated, non-labored respirations. Call light within reach
[2020-12-10] MEDS: CLOPIDOGREL BISULFATE 75 MG TABLET PO (13:36)
[2020-12-10] MEDS: FUROSEMIDE INJ 40 MG/4 ML VIAL IV PUSH (13:36)
[2020-12-10] MEDS: ASPIRIN 81 MG CHEWABLE TABLET PO (13:36)
--- NOTE | 2020-12-10 14:30 | PM.IMHP ---
H&P: HPI History of Present Illness Date/Time: 12/10/20 14:30 <Helen Reagan PA-C - Last Filed: 12/10/20 19:54> Chief Complaint: Chest pain. <Helen Reagan PA-C - Last Filed: 12/10/20 19:54> Narrative: This is a 75-year-old male smoker with history of coronary artery disease status post CABG, hypertension, dyslipidemia, iron deficiency anemia, peripheral arterial disease, and chronic obstructive pulmonary disease who presented to the emergency department earlier today with reports of chest pain for about the last 3 days. He describes a tightness or soreness in the left anterior chest which has occurred intermittently over the last couple of days although has been more frequent in the last 1 day. It seems to be a bit worse with activity. He gives no alleviating factors and admits that he has not tried uses nitroglycerin. He sees no pattern as to when this discomfort occurs. Associated symptoms include shortness of breath however he goes on to say that it is not unusual for him to be short of breath with day-to-day activities. He also reports orthopnea but goes on to say that has been occurring for ?quite a while? although worse over the past few days. He denies pleuritic pain, nausea, vomiting, and sweats. <Helen Reagan PA-C - Last Filed: 12/10/20 19:54> Review of Systems Review of Systems: Narrative: Twelve systems were reviewed with pertinent positives and negatives as per HPI. No fever, chills, or sweats. He denies recent cold and flu symptoms. He has a chronic, mild smoker's cough which is unchanged. He uses maintenance inhalers at home and will on occasion use his rescue inhaler when he wheezes. He does not have a nebulizer at home. He does get more short of breath at nighttime when lying flat but also thinks that it may be due to sinus congestion as well. Previously on Flonase but has not used for quite some time. Except as documented, all other systems were reviewed and are negative. <Helen Reagan PA-C - Last Filed: 12/10/20 19:54> [facility] Past Medical History Medical History: Medical History Anemia Benign colon polyp Chronic obstructive pulmonary disease Congestive heart failure Echocardiogram in March 2018 showed normal left ventricular systolic function and side with sigmoid hypertrophy of the septum and diastolic dysfunction with an EF of 60 to 65%. Coronary artery disease With history of CT. Status post 4 vessel CABG in 2000 with PELAEZ to LAD, SVG to RCA, radial to OM, and SVG to diagonal. All vessels were patent except for the SVG to diagonal which was occluded and 50% stenosis of the SVG to the RCA on cardiac catheterization done at [place] in 2015. Diverticulitis (~01/2018) Dyslipidemia Essential hypertension Gastroesophageal reflux disease History of ESBL Klebsiella pneumoniae infection Irritable bowel syndrome with diarrhea Kidney stones Obstructive sleep apnea Peripheral arterial disease With chronic right lower extremity claudication. Arteriogram done over a decade ago showed an occluded right femoral artery which has been treated with dual anti-platelet therapy. He has refused surgical intervention. Primary insomnia Pulmonary nodules Being monitored on serial CT scans. 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 Pagan, workup initiated for iron deficiency anemia. Syncope Loop recorder was unrevealing and was removed in 2016. Tobacco abuse <Helen Reagan PA-C - Last Filed: 12/10/20 19:54> Surgical History Surgical History: Surgical History History of cataract extraction History of cystoscopy History of four vessel coronary artery bypass graft (~2000) Cardiac catheterization at [place] in 2015 showed occluded SVG to diagonal, 50% stenosis of SVG to RCA, patent PELAEZ to LAD, and patent radial to OM
[2020-12-10 16:10] LABS: Troponin I 0.102 ng/mL (0.000-0.034)
--- NOTE | 2020-12-10 16:10 | ADMGEN ---
This patient, Atlu Fernando, was admitted to IMU Room 206-02. Patient/family oriented to hospital policies and general routines including ID bracelet, bed and alarms, visiting hours, pain management, procedures, bathroom and other care routines, personal items, smoking policy, room service/diet, and visiting hours. Information on how to activate the Rapid Response Team has been discussed. Patient/Family are encouraged to report perceived risks to care and to ask questions if they do not understand what they are told or what they should do.
--- NOTE | 2020-12-10 16:39 | PM.CNCAR ---
Assessment and Plan Assessment and plan (1) Acute non-ST elevation myocardial infarction (NSTEMI): Code(s): I21.4 - Non-ST elevation (NSTEMI) myocardial infarction Status: Acute Assessment and Plan: Symptoms are concerning for non-STEMI. Sounds as if he may have had an event 3 days ago but considering he still has residual chest pain at present, it is concerning for continued ischemia. After talking to him about risks benefits alternatives, he is agreeable to pursue coronary angiogram/graft angiogram to define his anatomy. Keep him NPO after midnight. In the meantime will initiate nitroglycerin 1 in topically Q 6 hours. Enoxaparin 1 milligram/kilogram subcu x1 now. Continue his other home drug regimen without change including aspirin, Plavix, statin, metoprolol, ARB (2) Coronary artery disease: Qualifiers: Coronary Disease-Associated Artery/Lesion type: viejas artery [place] vs. transplanted heart: viejas heart Associated angina: without angina Qualified Code(s): I25.10 - Atherosclerotic heart disease of viejas coronary artery without angina pectoris Code(s): I25.10 - Atherosclerotic heart disease of viejas coronary artery without angina pectoris Status: Acute Assessment and Plan: As detailed above. Known history of occluded SVG to the diagonal branch. 50% stenosis of a SVG to RCA which may be culprit artery/vessel at this point. Patent PELAEZ and previous radial artery grafts. See history above for previous details of last angiogram in 2016 (3) Tobacco abuse: Code(s): Z72.0 - Tobacco use Status: Acute Assessment and Plan: Ongoing. Counseling was performed (4) Peripheral arterial disease: Code(s): I73.9 - Peripheral vascular disease, unspecified Status: Acute Assessment and Plan: Right leg disease greater than left (5) Essential hypertension: Code(s): I10 - Essential (primary) hypertension Status: Acute Assessment and Plan: Above goal (6) CHF (congestive heart failure): Code(s): I50.9 - Heart failure, unspecified Status: Acute Assessment and Plan: Probably diastolic in etiology from ischemia. Cannot exclude significant systolic dysfunction either though. Will check a 2D echocardiogram with Doppler. 40 mg IV furosemide was given in the emergency department upon my recommendation and order History of Present Illness History of Present Illness Consult date/time: 12/10/20 16:39 Requesting physician: Yo Nolan DO Consult reason: chest pain and congestive heart failure Reason For Visit: chest pain,elevated troponin,chf Narrative: 12/10/2020 date of service History: Patient is a 75-year-old male with a longstanding history of coronary artery disease. He had a bypass in 2000. Last coronary angiogram was in 2015 which showed a patent SVG to the RCA but with a 50% narrowing in the mid vessel. Patent PELAEZ to the LAD, patent free arterial graft to OM a, occluded SVG to diagonal. Severe 3 vessel viejas disease with high-grade disease in the left main proximal LAD and occlusion of the mid RCA and circumflex. He presented to the hospital this morning after having chest pain tightness. He developed chest pain and tightness 3 days ago. His symptoms have been relatively persistent but did wax and wane over the next couple of days. Due to the chest pain as well as worsening shortness of breath he decided to come to the hospital for further evaluation. His troponins were elevated initially. His BNP is also significantly more elevated than at last evaluation. EKG shows new T-wave inversions inferiorly. He did have to take nitroglycerin x2 6-8 months ago which did relieve his chest pain. He did see Dr. Pino back in September. He is uncertain if he talked to him about his chest pain 6-8 months ago or not. He has been having worsening dyspnea with exertion as stated above. Shortness of breath will occur by
[2020-12-10] MEDS: ENOXAPARIN 80 MG/0.8 ML SYRINGE SUB-Q (18:04)
[2020-12-10] MEDS: NITROGLYCERIN OINTMENT 1 INCH DOSE TRANSDERM ×2 (18:04→23:59)
[2020-12-10 19:12] LABS: Troponin I 0.108 ng/mL (0.000-0.034)
[2020-12-10] MEDS: ALBUTEROL SULFATE NEB 2.5 MG/0.5 ML INH 5 MG INHALATION (21:02)
[2020-12-10] MEDS: IPRATROPIUM BR 0.02% INH SOLN 0.5 MG/2.5 ML VIAL INHALATION (21:03)
[2020-12-10] MEDS: FLUTICASONE PROPIONATE 0.05% NA SPR 16 GM BTL (*BKC) 1 SPRAY NASAL (21:25)
[2020-12-10] MEDS: TEMAZEPAM (*CRX) 15 MG CAPSULE 30 MG PO (21:33)
[2020-12-11] VITALS (41 sets, daily range): BP systolic 104–155; BP diastolic 55–112; PULSE 61–106; RESP 12–20; TEMP 36.6–37.1; O2SAT 91–99
--- NOTE | 2020-12-11 | ECHO_ITS ---
Patient Info Name: Atul Fernando Age: 75 years : 1945 Gender: Male Ht: 71 in Wt: 167 lbs BSA: 1.95 m2 HR: 78 bpm BP: 118 / 65 mmHg Heart Rhythm: Sinus Rhythm Technical Quality: Good Exam Date: 12/11/2020 8:45 AM Exam Location: [facility] Patient Status: Inpatient Admit Date: 12/10/2020 Staff Ordering Physician: Connor Hawkins MD Student Activities Director: Darshan Stevens, CALLI, RT Attending Provider: Nella Boo MD Referring Physician: Shruthi GARCIA; Exam Type: CA echo doppler color flow Study Info Indications I50.9 - Heart failure, unspecified Complete two-dimensional, color flow and Doppler transthoracic echocardiogram is performed. Strain analysis performed. Summary 1. Complete two-dimensional, color flow and Doppler transthoracic echocardiogram is performed. 2. Strain analysis performed. 3. Left ventricular chamber dimension is mildly enlarged. 4. Left ventricular systolic function is normal, estimated at 65-70%. 5. There is mildly increased left ventricular wall thickness. 6. The left ventricular diastolic function is grade I diastolic dysfunction. 7. Global longitudinal strain is normal at -19 %. 8. The basal inferior wall, mid inferior wall, basal inferoseptal, mid inferoseptal, basal inferolateral wall, and mid inferolateral wall are hypokinetic. 9. Left atrial chamber dimension is mildly enlarged. 10. There is moderate mitral valve regurgitation. Left Ventricle Left ventricular chamber dimension is mildly enlarged. Left ventricular systolic function is normal, estimated at 65-70%. There is mildly increased left ventricular wall thickness. The left ventricular diastolic function is grade I diastolic dysfunction. Global longitudinal strain is normal at -19 %. The basal inferior wall, mid inferior wall, basal inferoseptal, mid inferoseptal, basal inferolateral wall, and mid inferolateral wall are hypokinetic. All other lux appear normal. Right Ventricle Right ventricular chamber dimension is normal. Right ventricular systolic function is normal. Left Atria Left atrial chamber dimension is mildly enlarged. Right Atria Right atrial chamber dimension is normal. Atrial Septum Intact interatrial septum visualized by color flow imaging. Aortic Valve The aortic valve is trileaflet. There is mild aortic valve sclerosis. There is no aortic valve stenosis. There is trace aortic valve regurgitation. Pulmonic Valve The pulmonic valve is normal. There is no pulmonic valve stenosis. There is trace pulmonic regurgitation. Mitral Valve The mitral valve has anterior prolapse. There is no mitral valve stenosis. There is moderate mitral valve regurgitation. Tricuspid Valve The tricuspid valve leaflets are normal. There is no significant tricuspid valve stenosis. There is trace tricuspid valve regurgitation. Pericardium/Pleural The pericardium appears normal. There is trivial pericardial effusion. Inferior Vena Cava Normal inferior vena cava with >50% collapse upon inspiration consistent with normal right atrial pressure, 5 mmHg. Aorta The aortic root size at the sinus of Valsalva is normal. Left Ventricular Outflow Tract Name Value Normal LVOT 2D
[2020-12-11] MEDS: ALBUTEROL SULFATE NEB 2.5 MG/0.5 ML INH 5 MG INHALATION ×3 (02:12→19:57)
[2020-12-11] MEDS: IPRATROPIUM BR 0.02% INH SOLN 0.5 MG/2.5 ML VIAL INHALATION ×3 (02:12→19:57)
[2020-12-11 05:28] LABS: Basophils Percent Auto 0.6 % (0.2-1.2); Eosinophils Absolute Auto 0.2 K/mm3 (0-0.3); Eosinophils Percent Auto 2.5 % (0-4.4); Hematocrit 35.5 % (42.0-52.0); Immature Granulocyte Absolute 0.03 K/mm3 (0.00-0.031); Immature Granulocyte Percent A 0.4 % (0-0.5); Immature Platelet Fraction Pct 10.2 % (0.9-11.2); Lymphocytes Absolute Auto 1.03 K/mm3 (0.9-3.2); Mean Corpuscular Hemoglobin 27.1 pg (26-34); Mean Corpuscular Volume 87.4 fl (80-100); Mean Platelet Volume 12.2 fl (7.4-10.4); Monocytes Absolute Auto 0.8 K/mm3 (0.1-0.6); Monocytes Percent Auto 11.2 % (2.6-8.5); Neutrophils Absolute Auto 4.8 K/mm3 (1.3-6.7); Neutrophils Percent Auto 70.3 % (45.5-73.1); Platelet Count Result 134 k/mm3 (150-375); Red Blood Count 4.06 M/mm3 (4.6-6.20); Red Cell Distribution Width 18.4 % (11.5-14.5); White Blood Count 6.9 K/mm3 (4.5-10.0)
[2020-12-11] MEDS: NITROGLYCERIN OINTMENT 1 INCH DOSE TRANSDERM (05:30)
[2020-12-11 05:31] LABS: Anion Gap 7 mmol/L (8-16); Blood Urea Nitrogen 20 mg/dL (9-20); Calcium 8.6 mg/dL (8.4-10.2); Carbon Dioxide 31 mmol/L (22-30); Chloride 106 mmol/L (98-107); Estimated CRCL calculation 49 ml/min; Estimated Glomerular Filt Rate 59; Glucose 111 mg/dL (75-110); Magnesium 1.6 mg/dL (1.6-2.3); Potassium 3.7 mmol/L (3.4-5.0); Sodium 144 mmol/L (137-145)
[2020-12-11] MEDS: PANTOPRAZOLE 40 MG TABLET PO ×2 (08:13→17:19)
[2020-12-11] MEDS: FLUTICASONE PROPIONATE 0.05% NA SPR 16 GM BTL (*BKC) 1 SPRAY NASAL ×2 (08:14→21:45)
[2020-12-11] MEDS: FLUTICASONE/UMECLIDIN/VILANTER 100-62.5-25 MCG ELLIPTA 1 PUFF INHALATION (08:28)
--- NOTE | 2020-12-11 11:10 | WPDHPUPDATE1 ---
History and Physical Update Update Date/Time: 12/11/20 9 am History and Physical has been reviewed, including an updated exam of the patient. There are NO changes in the patient's condition. Risks, benefits, and alternatives have been discussed and questions answered. Patient agrees to proceed with procedure.
--- NOTE | 2020-12-11 11:10 | WPDMODSED ---
Moderate Sedation Note-Pt Data Patient Data Allergies Allergy/AdvReac Type Severity Reaction Status Date / Time levofloxacin Allergy Unknown PAIN IN Verified 11/10/20 12:57 PENIS Home Medications Medication Instructions Recorded Confirmed Type aspirin 81 mg tablet,delayed 81 mg PO QNOON 07/25/19 12/10/20 History release fluticasone fur. 100 mcg-umeclid 1 inhalation INHALATION DAILY 07/25/19 12/10/20 History 62.5 mcg-vilant 25 mcg inhalat.powder metoprolol succinate 50 mg 50 mg PO QNOON 07/25/19 12/10/20 History tablet,extended release 24 hr clopidogrel 75 mg PO QNOON 03/04/20 12/10/20 History ferrous sulfate 325 mg PO QNOON 05/02/20 12/10/20 History olmesartan 40 mg PO QNOON 05/02/20 12/10/20 History atorvastatin 80 mg tablet 80 mg PO QNOON #90 tablet 07/23/20 12/10/20 Rx omeprazole 20 mg capsule,delayed 20 mg PO DAILY #30 cap 10/07/20 12/10/20 Rx release albuterol sulfate [ProAir HFA] 2 inh INHALATION Q6-8H PRN 12/10/20 12/10/20 History sertraline 100 mg PO QNOON 12/10/20 12/10/20 History temazepam 30 mg PO HS 12/10/20 12/10/20 History Current Medications: Active Medications Albuterol (Albuterol Sulfate (*Sp) Aerosol 1 Puff) 2 puff INHALATION Q6-8H PRN PRN Reason: Shortness Of Breath Albuterol (Albuterol Sulfate Neb 2.5 Mg/0.5 Ml Inh) 5 mg INHALATION Q6HRT [facility] Last Admin: 12/11/20 07:26 Dose: 5 mg Documented by: Aspirin (Aspirin 81 Mg Enteric Tablet) 81 mg PO 1200 [facility] Atorvastatin Calcium (Atorvastatin 40 Mg Tablet) 80 mg PO 1200 [facility] Clopidogrel Bisulfate (Clopidogrel Bisulfate 75 Mg Tablet) 75 mg PO 1200 [facility] Ferrous Sulfate (Ferrous Sulfate 324 Mg Tablet) 324 mg PO 1200 [facility] Fluticasone Propionate (Fluticasone Propionate 0.05% Na Spr 16 Gm Btl (*Bkc)) 1 spray NASAL Q12HR [facility] Last Admin: 12/11/20 08:14 Dose: 1 spray Documented by: Fluticasone/Umeclidinium/Vilanterol (Fluticasone/Umeclidin/Vilanter 100-62.5-25 Mcg Ellipta) 1 puff INHALATION DAILYRT [facility] Last Admin: 12/11/20 08:28 Dose: 1 puff Documented by: Ipratropium [place] (Ipratropium Br 0.02% Inh Soln 0.5 Mg/2.5 Ml Vial) 0.5 mg INHALATION Q6HRT [facility] Last Admin: 12/11/20 07:26 Dose: 0.5 mg Documented by: Metoprolol Succinate (Metoprolol Succinate Ext Rel 50 Mg Tabcr) 50 mg PO 1200 [facility] Nitroglycerin (Nitroglycerin Ointment 1 Inch Dose) 1 inch TRANSDERM Q6HR [facility] Last Admin: 12/11/20 05:30 Dose: 1 inch Documented by: Olmesartan (Olmesartan Medoxomil 20 Mg Tablet) 40 mg PO 1200 [facility] Pantoprazole Sodium (Pantoprazole 40 Mg Tablet) 40 mg PO DAILY [facility] Stop: 01/10/21 09:01 Last Admin: 12/11/20 08:13 Dose: 40 mg Documented by: Sertraline HCl (Sertraline Hcl 50 Mg Tablet) 100 mg PO 1200 [facility] Temazepam (Temazepam (*Crx) 15 Mg Capsule) 30 mg PO HS [facility] Last Admin: 12/10/20 21:33 Dose: 30 mg Documented by: Sedation/Anesthesia: No previous sedation/anesthesia problems (including family history). [facility] Past Medical History Medical History Anemia Benign colon polyp Chronic obstructive pulmonary disease Congestive heart failure Echocardiogram in March 2018 showed normal left ventricular systolic function and side with sigmoid hypertrophy of the septum and diastolic dysfunction with an EF of 60 to 65%. Coronary artery disease With history of PR. Status post 4 vessel CABG in 2000 with PELAEZ to LAD, SVG to RCA, radial to OM, and SVG to diagonal. All vessels were patent except for the SVG to diagonal which was occluded and 50% stenosis of the SVG to the RCA on cardiac catheterization done at [place] in 2015. Diverticulitis (~01/2018) Dyslipidemia Essential hypertension Gastroesophageal reflux disease History of ESBL Klebsiella pneumoniae infection Irritable bowel syndrome with diarrhea Kidney stones Obstructive sleep apnea Peripheral arterial disease With chronic right lower extremity claudication. Arteriogram done over a decade ago showed an occluded right femoral a
--- NOTE | 2020-12-11 11:10 | WPDCARDPROC ---
Cardiac Cath Procedure Note Date of procedure:: 12/11/20 Performing physician:: Wei Ely MD date of service 12/11/2020 Indication:: chest pain, elevated troponins, ischemic changes on EKG Brief clinical history:: Patient is a 75-year-old male with a longstanding history of coronary artery disease. He had a bypass in 2000. Last coronary angiogram was in 2015 which showed a patent SVG to the RCA but with a 50% narrowing in the mid vessel. Patent PELAEZ to the LAD, patent free arterial graft to OM a, occluded SVG to diagonal. Severe 3 vessel alturas disease with high-grade disease in the left main proximal LAD and occlusion of the mid RCA and circumflex. He presented to the hospital this morning after having chest pain tightness. He developed chest pain and tightness 3 days ago. His symptoms have been relatively persistent but did wax and wane over the next couple of days. Due to the chest pain as well as worsening shortness of breath he decided to come to the hospital for further evaluation. His troponins were elevated initially. His BNP is also significantly more elevated than at last evaluation. EKG shows new T-wave inversions inferiorly. He did have to take nitroglycerin x2 6-8 months ago which did relieve his chest pain. He did see Dr. Pino back in September. He is uncertain if he talked to him about his chest pain 6-8 months ago or not. He has been having worsening dyspnea with exertion as stated above. Shortness of breath will occur by doing simple things as walking around the house and to and from the bathroom. He also describes worsening paroxysmal nocturnal dyspnea as well as orthopnea at 30? for the past year or so. He continues to smoke cigarettes. Procedure Procedure performed:: 1-Moderate sedation that started at 9:35 a.m.and ended at 10:58 a.m.using 4mg of Versed and 75mcg fentanyl. The registered nurse was jayshree mandujano 2-Selective left and right coronary angiogram. 3- selective coronary bypass graft angiogram. 4- selective left subclavian artery angiogram. 5-Left heart catheterization with measurement of LVEDP and measurement of gradient across aortic valve. 6- deployment of a drug-eluting stent Xience 3.5 x 23 to the proximal portion of the graft to RCA. was dilated using 3.5 x 15 noncompliant balloon under high pressure 20 mmhg for 25 seconds. 7- peripheral arterial angiogram was done the distal aorta, bilateral, external, internal iliacs and bilateral common femoral arteries. The reason why the peripheral angiogram was done because we could not add has the catheters from the right femoral artery and then we had to access the left femoral artery. Sedation/Medication given:: Moderate sedation. Access site:: Right common femoral artery. 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 Moderate sedation was given and the right groin was infiltrated using 1% lidocaine. Five [place] sheath was obtained using micropuncture needle and the modified Seldinger technique. at that time we could not advance a wire using JR4 catheter and using angled glide wire and wholly wire. then after that the left groin was infiltrated using 1% lidocaine and then 5 [place] sheath was obtained then the left common femoral artery using micropuncture needle and modified Seldinger technique. Selective left coronary angiogram was done using JL4 catheter with the tip of the catheter placed in the left main coronary artery. Selective right coronary angiogram was done using JR4 catheter with the tip of the catheter placed to the right coronary artery. after the JR4 catheter engaged the radial arterial graft to left circumflex artery and angiogram was done. we could not engage the graft to the RCA using the JR4 catheter. After that we took RCB and tried to engage the SVG to RCA without success eventually managed to engage it using AL1 diagnostic catheter and this an
--- NOTE | 2020-12-11 11:31 | ECG_ITS ---
Measurements Intervals [place] Rate: 72 P: 59 ID: [id number] QRS: 63 QRSD: 105 T: -70 QT: 457 QTc: 503 Interpretive Statements SINUS RHYTHM ATRIAL PREMATURE COMPLEX POSSIBLE LEFT ATRIAL ENLARGEMENT DELAYED PRECORDIAL R/S TRANSITION BORDERLINE ST-T WAVE ABNORMALITY- DIFFUSE LEADS BORDERLINE ECG Electronically Signed On 12-11-2020 11:54:36 CDT by Yuval Mcbride D.O.
[2020-12-11] MEDS: SODIUM CHLORIDE 0.9% IV 1,000 ML 125 ML IV CONT (13:12)
--- NOTE | 2020-12-11 14:16 | PCRCNOTE ---
pt off floor for procedure
--- NOTE | 2020-12-11 16:24 | PM.IMPN ---
Progress Note: A&P Additional Plan 12/11/2020 Patient seen status post cardiac catheterization with stenting of totally occluded SVG to RCA. Transfer back to cardiac floor beta-sandy aspirin Plavix statin anticipate discharge tomorrow after close observation. Time Spent With Patient Time with patient: 25 - 35 minutes Subjective Date/time seen: 12/11/20 16:24 Patient seen and post intervention suite. He is doing well we reviewed the procedure and stenting process he understands why he has had both groins accessed for his cardiac catheterization today all questions answered. His has been updated as well. Overall patient states that he is feeling well and very grateful that they were able to find the problem and intervene. Review of Systems Review of Systems: All systems reviewed & are unremarkable except as noted in HPI and below Exam Narrative: Exam Narrative: GEN: NAD, AAOx3, cooperative HEENT: NCAT, MMM, EOMI Neck: no JVD Heart: S1S2 RRR Lungs: CTA B/l Abd: soft, NT, ND, bowel sounds normoactive Ext: moves all, no cyanosis, no clubbing, no edema, bilateral groins and evaluated no ecchymosis no hematoma or other gross abnormalities catheterization sites closed with gauze and Tegaderm. Neuro: Alert and oriented x3, no focal neurological deficits, cranial nerves intact Psych: Mood and affect congruent Objective Data Vital Signs Vital Signs: Vital Signs - 24 hr 12/10/20 18:00 12/10/20 20:00 12/10/20 21:03 Temperature 97.4 F L Pulse Rate 65 70 64 Respiratory Rate 18 20 Blood Pressure 120/67 Pulse Oximetry 95 12/10/20 21:20 12/10/20 22:00 12/10/20 23:53 Temperature 98.6 F Pulse Rate 64 70 64 Respiratory Rate 20 20 Blood Pressure 107/70 Pulse Oximetry 96 12/11/20 00:00 12/11/20 01:41 12/11/20 02:13 Temperature Pulse Rate 68 70 70 Respiratory Rate 20 Blood Pressure Pulse Oximetry 12/11/20 04:00 12/11/20 05:51 12/11/20 07:27 Temperature 98.7 F Pulse Rate 69 106 H 67 Respiratory Rate 19 20 Blood Pressure 118/65 Pulse Oximetry 95 12/11/20 08:00 12/11/20 08:34 12/11/20 11:25 Temperature 97.9 F 98.3 F Pulse Rate 73 70 83 Respiratory Rate 12 20 16 Blood Pressure 127/62 137/78 Pulse Oximetry 97 98 12/11/20 11:30 12/11/20 11:45 12/11/20 12:00 Temperature Pulse Rate 69 68 65 Respiratory Rate 15 16 14 Blood Pressure 129/67 114/77 127/69 Pulse Oximetry 92 92 95 12/11/20 12:15 12/11/20 12:45 12/11/20 13:15 Temperature Pulse Rate 68 65 67 Respiratory Rate 17 13 15 Blood Pressure 120/60 104/60 127/74 Pulse Oximetry 96 95 94 12/11/20 13:20 12/11/20 13:25 12/11/20 13:30 Temperature Pulse Rate 65 71 71 Respiratory Rate 18 18 17 Blood Pressure 130/112 H 130/56 L 136/63 Pulse Oximetry 94 93 92 12/11/20 13:35 12/11/20 13:40 12/11/20 13:45 Temperature Pulse Rate 70 72 63 Respiratory Rate 18 18 15 Blood Pressure 144/72 H 119/85 122/86 Pulse Oximetry 96 98 94 12/11/20 14:00 12/11/20 14:15 12/11/20 14:30 Temperature Pulse Rate 68 64 69 Respiratory Rate 17 15 17 Blood Pressure 134/73 132/77 118/55 L Pulse Oximetry 91 93 92 12/11/20 14:40 12/11/20 14:47 12/11/20 14:50 Temperature Pulse Rate 69 71 70 Respiratory Rate 18 18 18 Blood Pressure 153/76 H 137/79 142/73 H Pulse Oximetry 95 96 95 12/11/20 15:05 12/11/20 15:20 12/11/20 15:35 Temperature Pulse Rate 67 67 69 Respiratory Rate 17 16 19 Blood Pressure 155/72 H 151/78 H 153/83 H Pulse Oximetry 95 95 91 Intake/Output Intake/Output: Intake & Output 12/08/20 12/09/20 12/10/20 12/11/20 23:59 23:59 23:59 23:59 Intake Total 240 Output Total 200 Balance 40 Meds/Results Medications: Active Medications Generic Name Dose Route Start Last Admin Trade Name Freq PRN Reason Stop Dose Admin Albuterol 2 puff 12/10/20 19:47 Albuterol Sulfate (*Sp) Aerosol 1 Puff INHALATION Q6-8H PRN Shortness Of Breath Albut
--- NOTE | 2020-12-11 16:43 | PC.NURSE ---
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
[2020-12-11] MEDS: ATORVASTATIN 40 MG TABLET 80 MG PO (17:16)
[2020-12-11] MEDS: OLMESARTAN MEDOXOMIL 20 MG TABLET 40 MG PO (17:17)
[2020-12-11] MEDS: SERTRALINE HCL 50 MG TABLET 100 MG PO (17:17)
[2020-12-11] MEDS: ASPIRIN 81 MG ENTERIC TABLET PO (17:19)
[2020-12-11] MEDS: FERROUS SULFATE 324 MG TABLET PO (17:19)
[2020-12-11] MEDS: CLOPIDOGREL BISULFATE 75 MG TABLET PO (17:20)
[2020-12-11] MEDS: METOPROLOL SUCCINATE EXT REL 50 MG TABCR PO (17:20)
[2020-12-11] MEDS: SODIUM CHLORIDE 0.9% IV 600 ML 100 ML IV CONT (17:27)
[2020-12-11] MEDS: TEMAZEPAM (*CRX) 15 MG CAPSULE 30 MG PO (21:44)
[2020-12-12] VITALS (14 sets, daily range): BP systolic 104–121; BP diastolic 41–63; PULSE 67–85; RESP 14–20; TEMP 36.1–36.6; O2SAT 94–97
[2020-12-12] MEDS: IPRATROPIUM BR 0.02% INH SOLN 0.5 MG/2.5 ML VIAL INHALATION ×3 (01:53→13:39)
[2020-12-12] MEDS: ALBUTEROL SULFATE NEB 2.5 MG/0.5 ML INH 5 MG INHALATION ×3 (01:53→13:39)
[2020-12-12 05:15] LABS: Basophils Percent Auto 0.3 % (0.2-1.2); Eosinophils Percent Auto 0.6 % (0-4.4); Hematocrit 31.9 % (42.0-52.0); Hemoglobin 9.8 g/dL (14.0-18.0); Immature Granulocyte Absolute 0.03 K/mm3 (0.00-0.031); Immature Granulocyte Percent A 0.5 % (0-0.5); Lymphocytes Absolute Auto 0.61 K/mm3 (0.9-3.2); Lymphocytes Percent Auto 9.3 % (18.3-44.2); Mean Corpuscular HGB Conc 30.7 g/dl (32-36); Mean Corpuscular Hemoglobin 26.9 pg (26-34); Mean Corpuscular Volume 87.6 fl (80-100); Mean Platelet Volume 12.2 fl (7.4-10.4); Monocytes Absolute Auto 0.7 K/mm3 (0.1-0.6); Monocytes Percent Auto 11.3 % (2.6-8.5); Neutrophils Absolute Auto 5.1 K/mm3 (1.3-6.7); Platelet Count Result 116 k/mm3 (150-375); Red Blood Count 3.64 M/mm3 (4.6-6.20); Red Cell Distribution Width 18.9 % (11.5-14.5); White Blood Count 6.6 K/mm3 (4.5-10.0)
[2020-12-12 05:31] LABS: Anion Gap 5 mmol/L (8-16); Blood Urea Nitrogen 18 mg/dL (9-20); Calcium 8.4 mg/dL (8.4-10.2); Carbon Dioxide 29 mmol/L (22-30); Chloride 110 mmol/L (98-107); Estimated CRCL calculation 49 ml/min; Estimated Glomerular Filt Rate 59; Glucose 115 mg/dL (75-110); Potassium 3.4 mmol/L (3.4-5.0); Sodium 144 mmol/L (137-145)
[2020-12-12] MEDS: FLUTICASONE/UMECLIDIN/VILANTER 100-62.5-25 MCG ELLIPTA 1 PUFF INHALATION (07:48)
--- NOTE | 2020-12-12 08:05 | P.CDI_ITS ---
CDI Query Clarification Request -CHF documented -BNP 3510 -12/11 ECHO summary: EF 65-70%, grade 1 diastolic dysfunction -Lasix 40mg IV given X 1 in the ED Please further specify type and acuity of CHF: * Diastolic *Acute * Systoic *Chronic * Both Diastolic and Systolic *Acute on Chronic * Unable to determine *Unable to determine <Ilene Escobar RN - Last Filed: 12/12/20 08:09> Chronic Diastolic CHF <Nella Boo MD - Last Filed: 12/24/20 14:01>
[2020-12-12] MEDS: FLUTICASONE PROPIONATE 0.05% NA SPR 16 GM BTL (*BKC) 1 SPRAY NASAL (09:09)
--- NOTE | 2020-12-12 12:57 | PM.DS ---
DS: Admitting Diagnosis Admitting Diagnosis Admitting Diagnosis: (1)Non-STEMI (non-ST elevated myocardial infarction): (2) Congestive heart failure: (3) Chronic obstructive pulmonary disease: (4) Tobacco abuse: (5) Coronary artery disease: (6) Essential hypertension: DS: Discharge Diagnosis Discharge Diagnosis (1) Non-STEMI (non-ST elevated myocardial infarction): Code(s): I21.4 - Non-ST elevation (NSTEMI) myocardial infarction Status: Acute (2) Acute non-ST elevation myocardial infarction (NSTEMI): Code(s): I21.4 - Non-ST elevation (NSTEMI) myocardial infarction Status: Acute (3) Coronary artery disease: Qualifiers: Coronary Disease-Associated Artery/Lesion type: [place] artery [place] vs. transplanted heart: [place] heart Associated angina: without angina Qualified Code(s): I25.10 - Atherosclerotic heart disease of [place] coronary artery without angina pectoris Code(s): I25.10 - Atherosclerotic heart disease of [place] coronary artery without angina pectoris Status: Acute (4) Peripheral arterial disease: Code(s): I73.9 - Peripheral vascular disease, unspecified Status: Acute (5) Essential hypertension: Code(s): I10 - Essential (primary) hypertension Status: Acute (6) Congestive heart failure: Code(s): I50.9 - Heart failure, unspecified Status: Acute DS: Summary Hospital Course Reason for hospitalization: ches pain Hospital Course: 75-year-old male with significant past medical history of coronary disease stenting brought to the emergency room with chief complaint of chest pain. He was found have an elevated troponin was subsequently taken to cardiac catheterization for non ST elevation [place]. Patient had successful stenting of totally occluded SVG to RCA. 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 Procedure was completed from the left groin. Post PCI patient did well he was monitored overnight and discharged home the following day in stable condition with indications to follow-up with his PCP and to be compliant with his aspirin, Plavix, metoprolol, atorvastatin in addition to his normal home medications. He was also encouraged to stop smoking throughout this hospitalization. Time spent discussing smoking cessation with patient: 3 to 10 minutes Status at Discharge Functional status at discharge: independent ambulation Overall status at discharge: patient is back to baseline Time Spent with Patient Time attestation: Total time spent providing and/or coordinating discharge services: Time spent: Greater than 30 minutes Exam Narrative: Exam Narrative: GEN: NAD, AAOx3, cooperative HEENT: NCAT, MMM, EOMI Neck: no JVD Lungs: Symmetric chest rise no distress aerating well Ext: moves all, no cyanosis, no clubbing, no edema Neuro: No focal neurological deficits appreciated cranial nerves intact DS: Data Data Completed and Pending Labs on day of discharge: Labs from last 24 hours 12/12/20 12/12/20 04:16 04:16 WBC 6.6 RBC 3.64 L Hgb 9.8 L Hct 31.9 L MCV 87.6 MCH 26.9 MCHC 30.7 L RDW 18.9 H Plt Count 116 L MPV 12.2 H Immature Gran % (Auto) 0.5 Neut % (Auto) 78.0 H Lymph % (Auto) 9.3 L [place] % (Auto) 11.3 H Eos % (Auto) 0.6 Baso % (Auto) 0.3 Lymph # (Auto) 0.61 L [place] # (Auto) 0.7 H Eos # (Auto) 0.0 Baso # (Auto) 0.0 Abs Immat Gran (auto) 0.03 Absolute Neuts (auto) 5.1 Absolute Nucleated RBC 0.0 Nucleated RBC % 0.0 Sodium 144 Potassium 3.4 Chloride 110 H Carbon Dioxide 29 Anion Gap 5 L BUN 18 Creatinine 1.20 Estim Creat Clear Calc 49 Estimated GFR 59 Glucose 115 H Calcium 8.4 Discharge Plan Discharge Attending physician on discharge: Nella Boo Consulting providers: Connor Hawkins Discharging Clinician: Nella Boo
[2020-12-12] MEDS: ASPIRIN 81 MG ENTERIC TABLET PO (12:58)
[2020-12-12] MEDS: SERTRALINE HCL 50 MG TABLET 100 MG PO (12:58)
[2020-12-12] MEDS: CLOPIDOGREL BISULFATE 75 MG TABLET PO (12:58)
[2020-12-12] MEDS: METOPROLOL SUCCINATE EXT REL 50 MG TABCR PO (12:58)
[2020-12-12] MEDS: FERROUS SULFATE 324 MG TABLET PO (12:58)
[2020-12-12] MEDS: ATORVASTATIN 40 MG TABLET 80 MG PO (12:58)
--- NOTE | 2020-12-12 13:33 | PM.PNCARD ---
Progress Note: A&P Assessment and Plan (1) Acute non-ST elevation myocardial infarction (NSTEMI): Code(s): I21.4 - Non-ST elevation (NSTEMI) myocardial infarction Status: Acute Assessment and Plan: Status post PCI to SVG to the RCA. Feeling fine. DC nitroglycerin paste. Continue his other home drug regimen without change including aspirin, Plavix, statin, metoprolol, ARB (2) Coronary artery disease: Qualifiers: Coronary Disease-Associated Artery/Lesion type: [place] artery [place] vs. transplanted heart: [place] heart Associated angina: without angina Qualified Code(s): I25.10 - Atherosclerotic heart disease of [place] coronary artery without angina pectoris Code(s): I25.10 - Atherosclerotic heart disease of [place] coronary artery without angina pectoris Status: Acute Assessment and Plan: As detailed above. Known history of occluded SVG to the diagonal branch. 50% stenosis of a SVG to RCA which may be culprit artery/vessel at this point. Patent PELAEZ and previous radial artery grafts. See history above for previous details of last angiogram in 2016 (3) Tobacco abuse: Code(s): Z72.0 - Tobacco use Status: Acute Assessment and Plan: Ongoing. Counseling was performed (4) Peripheral arterial disease: Code(s): I73.9 - Peripheral vascular disease, unspecified Status: Acute Assessment and Plan: Right leg disease greater than left (5) Essential hypertension: Code(s): I10 - Essential (primary) hypertension Status: Acute Assessment and Plan: Above goal (6) CHF (congestive heart failure): Code(s): I50.9 - Heart failure, unspecified Status: Acute Assessment and Plan: Probably diastolic in etiology from ischemia. Replace potassium 40 mg p.o. x1 before discharge. Okay for discharge from cardiac perspective. Follow up with Dr. Pino in 1-2 weeks Subjective Date/time seen: 12/12/20 13:33 Interval history: 75-year-old with non-STEMI shortness of breath Date of service 12/12/2020: He feels fine at this point. Feels much better status post PCI to the SVG to the a RCA. No significant groin pain. No chest pain or shortness of breath. Review of Systems Review of Systems: All systems reviewed & are unremarkable except as noted in HPI and below Constitutional: Constitutional: Denies excessive sweating, Denies headache(s) and Denies weakness Eyes: Eyes: Denies blurry vision ENT: Denies Normal hearing present, Denies headache(s) and Denies neck pain Cardiovascular: Cardiovascular: Reports chest pain, Reports dyspnea and Reports dyspnea on exertion Respiratory: Respiratory: Reports dyspnea and Reports dyspnea on exertion Gastrointestinal: Gastrointestinal: Denies abdominal pain Genitourinary: Genitourinary: Denies dysuria and Denies urinary frequency Musculoskeletal: Musculoskeletal: Denies neck pain Integumentary/Breasts: Skin/Breast: Denies dry skin Neurologic: Denies Normal hearing present, Denies headache(s) and Denies weakness Psychiatric: Psychiatric: Denies anxiety Endocrine: Endocrine: Denies excessive sweating Hematologic/Lymphatic: Hematologic/Lymphatic: Denies easy bleeding Allergic/Immunologic: Allergic/Immunologic: Denies GI upset with certain foods Exam Narrative: Exam Narrative: Alert, oriented. Appears to be in no acute distress and at stated age Const: General: comfortable and no acute distress HENMT: General nose exam: Normal nares present Eyes: Sclera: sclerae normal Neck: Neck: no JVD Carotids: bruit Chest: Other: No reproducible chest wall pain to palpation Resp: Auscultation: clear to auscultation bilaterally Cardio: Rate: regular rate Rhythm: regular rhythm Other: Bilateral groin sites are clean dry intact without significant bruit hematoma or ecchymosis GI: Inspection: normal to inspection Skin: General skin exam: normal color Neuro: Crania
[2020-12-12] MEDS: POTASSIUM CHLORIDE 20 MEQ TABLET 40 MEQ PO (14:20)
[2020-12-12] MEDS: OLMESARTAN MEDOXOMIL 20 MG TABLET 40 MG PO (14:20)
--- NOTE | 2020-12-16 11:55 | PCCPR ---
called to discuss CR with pt- states he is not interested at this time but will discuss at follow up with at [facility] on 01/02.
== END 2020-12-12 14:33 | disposition home or self-care (01) | DRG 247 ==
LOC: ANHED 14:02 → ANHIMU 14:44
PROVIDERS: Internal Medicine Cardiovascular Disease; Physician Assistant; Admitting Provider Hospitalist; Emergency Provider Emergency Medicine; PCP Internal Medicine; Visit Provider Hospitalist
PROC: 4A023N7 Measurement of Cardiac Sampling and Pressure, Left Heart, Percutaneous Approach (ICD-10-PCS; CPT 93452; principal; 2020-12-11 08:30)
PROC: 027034Z Dilation of Coronary Artery, One Artery with Drug-eluting Intraluminal Device, Percutaneous Approach (ICD-10-PCS; CPT 92937; 2020-12-11 08:30)
PROC: 027034Z Dilation of Coronary Artery, One Artery with Drug-eluting Intraluminal Device, Percutaneous Approach (ICD-10-PCS; CPT 75625; 2020-12-11 08:30)
DX: I21.4 Non-ST elevation (NSTEMI) myocardial infarction (principal); I50.32 Chronic diastolic (congestive) heart failure; I25.10 Atherosclerotic heart disease of native coronary artery without angina pectoris; I73.9 Peripheral vascular disease, unspecified; J44.9 Chronic obstructive pulmonary disease, unspecified; I11.0 Hypertensive heart disease with heart failure; E78.5 Hyperlipidemia, unspecified; K21.9 Gastro-esophageal reflux disease without esophagitis; D50.9 Iron deficiency anemia, unspecified; K58.0 Irritable bowel syndrome with diarrhea; G47.33 Obstructive sleep apnea (adult) (pediatric); R91.8 Other nonspecific abnormal finding of lung field; F17.210 Nicotine dependence, cigarettes, uncomplicated; I25.2 Old myocardial infarction; Z98.42 Cataract extraction status, left eye; Z98.41 Cataract extraction status, right eye; Z95.1 Presence of aortocoronary bypass graft; Z90.49 Acquired absence of other specified parts of digestive tract; Z85.828 Personal history of other malignant neoplasm of skin
CPT/HCPCS: 36140; 36415; 71045; 75625; 80048; 83735; 83880; 84443; 84484; 85025; 85055; 85610; 85730; 93005; 93306; 93458; 94640; 96361; 96372; 96374; 99285; A9270; C1725; C1769; C1874; C1887; C1894; C9604; G0378; J0461; J0583; J1644; J1650; J1940; J2250; J3010; J7030; J7040; J7120

== ENCOUNTER 2021-01-30 09:34 | Outpatient (CLI) | payer MEDICARE, SELFPAY ==
[2021-01-30 09:49] LABS: Basophils Percent Auto 0.7 % (0.2-1.2); Eosinophils Absolute Auto 0.3 K/mm3 (0-0.3); Eosinophils Percent Auto 4.5 % (0-4.4); Hematocrit 38.7 % (42.0-52.0); Immature Granulocyte Absolute 0.02 K/mm3 (0.00-0.031); Immature Granulocyte Percent A 0.3 % (0-0.5); Lymphocytes Absolute Auto 0.95 K/mm3 (0.9-3.2); Lymphocytes Percent Auto 15.7 % (18.3-44.2); Mean Corpuscular Hemoglobin 27.8 pg (26-34); Mean Corpuscular Volume 89.8 fl (80-100); Mean Platelet Volume 12.1 fl (7.4-10.4); Monocytes Absolute Auto 0.7 K/mm3 (0.1-0.6); Monocytes Percent Auto 10.7 % (2.6-8.5); Neutrophils Absolute Auto 4.1 K/mm3 (1.3-6.7); Neutrophils Percent Auto 68.1 % (45.5-73.1); Platelet Count Result 138 k/mm3 (150-375); Red Blood Count 4.31 M/mm3 (4.6-6.20); Red Cell Distribution Width 15.6 % (11.5-14.5); White Blood Count 6.1 K/mm3 (4.5-10.0)
[2021-01-30 10:06] LABS: Alanine Aminotransferase 49 U/L (4-50); Albumin Level 4.5 g/dL (3.5-5.1); Alkaline Phosphatase 95 U/L (38-126); Anion Gap 9 mmol/L (8-16); Aspartate Amino Transferase 89 U/L (17-59); Bilirubin,Total 0.6 mg/dL (0.2-1.3); Blood Urea Nitrogen 14 mg/dL (9-20); Calcium 9.4 mg/dL (8.4-10.2); Carbon Dioxide 27 mmol/L (22-30); Chloride 108 mmol/L (98-107); Estimated Glomerular Filt Rate > 60; Glucose 105 mg/dL (75-110); Potassium 4.6 mmol/L (3.4-5.0); Sodium 144 mmol/L (137-145)
[2021-01-30 11:13] LABS: Folic Acid 13.1 ng/mL (2.76->20)
[2021-01-30 11:37] LABS: Iron 37 ug/dL (49-181)
[2021-01-30 11:48] LABS: Percent Iron Saturation 9 % (20-50)
== END 2021-01-30 09:35 | disposition home or self-care (01) ==
PROVIDERS: PCP Internal Medicine; Visit Provider Internal Medicine
DX: D64.9 Anemia, unspecified (principal)
CPT/HCPCS: 36415; 80053; 82607; 82728; 82746; 83540; 83550; 85025

== ENCOUNTER 2021-03-04 12:30 | Outpatient (CLI) | payer MEDICARE, SELFPAY ==
--- NOTE | 2021-03-04 18:23 | WPDSIXMINUTE ---
Six Minute Walk Procedure Procedure Performed Pulmonary Stress Test (6 min walk) Six Minute Walk Six Minute Walk: DOS: 03/04/2021 REQUESTING: Dr Bartholomew REASON FOR TESTING: dyspnea SIX MINUTE WALK This test was conducted per ATS standards. This test was conducted on room air. Initial saturation was 95%. Pulse was 87 beats per minute. The patient walked for 6 minutes completing 1000 ft/ 304.8 m. The patient did not stop to rest. Saturation ranged from 90 3% to 97%. Maximum pulse was 114.. IMPRESSION: This 6 minute walk shows no need for supplemental oxygen with exertion. Distance walked is adequate.
== END 2021-03-04 12:31 | disposition home or self-care (01) ==
LOC: ANHPFT 12:31
PROVIDERS: PCP Internal Medicine; Visit Provider Internal Medicine
DX: R06.02 Shortness of breath (principal)
CPT/HCPCS: 94618

== ENCOUNTER 2021-03-31 08:53 | Outpatient (CLI) | payer MEDICARE, SELFPAY ==
--- NOTE | 2021-04-24 21:28 | WPDHOMESLEEP ---
Sleep Study - Home Unattended Date of Study: 03/31/21 Ordering Provider: Darrian Bartholomew MD Interpreting Provider: Shahrzad Castro MD Home Sleep Study Type: Apnea Link Air Height: 1.8 m Weight: 77.111 kg Body Mass Index: 23.7 Neck Circumference (inches): 17 Head Waters: 3 Reason for Sleep Study Hypersomnia * 09/13/2017 home sleep test showed an AHI of 3.2 with moderate snoring and mild oxygen desaturation Sleep History Atul Fernando is a 76-year-old man who frequently awakens from sleep feeling short of breath. He rarely awakens at night with heartburn, belching or coughing. He does not snore and others to not complained that he snores. He does not have trouble sleeping with a cold. He occasionally wakes up gasping for breath during the night. He occasionally has breathing problems at night observed by others. He rarely sweats excessively at night or notices his heart pounding or beating irregularly at night. He rarely falls asleep during the day. He does not fall asleep involuntarily or while driving. He does not have loss of muscle tone with strong emotion. He does not have daytime difficulties due to excessive sleepiness. He does not feel paralyzed on waking or falling asleep. He occasionally has vivid dreamlike scenes upon awakening or falling asleep. He does not feel afraid to go to sleep. He rarely has nightmares and rarely remembers his dreams. He occasionally has racing thoughts through his spine. He occasionally feels sad, depressed or anxious. He rarely has muscular tension. He does not notice parts of his body jerking. He frequently kicks at night. He rarely has crawling and aching feelings in his legs. He occasionally has leg pain during the night. He does not have morning jaw pain. He does not grind his teeth during sleep. He occasionally is bothered by pain during the day and occasionally awakened by pain during the night. He rarely wakes up feeling stiff in the morning, rarely wakes up with sore or achy muscles and occasionally wakes up with pain in the neck in spy. He has nightmares and stomach problems. Normal bedtime is midnight, taking an hour to fall asleep, typically waking 3 times during the night to urinate. He is able to return to sleep within 5 minutes. He wakes the morning at 6:00 a.m.. On the weekends he may stay awake until 1:00 a.m. however still wakes at 6:00 a.m.. He estimates getting 5 hours of sleep at night. He does not take naps in the afternoon or evening. A short nap may be refreshing. He is usually drowsy in the morning for 2 hours. He rarely awakens feeling refreshed. Habits: Tobacco half pack per day. Caffeine 3 servings a day. Alcohol 4 servings a day. No recreational drugs. [facility] Past Medical History Medical History Anemia Benign colon polyp Chronic obstructive pulmonary disease Congestive heart failure Echocardiogram in March 2018 showed normal left ventricular systolic function and side with sigmoid hypertrophy of the septum and diastolic dysfunction with an EF of 60 to 65%. Coronary artery disease With history of ME. Status post 4 vessel CABG in 2000 with PELAEZ to LAD, SVG to RCA, radial to OM, and SVG to diagonal. All vessels were patent except for the SVG to diagonal which was occluded and 50% stenosis of the SVG to the RCA on cardiac catheterization done at [place] in 2015. Diverticulitis (~01/2018) Dyslipidemia Essential hypertension Gastroesophageal reflux disease History of ESBL Klebsiella pneumoniae infection Irritable bowel syndrome with diarrhea Kidney stones Obstructive sleep apnea Peripheral arterial disease With chronic right lower extremity claudication. Arteriogram done over a decade ago showed an occluded right femoral artery which has been treated with dual anti-platelet therapy. He has refused surgical intervention. Primary insomnia Pulmonary nodules Being monitored on serial CT scans. Seasonal all
[2021-04-24 21:29] VITALS: BMI 23.7
== END 2021-04-01 11:36 | disposition home or self-care (01) ==
LOC: ANHCSM 08:54
PROVIDERS: PCP Internal Medicine; Visit Provider Internal Medicine
DX: G47.33 Obstructive sleep apnea (adult) (pediatric) (principal); R06.02 Shortness of breath; G47.10 Hypersomnia, unspecified
CPT/HCPCS: 95806

== ENCOUNTER 2021-05-11 14:28 | Outpatient (CLI) | payer MEDICARE, SELFPAY ==
[2021-05-11 15:20] LABS: Basophils Percent Auto 0.6 % (0.2-1.2); Eosinophils Absolute Auto 0.2 K/mm3 (0-0.3); Eosinophils Percent Auto 2.7 % (0-4.4); Hematocrit 40.9 % (42.0-52.0); Hemoglobin 13.7 g/dL (14.0-18.0); Immature Granulocyte Absolute 0.02 K/mm3 (0.00-0.031); Immature Granulocyte Percent A 0.3 % (0-0.5); Lymphocytes Absolute Auto 0.91 K/mm3 (0.9-3.2); Lymphocytes Percent Auto 14.3 % (18.3-44.2); Mean Corpuscular HGB Conc 33.5 g/dl (32-36); Mean Corpuscular Hemoglobin 31.1 pg (26-34); Mean Platelet Volume 12.5 fl (7.4-10.4); Monocytes Absolute Auto 0.6 K/mm3 (0.1-0.6); Monocytes Percent Auto 8.8 % (2.6-8.5); Neutrophils Absolute Auto 4.7 K/mm3 (1.3-6.7); Neutrophils Percent Auto 73.3 % (45.5-73.1); Platelet Count Result 103 k/mm3 (150-375); Red Cell Distribution Width 15.1 % (11.5-14.5); White Blood Count 6.4 K/mm3 (4.5-10.0)
[2021-05-11 15:29] LABS: Alanine Aminotransferase 50 U/L (4-50); Albumin Level 4.3 g/dL (3.5-5.1); Alkaline Phosphatase 184 U/L (38-126); Anion Gap 14 mmol/L (8-16); Aspartate Amino Transferase 58 U/L (17-59); Blood Urea Nitrogen 19 mg/dL (9-20); Calcium 8.7 mg/dL (8.4-10.2); Carbon Dioxide 23 mmol/L (22-30); Chloride 107 mmol/L (98-107); Cholesterol 140 mg/dL (0-200); Estimated Glomerular Filt Rate > 60; Glucose 91 mg/dL (65-110); HDL Direct 53 mg/dL; Potassium 4.1 mmol/L (3.4-5.0); Sodium 144 mmol/L (137-145); Triglycerides 119 mg/dL (<150)
[2021-05-11 15:40] LABS: LDL Cholesterol Direct 64 mg/dL
[2021-05-11 16:00] LABS: Prostate Specific Antigen 1.6 ng/mL (< OR = 4.0)
[2021-05-11 16:03] LABS: Creatinine Urine 225.3 mg/dL
[2021-05-11 16:08] LABS: Vitamin D 25 Hydroxy 44.1 ng/mL
[2021-05-11 16:08] LABS: Microalbumin Urine Random 29.2 mg/L (0-16.7)
== END 2021-05-11 14:29 | disposition home or self-care (01) ==
PROVIDERS: PCP Internal Medicine; Visit Provider Internal Medicine
DX: D64.9 Anemia, unspecified (principal); E55.9 Vitamin D deficiency, unspecified; I10 Essential (primary) hypertension; J44.9 Chronic obstructive pulmonary disease, unspecified; Z72.0 Tobacco use; E78.2 Mixed hyperlipidemia; Z12.5 Encounter for screening for malignant neoplasm of prostate
CPT/HCPCS: 36415; 80053; 80061; 82043; 82306; 84153; 84443; 85025; G0103

== ENCOUNTER 2021-05-14 08:26 | Outpatient (CLI) | payer MEDICARE, SELFPAY ==
--- NOTE | 2021-06-01 15:29 | WPDSLEEPSTUD ---
Sleep Study Date of Study: 05/14/21 <Jaci Scott DO - Last Filed: 06/01/21 16:39> Ordering Provider: Darrian Bartholomew MD <Jaci cSott - Last Filed: 06/01/21 16:39> Interpreting Physician: Jaci Scott DO <Jaci Scott - Last Filed: 06/01/21 16:39> Sleep Study Type: Split Polysomnogram <Jaci Scott - Last Filed: 06/01/21 16:39> Height: 1.8 m <Jaci Scott - Last Filed: 06/01/21 16:39> Weight: 77.111 kg <Jaci Scott DO - Last Filed: 06/01/21 16:39> Body Mass Index: 23.7 <Jaci Scott - Last Filed: 06/01/21 16:39> Neck Circumference (inches): 17 <Jaci Scott - Last Filed: 06/01/21 16:39> Fulda: 2 <Jaci Scott - Last Filed: 06/01/21 16:39> Reason for Sleep Study The patient had a home sleep test using [employer] on March 31, 2021 that showed an AHI of 6 with the majority of the apneas being central. <Jaci Scott - Last Filed: 06/01/21 16:39> Sleep History Atul Fernando is a 76-year-old man who frequently awakens from sleep feeling short of breath. He rarely awakens at night with heartburn, belching or coughing. He does not snore and others to not complained that he snores. He does not have trouble sleeping with a cold. He occasionally wakes up gasping for breath during the night. He occasionally has breathing problems at night observed by others. He rarely sweats excessively at night or notices his heart pounding or beating irregularly at night. He rarely falls asleep during the day. He does not fall asleep involuntarily or while driving. He does not have loss of muscle tone with strong emotion. He does not have daytime difficulties due to excessive sleepiness. He does not feel paralyzed on waking or falling asleep. He occasionally has vivid dreamlike scenes upon awakening or falling asleep. He does not feel afraid to go to sleep. He rarely has nightmares and rarely remembers his dreams. He occasionally has racing thoughts through his spine. He occasionally feels sad, depressed or anxious. He rarely has muscular tension. He does not notice parts of his body jerking. He frequently kicks at night. He rarely has crawling and aching feelings in his legs. He occasionally has leg pain during the night. He does not have morning jaw pain. He does not grind his teeth during sleep. He occasionally is bothered by pain during the day and occasionally awakened by pain during the night. He rarely wakes up feeling stiff in the morning, rarely wakes up with sore or achy muscles and occasionally wakes up with pain in the neck in spy. He has nightmares and stomach problems. Normal bedtime is midnight, taking an hour to fall asleep, typically waking 3 times during the night to urinate. He is able to return to sleep within 5 minutes. He wakes the morning at 6:00 a.m.. On the weekends he may stay awake until 1:00 a.m. however still wakes at 6:00 a.m.. He estimates getting 5 hours of sleep at night. He does not take naps in the afternoon or evening. A short nap may be refreshing. He is usually drowsy in the morning for 2 hours. He rarely awakens feeling refreshed. Habits: Tobacco half pack per day. Caffeine 3 servings a day. Alcohol 4 servings a day. No recreational drugs. <Jaci Scott DO - Last Filed: 06/01/21 16:39> [facility] Past Medical History Medical History: Medical History Anemia Benign colon polyp Chronic obstructive pulmonary disease Congestive heart failure Echocardiogram in March 2018 showed normal left ventricular systolic function and side with sigmoid hypertrophy of the septum and diastolic dysfunction with an EF of 60 to 65%. Coronary artery disease With history of [place]. Status post 4 vessel CABG in 2000 with PELAEZ to LAD, SVG to RCA, radial to OM, and SVG to diagonal. All
[2021-06-01 16:34] VITALS: BMI 23.7
== END 2021-05-15 06:15 | disposition home or self-care (01) ==
LOC: ANHCSM 08:27
PROVIDERS: PCP Internal Medicine; Visit Provider Internal Medicine
DX: G47.33 Obstructive sleep apnea (adult) (pediatric) (principal); G47.31 Primary central sleep apnea
CPT/HCPCS: 95811

== ENCOUNTER 2021-06-17 14:46 | Outpatient (CLI) | payer MEDICARE, SELFPAY ==
--- NOTE | ~2021-06-17 | XR_ITS ---
XR bone survey comp/metastic 06/17/2021 16:33 Indication: Abnormal secondary thrombocytopenia Procedure: Bone survey includes 33 images of the skull, spine, chest, abdomen and appendicular skelet on. Comparison: No prior studies for comparison. Findings: Status post median sternotomy for CABG. Osteopenia. There is atherosclerosis. There is mild compression deformity of multiple lumbar vertebra, likely chronic. There is extensive renal arterial calcification. There are cholecystectomy clips. Status post median sternotomy for CABG. There is adv anced multilevel cervical, thoracic and lumbar spondylosis. No focal lytic or blastic lesions. Impression: 1: No focal lytic or blastic lesions are identified in the visualized osseous structures to suggest m yeloma or metastatic disease. 2: Advanced multilevel spondylosis of the cervical, thoracic and lumbar spine. Mild multilevel compr ession deformities of the lumbar spine, likely chronic. 3: Extensive atherosclerosis with renal arterial calcifications. Reviewed, dictated and finalized at location A. Impression: 1: No focal lytic or blastic lesions are identified in the visualized osseous s tructures to suggest myeloma or metastatic disease. 2: Advanced multilevel spondylosis of the cervical, thoracic and lumbar spine. Mild multilevel compression deformities of the lumbar spine, likely chronic. 3: Extensive atherosclerosis with renal arterial calcifications.
--- NOTE | ~2021-06-17 | US_ITS ---
US abdomen complete EXAMINATION: US Abdomen Complete INDICATION: Secondary thrombocytopenia. PROCEDURE: Realtime High Resolution abdomen ultrasound. COMPARISON: CT dated 03/19/2020 FINDINGS: Gallbladder is surgically absent. Common bile duct measures 7 mm. Liver echotexture within normal limits without focal mass. Pancreas within normal limits. Pancreati c tail is obscured by bowel gas. Spleen is unremarkeable measuring 11.8 cm. Renal echotexture is wit hin normal limits bilaterally without hydronephrosis, contour deforming mass or renal stone. Right ki dney measures 9.4 cm. Left kidney measures 9.7 cm. There is atherosclerosis of the abdominal aorta without aneurysm. Mild ectasia of the distal abdomina l aorta measuring 2.2 cm. IVC unremarkable.. Portal vein is patent. No sonographic Stevens's sign daniel cated by the technologist. IMPRESSION: 1: Unremarkable abdominal ultrasound. Reviewed, dictated and finalized at location A.
[2021-06-17 17:10] LABS: Basophils Percent Auto 0.5 % (0.2-1.2); Eosinophils Absolute Auto 0.2 K/mm3 (0-0.3); Eosinophils Percent Auto 2.5 % (0-4.4); Hematocrit 43.8 % (42.0-52.0); Hemoglobin 14.5 g/dL (14.0-18.0); Immature Granulocyte Absolute 0.02 K/mm3 (0.00-0.031); Immature Granulocyte Percent A 0.3 % (0-0.5); Immature Platelet Fraction Pct 10.5 % (0.9-11.2); Lymphocytes Absolute Auto 0.92 K/mm3 (0.9-3.2); Lymphocytes Percent Auto 11.7 % (18.3-44.2); Mean Corpuscular HGB Conc 33.1 g/dl (32-36); Mean Corpuscular Hemoglobin 31.5 pg (26-34); Mean Platelet Volume 12.1 fl (7.4-10.4); Monocytes Absolute Auto 0.6 K/mm3 (0.1-0.6); Monocytes Percent Auto 8.1 % (2.6-8.5); Neutrophils Absolute Auto 6.1 K/mm3 (1.3-6.7); Neutrophils Percent Auto 76.9 % (45.5-73.1); Platelet Count Result 113 k/mm3 (150-375); Red Blood Count 4.61 M/mm3 (4.6-6.20); Red Cell Distribution Width 13.6 % (11.5-14.5); White Blood Count 7.9 K/mm3 (4.5-10.0)
[2021-06-17 17:23] LABS: Alanine Aminotransferase 62 U/L (4-50); Albumin Level 4.5 g/dL (3.5-5.1); Alkaline Phosphatase 121 U/L (38-126); Anion Gap 10 mmol/L (8-16); Aspartate Amino Transferase 83 U/L (17-59); Blood Urea Nitrogen 19 mg/dL (9-20); Calcium 9.4 mg/dL (8.4-10.2); Carbon Dioxide 27 mmol/L (22-30); Chloride 106 mmol/L (98-107); Estimated Glomerular Filt Rate > 60; Glucose 115 mg/dL (65-110); Potassium 4.6 mmol/L (3.4-5.0); Sodium 143 mmol/L (137-145)
[2021-06-17 18:10] LABS: Iron 67 ug/dL (49-181)
[2021-06-17 18:19] LABS: Percent Iron Saturation 18 % (20-50)
[2021-06-17 18:29] LABS: Folic Acid 14.6 ng/mL (2.76->20)
[2021-06-20 23:13] LABS: Platelet Antibody, Direct IgG NEGATIVE (NEGATIVE)
== END 2021-06-17 14:47 | disposition home or self-care (01) ==
PROVIDERS: PCP Internal Medicine; Visit Provider Internal Medicine Hematology & Oncology
DX: D69.59 Other secondary thrombocytopenia (principal); R74.8 Abnormal levels of other serum enzymes; M47.892 Other spondylosis, cervical region; M47.894 Other spondylosis, thoracic region; M47.896 Other spondylosis, lumbar region; I70.0 Atherosclerosis of aorta
CPT/HCPCS: 36415; 76700; 77075; 80053; 82607; 82728; 82746; 83540; 83550; 85025; 85055; 86023

== ENCOUNTER 2021-07-14 08:54 | Outpatient (CLI) | payer MEDICARE, SELFPAY ==
--- NOTE | ~2021-07-14 | DEXA_ITS ---
Bone Density Report Name: Atul Fernando Age: 76 Sex: Male Ethnicity: White Date of : 1945 Indication: height loss; postmenopausal Referring Provider: Darrian Bartholomew Study: Bone densitometry was performed. Exam Date: July 14, 2021 Accession number: [id number] Bone Density: Region BMD T-score Z-score Classification AP Spine (L1-L4) 1.072 -0.2 0.9 Normal Femoral Neck (Left) 0.512 -3.1 -1.6 Osteoporosis Total Hip (Left) 0.776 -1.7 -0.7 Osteopenia Total Hip Bilateral Avg 0.769 -1.8 -0.8 Osteopenia Femoral Neck (Right) 0.577 -2.6 -1.1 Osteoporosis Total Hip (Right) 0.760 -1.8 -0.8 Osteopenia World Health Organization criteria for BMD impression classify patients as: Normal (T-score at or above -1.0), Osteopenia (T-score between -1.0 and -2.5), or Osteoporosis (T-score at or below -2.5). 10-year Fracture Risk: FRAX not reported because: Some T-score for Spine Total or Hip Total or Femoral Neck at or below -2.5 Clinical Information Provided by Patient: Smokes Patient maximum height was 72 No regular weight bearing exercise Impression: The patient has osteoporosis, based on the Left Femoral Neck T-score. The patient has risk factors, including: smoking. Discussion: INCREASED RISK OF FRACTURE. BONE DENSITY IS UNDESIRABLY LOW AT ONE OR MORE SKELETAL SITES, CONSISTENT WITH OSTEOPOROSIS. This patient's lowest T-score meets the World Health Organization's (WHO) criteria for osteoporosis at one or more sites (T-score -2.5 or below). In untreated patients, the risk of osteoporotic fracture increases approximately two-fold for each 1.0 SD decrease in T-score. Low bone density is not the only risk factor for fracture; also consider factors such as patient's age, frailty or poor health, risk of falling, risk of injury, previous osteoporotic fracture, family history of osteoporosis, cigarette smoking, low body weight, etc. Not everyone with low bone mineral density has osteoporosis; osteomalacia and other metabolic bone disorders should also be considered. Patients who have osteoporosis should be evaluated for specific diseases and conditions (secondary causes) that may cause or contribute to bone loss. The National Osteoporosis Foundation (NOF) recommends pharmacologic intervention for men with BMD at this level (a T-score of -2.5 or below). The patient should follow a healthful lifestyle (good nutrition with adequate calcium and vitamin D, and appropriate weight-bearing exercise). Follow-Up: Consider repeating this study in 2 years to reassess this patient's status, or sooner if there is some new clinical indication. Reported by: [facility] on 07/14/2021 9:20:00 AM. Reviewed, dictated and finalized at location AGia ROSENBERG
== END 2021-07-14 08:55 | disposition home or self-care (01) ==
LOC: ANHIMG 08:55
PROVIDERS: PCP Internal Medicine; Visit Provider Internal Medicine
DX: M81.0 Age-related osteoporosis without current pathological fracture (principal); M85.851 Other specified disorders of bone density and structure, right thigh; M85.852 Other specified disorders of bone density and structure, left thigh
CPT/HCPCS: 77080

== ENCOUNTER 2021-08-20 08:11 | Emergency (ER) | payer MEDICARE, SELFPAY ==
--- NOTE | ~2021-08-20 | XR_ITS ---
EXAMINATION: XR chest 1V portable DATE: 08/20/2021 08:38 INDICATION: Chest pain. TECHNIQUE: A single frontal view of the chest was obtained. COMPARISON: Chest single view 12/10/2020, CT abdomen and pelvis 03/19/2020 FINDINGS: There are mild airspace opacities in right lower lung zone and left mid and lower lung zone s. No pleural effusion or pneumothorax. The heart size is normal. Pericardial calcifications are note d, consistent with calcific pericarditis. Median sternotomy wires and mediastinal surgical clips are seen, likely from prior coronary artery bypass grafting. There is eventration of anterior right hemid iaphragm. IMPRESSION: 1. Mild airspace opacities in right lower lung zone and left mid and lower lung zones, consistent wit h atelectasis versus pneumonia. 2. Calcific pericarditis. Reviewed, dictated and finalized at location B. ICAL EDUCATION ACADEMIC COORDINATOR IMPRESSION: 1. Mild airspace opacities in right lower lung zone and left mid and lower lung zones, consistent with atelectasis versus pneumonia. 2. Calcific pericarditis.
[2021-08-20 08:18] VITALS: BP 140/73; PULSE 73; RESP 16; TEMP 37.2; O2SAT 95
--- NOTE | 2021-08-20 08:24 | ECG_ITS ---
Measurements Intervals [place] Rate: 76 P: -66 ME: 181 QRS: -31 QRSD: 93 T: -34 QT: 394 QTc: 445 Interpretive Statements ECTOPIC ATRIAL RHYTHM LEFT AXIS DEVIATION BORDERLINE R WAVE PROGRESSION, ANTERIOR LEADS BORDERLINE T WAVE ABNORMALITY- INFERIOR LEADS ABNORMAL ECG Electronically Signed On 08-24-2021 16:08:34 MEDICAL POLICY SPECIALIST by Yuval Mcbride D.O.
[2021-08-20 08:43] LABS: Basophils Percent Auto 0.4 % (0.2-1.2); Eosinophils Absolute Auto 0.1 K/mm3 (0-0.3); Eosinophils Percent Auto 1.3 % (0-4.4); Hematocrit 39.3 % (42.0-52.0); Hemoglobin 13.3 g/dL (14.0-18.0); Immature Granulocyte Absolute 0.06 K/mm3 (0.00-0.031); Immature Granulocyte Percent A 0.6 % (0-0.5); Lymphocytes Absolute Auto 0.56 K/mm3 (0.9-3.2); Lymphocytes Percent Auto 5.8 % (18.3-44.2); Mean Corpuscular HGB Conc 33.8 g/dl (32-36); Mean Corpuscular Hemoglobin 31.2 pg (26-34); Mean Corpuscular Volume 92.3 fl (80-100); Monocytes Absolute Auto 0.9 K/mm3 (0.1-0.6); Monocytes Percent Auto 9.3 % (2.6-8.5); Neutrophils Absolute Auto 7.9 K/mm3 (1.3-6.7); Neutrophils Percent Auto 82.6 % (45.5-73.1); Platelet Count Result 119 k/mm3 (150-375); Red Blood Count 4.26 M/mm3 (4.6-6.20); Red Cell Distribution Width 13.2 % (11.5-14.5); White Blood Count 9.6 K/mm3 (4.5-10.0)
[2021-08-20 08:54] LABS: Alanine Aminotransferase 81 U/L (4-50); Alkaline Phosphatase 256 U/L (38-126); Anion Gap 10 mmol/L (8-16); Aspartate Amino Transferase 111 U/L (17-59); Bilirubin,Total 1.1 mg/dL (0.2-1.3); Blood Urea Nitrogen 23 mg/dL (9-20); Calcium 8.2 mg/dL (8.4-10.2); Carbon Dioxide 23 mmol/L (22-30); Chloride 107 mmol/L (98-107); Estimated CRCL calculation 57 ml/min; Estimated Glomerular Filt Rate > 60; Glucose 121 mg/dL (65-110); Sodium 140 mmol/L (137-145)
[2021-08-20 08:58] LABS: INR 1.1; Prothrombin Time 14.2 Seconds (11.1-14.7)
[2021-08-20 09:12] LABS: Troponin I < 0.012 ng/mL (0.000-0.034)
[2021-08-20 11:21] VITALS: PULSE 65; RESP 20; O2SAT 97
[2021-08-20 11:50] LABS: Troponin I < 0.012 ng/mL (0.000-0.034)
--- NOTE | 2021-08-20 13:11 | ED.CHESTPAIN ---
HPI - Chest Pain General Chief Complaint: Chest Pain Stated Complaint: chest pressure Time Seen by Provider: 08/20/21 08:19 Source: patient Mode of arrival: EMS Limitations: no limitations History of Present Illness HPI narrative: 76-year-old with a history of hypertension, CAD s/p CABG, multiple cardiac stents, osteoporosis here with complaints of chest pain and neck pain. Patient states that he has been having neck pain for last several days woke up in the middle of the night around 3 AM with severe pain in the neck which radiated to his left side of the chest. He presently denies having any pain. He states every time he moves his neck he gets pain in his left side of his chest. He denies shortness of breath. No history of nausea or vomiting. States he has taken his [place] last night which helped with the pain. MD complaint: chest pain Pertinent past history: coronary artery disease Onset (ago): hour(s) (5) Timing of current episode: now resolved Onset: other (With movement of his neck) Pain location: left chest Pain radiation: none Severity: moderate Quality: aching Related Data Home Medications Medication Instructions Recorded Confirmed metoprolol succinate 50 mg 50 mg PO QNOON 07/25/19 07/21/21 tablet,extended release 24 hr clopidogrel 75 mg PO QNOON 03/04/20 07/21/21 ferrous sulfate 325 mg PO QNOON 05/02/20 07/21/21 olmesartan 40 mg PO QNOON 05/02/20 07/21/21 albuterol sulfate [ProAir HFA] 2 inh INHALATION Q6-8H PRN 12/10/20 07/21/21 multivitamin 1 tablet PO DAILY 05/15/21 07/21/21 nitroglycerin 0.3 mg sublingual 0.3 mg SUBLINGUAL Q5M PRN 05/15/21 07/21/21 tablet temazepam 30 mg capsule 30 mg PO QHS PRN 05/15/21 07/21/21 [id number]-[id number]-[id number] 1 inh INHALATION DAILY 08/20/21 [Trelegy Ellipta] Allergies Allergy/AdvReac Type Severity Reaction Status Date / Time levofloxacin Allergy Unknown PAIN IN Verified 07/21/21 10:01 PENIS Review of Systems Review of Systems: All systems reviewed & are unremarkable except as noted in HPI and below Constitutional: Constitutional: Reports no additional constitutional complaints Eyes: Eyes: Reports no additional eye complaints ENT: Reports system reviewed and no additional complaints, except as documented Cardiovascular: Cardiovascular: Reports as per HPI and Reports no additional cardiovascular complaints Respiratory: Respiratory: Reports no additional respiratory complaints Gastrointestinal: Gastrointestinal: Reports no additional gastrointestinal complaints Musculoskeletal: Musculoskeletal: Reports as per HPI Neurologic: Reports system reviewed and no additional complaints, except as documented [facility] Past Medical History Medical History Anemia Benign colon polyp Chronic obstructive pulmonary disease Congestive heart failure Echocardiogram in March 2018 showed normal left ventricular systolic function and side with sigmoid hypertrophy of the septum and diastolic dysfunction with an EF of 60 to 65%. Coronary artery disease With history of [place]. Status post 4 vessel CABG in 2000 with PELAEZ to LAD, SVG to RCA, radial to OM, and SVG to diagonal. All vessels were patent except for the SVG to diagonal which was occluded and 50% stenosis of the SVG to the RCA on cardiac catheterization done at [facility] in 2015. Diverticulitis (~01/2018) Dyslipidemia Essential hypertension Gastroesophageal reflux disease History of ESBL Klebsiella pneumoniae infection History of tobacco abuse Irritable bowel syndrome with diarrhea Kidney stones Obstructive sleep apnea Peripheral arterial disease With chronic right lower extremity claudication. Arteriogram done over a decade ago showed an occluded right femoral artery which has been treated with dual anti-platelet therapy. He has refused surgical intervention. Primary insomnia Pulmonary nodules Being monitored on serial CT scans. Seasonal allergies Small bowel ar
[2021-08-20 13:18] VITALS: BP 143/88; PULSE 69; RESP 16; O2SAT 98
== END 2021-08-20 13:25 | disposition home or self-care (01) ==
PROVIDERS: Emergency Provider Family Medicine; PCP Internal Medicine
DX: R07.9 Chest pain, unspecified (principal); I25.10 Atherosclerotic heart disease of native coronary artery without angina pectoris; Z95.1 Presence of aortocoronary bypass graft; Z95.5 Presence of coronary angioplasty implant and graft; I50.9 Heart failure, unspecified; I11.0 Hypertensive heart disease with heart failure; E78.5 Hyperlipidemia, unspecified; J44.9 Chronic obstructive pulmonary disease, unspecified; D64.9 Anemia, unspecified; K21.9 Gastro-esophageal reflux disease without esophagitis; K58.0 Irritable bowel syndrome with diarrhea; G47.33 Obstructive sleep apnea (adult) (pediatric); I73.9 Peripheral vascular disease, unspecified; Z86.010 Personal history of colon polyps; Z87.442 Personal history of urinary calculi; Z98.49 Cataract extraction status, unspecified eye; F17.210 Nicotine dependence, cigarettes, uncomplicated; R94.31 Abnormal electrocardiogram [ECG] [EKG]; I31.9 Disease of pericardium, unspecified; R91.8 Other nonspecific abnormal finding of lung field
CPT/HCPCS: 36415; 71045; 80053; 84484; 85025; 85610; 93005; 99284

== ENCOUNTER 2021-09-15 10:24 | Outpatient (CLI) | payer MEDICARE, SELFPAY ==
[2021-09-15 10:56] LABS: Alanine Aminotransferase 33 U/L (4-50); Albumin Level 4.2 g/dL (3.5-5.1); Alkaline Phosphatase 181 U/L (38-126); Anion Gap 10 mmol/L (8-16); Aspartate Amino Transferase 46 U/L (17-59); Bilirubin,Total 0.4 mg/dL (0.2-1.3); Blood Urea Nitrogen 19 mg/dL (9-20); Calcium 8.6 mg/dL (8.4-10.2); Carbon Dioxide 26 mmol/L (22-30); Chloride 108 mmol/L (98-107); Estimated Glomerular Filt Rate > 60; Glucose 121 mg/dL (65-110); Potassium 4.5 mmol/L (3.4-5.0); Sodium 144 mmol/L (137-145)
== END 2021-09-15 10:25 | disposition home or self-care (01) ==
PROVIDERS: PCP Internal Medicine; Visit Provider Internal Medicine
DX: R79.89 Other specified abnormal findings of blood chemistry (principal)
CPT/HCPCS: 36415; 80053

== ENCOUNTER 2022-01-15 12:13 | Outpatient (CLI) | payer MEDICARE, SELFPAY ==
[2022-01-15 12:38] LABS: Basophils Percent Auto 0.5 % (0.2-1.2); Eosinophils Absolute Auto 0.2 K/mm3 (0-0.3); Eosinophils Percent Auto 3.8 % (0-4.4); Hematocrit 40.2 % (42.0-52.0); Hemoglobin 13.2 g/dL (14.0-18.0); Immature Granulocyte Absolute 0.02 K/mm3 (0.00-0.031); Immature Granulocyte Percent A 0.3 % (0-0.5); Lymphocytes Absolute Auto 0.92 K/mm3 (0.9-3.2); Lymphocytes Percent Auto 15.2 % (18.3-44.2); Mean Corpuscular HGB Conc 32.8 g/dl (32-36); Mean Corpuscular Hemoglobin 29.9 pg (26-34); Mean Platelet Volume 11.5 fl (7.4-10.4); Monocytes Absolute Auto 0.6 K/mm3 (0.1-0.6); Monocytes Percent Auto 10.4 % (2.6-8.5); Neutrophils Absolute Auto 4.2 K/mm3 (1.3-6.7); Neutrophils Percent Auto 69.8 % (45.5-73.1); Platelet Count Result 157 k/mm3 (150-375); Red Blood Count 4.42 M/mm3 (4.6-6.20); Red Cell Distribution Width 15.3 % (11.5-14.5); White Blood Count 6.1 K/mm3 (4.5-10.0)
[2022-01-15 12:40] LABS: Blood Urea Nitrogen 16 mg/dL (8-26); Carbon Dioxide 26 mmol/L (22-30); Chloride 105 mmol/L (98-109); Estimated Glomerular Filt Rate > 60; Glucose 105 mg/dL (70-105); Ionized Calcium (POC) 1.15 mmol/L (1.11-1.31); Potassium 4.2 mmol/L (3.5-4.9); Sodium 142 mmol/L (138-146)
[2022-01-15 15:02] LABS: Alanine Aminotransferase 44 U/L (6-50); Albumin Level 4.1 g/dL (3.5-5.1); Alkaline Phosphatase 117 U/L (38-126); Anion Gap 5 mmol/L (8-16); Aspartate Amino Transferase 65 U/L (17-59); Bilirubin,Total 0.4 mg/dL (0.2-1.3); Blood Urea Nitrogen 17 mg/dL (9-20); Calcium 8.8 mg/dL (8.4-10.2); Carbon Dioxide 26 mmol/L (22-30); Chloride 109 mmol/L (98-107); Estimated Glomerular Filt Rate > 60; Glucose 105 mg/dL (65-110); Potassium 4.2 mmol/L (3.4-5.0); Sodium 140 mmol/L (137-145)
== END 2022-01-15 12:14 | disposition home or self-care (01) ==
LOC: ANHLAB 12:14
PROVIDERS: PCP Internal Medicine; Visit Provider Internal Medicine Hematology & Oncology
DX: D69.59 Other secondary thrombocytopenia (principal); D69.9 Hemorrhagic condition, unspecified
CPT/HCPCS: 36415; 80047; 80053; 85025

== ENCOUNTER 2022-03-24 16:25 | Outpatient (CLI) | payer MEDICARE, SELFPAY ==
--- NOTE | ~2022-03-24 | US_ITS ---
EXAMINATION: US carotid duplex BI DATE: 03/24/2022 17:07 INDICATION: Bilateral carotid stenosis. TECHNIQUE: Grayscale, color Doppler, and pulsed Doppler images of the cervical carotid arteries were obtained. The degree of vessel stenosis is placed in one of the following categories: normal, <50%, 5 0-69%, >=70% but less than near-occlusion, near-occlusion, or total occlusion. Note that percent sten osis relative to normal distal artery lumen diameter is indirectly measured from velocity measurement s as described by Aram, et al. Radiology 2003; 229:340-346. COMPARISON: None. FINDINGS: RIGHT: The right common carotid artery (CCA) peak systolic velocity (PSV) is 64 cm/s. The right internal car otid artery (ICA) PSV is 100 cm/s. The right ICA end-diastolic velocity (EDV) is 29 cm/s. The right I CA/CCA PSV ratio is 1.6. Grayscale and color Doppler images yield an estimate of <50% diameter reduct ion from plaque in the ICA. The external carotid artery (ECA) PSV is 83 cm/s. There is antegrade flow in the right vertebral artery. LEFT: The left CCA PSV is 56 cm/s. The left ICA PSV is 108 cm/s. The left ICA EDV is 32 cm/s. The left ICA/ CCA PSV ratio is 1.9. Grayscale and color Doppler images yield an estimate of <50% diameter reduction from plaque in the ICA. The ECA PSV is 115 cm/s. There is antegrade flow in the left vertebral arter y. IMPRESSION: 1. <50% stenosis in the right internal carotid artery. 2. <50% stenosis in the left internal carotid artery. Reviewed, dictated and finalized at location A.
== END 2022-03-24 16:26 | disposition home or self-care (01) ==
LOC: ANHIMG 16:25
PROVIDERS: PCP Internal Medicine; Visit Provider Internal Medicine Cardiovascular Disease
DX: I65.23 Occlusion and stenosis of bilateral carotid arteries (principal)
CPT/HCPCS: 93880

== ENCOUNTER 2022-08-06 14:49 | Outpatient (CLI) | payer MEDICARE, SELFPAY ==
[2022-08-06 15:59] LABS: Alanine Aminotransferase 50 U/L (6-50); Albumin Level 4.5 g/dL (3.5-5.1); Alkaline Phosphatase 150 U/L (38-126); Anion Gap 8 mmol/L (8-16); Aspartate Amino Transferase 70 U/L (17-59); Blood Urea Nitrogen 22 mg/dL (9-20); Calcium 9.2 mg/dL (8.4-10.2); Carbon Dioxide 28 mmol/L (22-30); Chloride 105 mmol/L (98-107); Cholesterol 114 mg/dL (0-200); Estimated Glomerular Filt Rate > 60; Glucose 98 mg/dL (65-110); HDL Direct 64 mg/dL; Sodium 141 mmol/L (137-145); Triglycerides 129 mg/dL (<150)
[2022-08-06 16:10] LABS: LDL Cholesterol Direct 30 mg/dL
[2022-08-06 16:15] LABS: Vitamin D 25 Hydroxy 58.6 ng/mL
== END 2022-08-06 14:50 | disposition home or self-care (01) ==
LOC: ANHLAB 14:51
PROVIDERS: PCP Internal Medicine; Visit Provider Nurse Practitioner
DX: E78.5 Hyperlipidemia, unspecified (principal); E55.9 Vitamin D deficiency, unspecified
CPT/HCPCS: 36415; 80053; 80061; 82306

== ENCOUNTER 2022-09-28 14:04 | Emergency (ER) | payer MEDICARE, SELFPAY ==
[2022-09-28 14:06] VITALS: BP 171/78; PULSE 66; RESP 18; TEMP 36.8; O2SAT 100
[2022-09-28] MEDS: LIDOCAINE 5% PATCH 1 PATCH TRANSDERM (15:15)
[2022-09-28] MEDS: ACETAMINOPHEN 500 MG TABLET 1000 MG PO (15:15)
[2022-09-28] MEDS: diazePAM (*CRX) 2 MG TABLET PO (15:15)
--- NOTE | 2022-09-28 16:03 | ED.NECK ---
HPI - Neck Pain/Injury General Chief Complaint: Neck Pain/Injury Stated Complaint: neck pain Time Seen by Provider: 09/28/22 14:41 History of Present Illness HPI Narrative: 77-year-old male presenting with pain in his neck, mostly on the left side, started about a week ago upon waking up, he thinks he may have been the way he was sleeping, has tried Tylenol once or twice with improvement in symptoms, denies any focal numbness or weakness, and slurred speech, dizziness or vertigo or difficulty walking. Related Data Home Medications Medication Instructions Recorded Confirmed metoprolol succinate 50 mg 50 mg PO QNOON 07/25/19 03/25/22 tablet,extended release 24 hr clopidogrel 75 mg tablet 75 mg PO QNOON 03/04/20 03/25/22 ferrous sulfate 325 mg (65 mg 325 mg PO QNOON 05/02/20 03/25/22 iron) tablet olmesartan 40 mg tablet 40 mg PO QNOON 05/02/20 03/25/22 albuterol sulfate 90 mcg/actuation 2 inh inhalation Q6-8H PRN 12/10/20 03/25/22 aerosol inhaler (ProAir HFA) Shortness Of Breath multivitamin 1 tablet PO DAILY 05/15/21 03/25/22 temazepam 30 mg capsule 30 mg PO QHS PRN Anxiety 05/15/21 03/25/22 fluticasone fur. 100 mcg-umeclid 1 inh inhalation DAILY 08/20/21 03/25/22 62.5 mcg-vilant 25 mcg inhalat.powder (Trelegy Ellipta) Allergies Allergy/AdvReac Type Severity Reaction Status Date / Time levofloxacin Allergy Unknown PAIN IN Verified 03/25/22 10:37 PENIS Review of Systems Review of Systems: CONST: No fever. HEENT: Neck pain C/V: No chest pain RESP: No cough GI: No nausea or vomiting : No dysuria. M/S: No joint pain. SKIN: No rash. NEURO: [No headache or focal numbness or weakness] PSYCH: [No depression] [facility] Past Medical History Medical History Anemia Benign colon polyp Chronic obstructive pulmonary disease Congestive heart failure Echocardiogram in March 2018 showed normal left ventricular systolic function and side with sigmoid hypertrophy of the septum and diastolic dysfunction with an EF of 60 to 65%. Coronary artery disease With history of [place]. Status post 4 vessel CABG in 2000 with PELAEZ to LAD, SVG to RCA, radial to OM, and SVG to diagonal. All vessels were patent except for the SVG to diagonal which was occluded and 50% stenosis of the SVG to the RCA on cardiac catheterization done at [place] in 2016. Diverticulitis (~01/2018) Dyslipidemia Essential hypertension Gastroesophageal reflux disease History of ESBL Klebsiella pneumoniae infection History of tobacco abuse Irritable bowel syndrome with diarrhea Kidney stones Obstructive sleep apnea Peripheral arterial disease With chronic right lower extremity claudication. Arteriogram done over a decade ago showed an occluded right femoral artery which has been treated with dual anti-platelet therapy. He has refused surgical intervention. Primary insomnia Pulmonary nodules Being monitored on serial CT scans. 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 Pagan, workup initiated for iron deficiency anemia. Syncope Loop recorder was unrevealing and was removed in 2017. Tobacco abuse Surgical History Surgical History History of cataract extraction History of cystoscopy History of four vessel coronary artery bypass graft (~2000) Cardiac catheterization at [place] in 2016 showed occluded SVG to diagonal, 50% stenosis of SVG to RCA, patent PELAEZ to LAD, and patent radial to OM. History of laparoscopic cholecystectomy (~02/2015) History of lithotripsy History of loop recorder Subsequently removed in 2017. History of surgery on arm Repair right triceps. History of tonsillectomy S/P UPPP (uvulopalatopharyngoplasty) Status post dilatation of esophageal stricture Status post surgical removal of malignant neoplasm of skin Excision of skin cancer from ear. Family History Family History (Reviewe
[2022-09-28 16:18] VITALS: BP 148/74; PULSE 72; RESP 16; O2SAT 99
== END 2022-09-28 16:20 | disposition home or self-care (01) ==
PROVIDERS: Emergency Provider Emergency Medicine; PCP Internal Medicine
DX: M54.2 Cervicalgia (principal); I25.10 Atherosclerotic heart disease of native coronary artery without angina pectoris; I50.9 Heart failure, unspecified; E78.5 Hyperlipidemia, unspecified; I11.0 Hypertensive heart disease with heart failure; I73.9 Peripheral vascular disease, unspecified; K21.9 Gastro-esophageal reflux disease without esophagitis; K58.0 Irritable bowel syndrome with diarrhea; G47.33 Obstructive sleep apnea (adult) (pediatric); F17.210 Nicotine dependence, cigarettes, uncomplicated; Z98.49 Cataract extraction status, unspecified eye; Z95.1 Presence of aortocoronary bypass graft; Z87.442 Personal history of urinary calculi; Z86.2 Personal history of diseases of the blood and blood-forming organs and certain disorders involving the immune mechanism; Z86.010 Personal history of colon polyps; Z85.828 Personal history of other malignant neoplasm of skin
CPT/HCPCS: 99283; A9270

== ENCOUNTER 2022-09-30 15:25 | Outpatient (CLI) | payer MEDICARE, SELFPAY ==
[2022-10-04 21:29] LABS: PCP NEGATIVE ng/mL (<25)
[2022-10-06 11:25] LABS: Amphetamines Negative; Barbiturates Negative; Benzodiazepines Positive; Cocaine Metabolites Negative; Marijuana Metabolites Negative
== END 2022-09-30 15:26 | disposition home or self-care (01) ==
LOC: ANHLAB 15:26
PROVIDERS: PCP Internal Medicine; Visit Provider Internal Medicine
DX: Z51.81 Encounter for therapeutic drug level monitoring (principal); Z79.899 Other long term (current) drug therapy
CPT/HCPCS: 80307

== ENCOUNTER 2023-01-06 15:21 | Outpatient (CLI) | payer MEDICARE, SELFPAY ==
[2023-01-06 15:35] LABS: Hematocrit 44.9 % (42.0-52.0); Hemoglobin 15.2 g/dL (14.0-18.0); Mean Corpuscular HGB Conc 33.9 g/dl (32-36); Mean Corpuscular Hemoglobin 32.8 pg (26-34); Mean Corpuscular Volume 96.8 fl (80-100); Platelet Count Result 169 k/mm3 (150-375); Red Blood Count 4.64 M/mm3 (4.6-6.20); Red Cell Distribution Width 12.1 % (11.5-14.5); White Blood Count 8.6 K/mm3 (4.5-10.0)
[2023-01-06 16:44] LABS: Alanine Aminotransferase 38 U/L (6-50); Albumin Level 4.7 g/dL (3.5-5.1); Alkaline Phosphatase 117 U/L (38-126); Anion Gap 20 mmol/L (8-16); Aspartate Amino Transferase 63 U/L (17-59); Blood Urea Nitrogen 25 mg/dL (9-20); Calcium 8.3 mg/dL (8.4-10.2); Carbon Dioxide 17 mmol/L (22-30); Chloride 102 mmol/L (98-107); Estimated Glomerular Filt Rate > 60; Glucose 70 mg/dL (65-110); Potassium 4.3 mmol/L (3.4-5.0); Sodium 139 mmol/L (137-145)
[2023-01-06 17:23] LABS: Prostate Specific Antigen 1.6 ng/mL (< OR = 4.0)
[2023-01-06 17:43] LABS: Vitamin B12 > 1000.0 pg/mL (239-931)
== END 2023-01-06 15:22 | disposition home or self-care (01) ==
PROVIDERS: PCP Internal Medicine; Visit Provider Internal Medicine
DX: D64.9 Anemia, unspecified (principal); R74.8 Abnormal levels of other serum enzymes; N40.0 Benign prostatic hyperplasia without lower urinary tract symptoms; I10 Essential (primary) hypertension; Z12.5 Encounter for screening for malignant neoplasm of prostate
CPT/HCPCS: 36415; 80053; 82607; 84153; 84443; 85027; G0103

== ENCOUNTER 2023-03-07 14:22 | Outpatient (CLI) | payer MEDICARE, SELFPAY ==
[2023-03-07 15:04] LABS: Hematocrit 44.2 % (42.0-52.0); Immature Platelet Fraction Pct 9.8 % (0.9-11.2); Mean Corpuscular HGB Conc 33.9 g/dl (32-36); Mean Corpuscular Hemoglobin 32.9 pg (26-34); Mean Corpuscular Volume 96.9 fl (80-100); Mean Platelet Volume 11.3 fl (7.4-10.4); Platelet Count Result 121 k/mm3 (150-375); Red Blood Count 4.56 M/mm3 (4.6-6.20); Red Cell Distribution Width 13.2 % (11.5-14.5)
[2023-03-07 15:06] LABS: Alanine Aminotransferase 164 U/L (6-50); Albumin Level 4.3 g/dL (3.5-5.1); Alkaline Phosphatase 584 U/L (38-126); Anion Gap 8 mmol/L (8-16); Aspartate Amino Transferase 260 U/L (17-59); Bilirubin,Total 1.1 mg/dL (0.2-1.3); Blood Urea Nitrogen 12 mg/dL (9-20); Calcium 8.6 mg/dL (8.4-10.2); Carbon Dioxide 28 mmol/L (22-30); Chloride 104 mmol/L (98-107); Cholesterol 115 mg/dL (0-200); Estimated Glomerular Filt Rate > 60; Glucose 87 mg/dL (65-110); HDL Direct 60 mg/dL; Potassium 4.5 mmol/L (3.4-5.0); Sodium 140 mmol/L (137-145); Triglycerides 71 mg/dL (<150)
[2023-03-07 15:17] LABS: LDL Cholesterol Direct 34 mg/dL
[2023-03-07 16:27] LABS: Creatinine Urine 130.4 mg/dL
[2023-03-07 16:30] LABS: MALB Creatinine Ratio 8.7 mg/g (0-30); Microalbumin Urine Random 11.3 mg/L (0-16.7)
== END 2023-03-07 14:23 | disposition home or self-care (01) ==
PROVIDERS: PCP Family Medicine; Visit Provider Nurse Practitioner Family
DX: E11.9 Type 2 diabetes mellitus without complications (principal); I10 Essential (primary) hypertension; R53.83 Other fatigue
CPT/HCPCS: 36415; 80053; 80061; 82043; 84443; 85027; 85055

== ENCOUNTER 2023-03-30 08:11 | Outpatient (CLI) | payer MEDICARE, SELFPAY ==
--- NOTE | ~2023-03-30 | US_ITS ---
EXAMINATION: US abdomen limited DATE: 03/30/2023 08:29 INDICATION: Abnormal levels of other serum enzymes. TECHNIQUE: Multiple grayscale and Doppler ultrasound images of the abdomen were obtained. COMPARISON: Ultrasound 06/17/2021, CT abdomen and pelvis 03/19/2020 FINDINGS: The visualized portions of the head, body, and tail of the pancreas are normal. The liver d emonstrates coarsened echotexture and surface nodularity. There is normal flow in main portal vein. T he gallbladder is absent. The common duct is normal and measures 3 mm . IMPRESSION: 1. Liver coarsened echotexture and surface nodularity suspicious for cirrhosis. Reviewed, dictated and finalized at location A.
== END 2023-03-30 08:12 | disposition home or self-care (01) ==
LOC: ANHIMG 08:12
PROVIDERS: PCP Family Medicine; Visit Provider Family Medicine
DX: R74.8 Abnormal levels of other serum enzymes (principal)
CPT/HCPCS: 76705

== ENCOUNTER 2024-01-20 09:14 | Outpatient (CLI) | payer MEDICARE, SELFPAY ==
--- NOTE | ~2024-01-20 | DEXA_ITS ---
Bone Density Report Name: RAISSA TROY Age: 78 Sex: Male Ethnicity: White Date of : 1945 Indication: osteopenia; height loss; Referring Provider: ADÁN ROBBINS Study: Bone densitometry was performed. Exam Date: January 20, 2024 Accession number: [id number] Bone Density: Region BMD T-score Z-score Classification AP Spine(L1-L4) 1.110 0.2 1.4 Normal Femoral Neck (Left) 0.517 -3.0 -1.5 Osteoporosis Total Hip (Left) 0.812 -1.5 -0.4 Osteopenia Femoral Neck (Right) 0.556 -2.7 -1.2 Osteoporosis Total Hip (Right) 0.831 -1.3 -0.3 Osteopenia Total Hip Mean 0.822 -1.4 -0.4 Osteopenia World Health Organization criteria for BMD impression classify patients as: Normal (T-score at or above -1.0), Osteopenia (T-score between -1.0 and -2.5), or Osteoporosis (T-score at or below -2.5). 10-year Fracture Risk: FRAX not reported because: Some T-score for Spine Total or Hip Total or Femoral Neck at or below -2.5 Previous Exams: Region Exam Age BMD T-score BMD Change BMD Change Date g/cm2 vs Baseline vs Previous AP Spine (L1-L4) 01/20/2024 78 1.110 0.2 0.038 (3.6%)* 0.038 (3.6%)* 07/14/2021 76 1.072 -0.2 Total Hip(Left) 01/20/2024 78 0.812 -1.5 0.036 (4.7%)* 0.036 (4.7%)* 07/14/2021 76 0.776 -1.7 Total Hip(Right) 01/20/2024 78 0.831 -1.3 0.071 (9.3%)* 0.071 (9.3%)* 07/14/2021 76 0.760 -1.8 *Denotes significance at 95% confidence level, LSC for AP Spine = 0.022 g/cm2, LSC for Total Hip = 0.027 g/cm2 Clinical Information Provided by Patient: Smokes Has used the following medications: Vitamin D Patient maximum height was 72.0 No regular weight bearing exercise Drinks caffeinated beverages Impression: The patient has osteoporosis, based on the Left Femoral Neck T-score. The patient has risk factors, including: smoking. No significant bone loss was observed. Discussion: INCREASED RISK OF FRACTURE. BONE DENSITY IS UNDESIRABLY LOW AT ONE OR MORE SKELETAL SITES, CONSISTENT WITH OSTEOPOROSIS. This patient's lowest T-score meets the World Health Organization's (WHO) criteria for osteoporosis at one or more sites (T-score -2.5 or below). In untreated patients, the risk of osteoporotic fracture increases approximately two-fold for each 1.0 SD decrease in T-score. Low bone density is not the only risk factor for fracture; also consider factors such as patient's age, frailty or poor health, risk of falling, risk of injury, previo
== END 2024-01-20 09:15 | disposition home or self-care (01) ==
LOC: ANHIMG 09:15
PROVIDERS: PCP Family Medicine; Visit Provider Family Medicine
DX: S32.010A Wedge compression fracture of first lumbar vertebra, initial encounter for closed fracture (principal); M85.89 Other specified disorders of bone density and structure, multiple sites; M81.0 Age-related osteoporosis without current pathological fracture; X58.XXXA Exposure to other specified factors, initial encounter
CPT/HCPCS: 77080

== ENCOUNTER 2024-02-02 15:42 | Outpatient (CLI) | payer MEDICARE, SELFPAY ==
[2024-02-02 16:41] LABS: Hematocrit 41.7 % (42.0-52.0); Hemoglobin 14.3 g/dL (14.0-18.0); Mean Corpuscular HGB Conc 34.3 g/dl (32-36); Mean Corpuscular Hemoglobin 31.4 pg (26-34); Mean Corpuscular Volume 91.4 fl (80-100); Mean Platelet Volume 11.9 fl (7.4-10.4); Platelet Count Result 152 k/mm3 (150-375); Red Blood Count 4.56 M/mm3 (4.6-6.20); Red Cell Distribution Width 12.6 % (11.5-14.5); White Blood Count 8.5 K/mm3 (4.5-10.0)
[2024-02-02 16:51] LABS: Alanine Aminotransferase 20 U/L (6-50); Albumin Level 4.8 g/dL (3.5-5.1); Alkaline Phosphatase 73 U/L (38-126); Anion Gap 11 mmol/L (4-12); Aspartate Amino Transferase 27 U/L (17-59); Blood Urea Nitrogen 23 mg/dL (9-20); Calcium 9.1 mg/dL (8.4-10.2); Carbon Dioxide 24 mmol/L (22-30); Chloride 108 mmol/L (98-107); Cholesterol 94 mg/dL (0-200); Estimated Glomerular Filt Rate > 60; Glucose 98 mg/dL (65-110); HDL Direct 33 mg/dL; Potassium 4.4 mmol/L (3.4-5.0); Sodium 143 mmol/L (137-145); Triglycerides 92 mg/dL (<150)
[2024-02-02 17:04] LABS: LDL Cholesterol Direct 52 mg/dL
[2024-02-02 17:22] LABS: Prostate Specific Antigen 1.2 ng/mL (< OR = 4.0)
[2024-02-02 17:56] LABS: Hepatitis B Surface Antigen Negative (Negative)
[2024-02-02 18:01] LABS: HAV RESULT Negative (Negative); Hepatitis B Core IgM Result Negative (Negative)
[2024-02-02 18:13] LABS: Hepatitis C Virus Antibody Negative (Negative)
== END 2024-02-02 15:43 | disposition home or self-care (01) ==
PROVIDERS: PCP Family Medicine; Visit Provider Family Medicine
DX: Z12.5 Encounter for screening for malignant neoplasm of prostate (principal); R94.5 Abnormal results of liver function studies; E55.9 Vitamin D deficiency, unspecified; G25.0 Essential tremor; G47.00 Insomnia, unspecified; G47.33 Obstructive sleep apnea (adult) (pediatric); I21.4 Non-ST elevation (NSTEMI) myocardial infarction; I25.10 Atherosclerotic heart disease of native coronary artery without angina pectoris; I11.0 Hypertensive heart disease with heart failure; I50.33 Acute on chronic diastolic (congestive) heart failure; J44.9 Chronic obstructive pulmonary disease, unspecified; K58.0 Irritable bowel syndrome with diarrhea; E46 Unspecified protein-calorie malnutrition; E78.2 Mixed hyperlipidemia; F10.10 Alcohol abuse, uncomplicated; G47.10 Hypersomnia, unspecified; I73.9 Peripheral vascular disease, unspecified; K21.9 Gastro-esophageal reflux disease without esophagitis; M48.061 Spinal stenosis, lumbar region without neurogenic claudication; M81.0 Age-related osteoporosis without current pathological fracture; R74.8 Abnormal levels of other serum enzymes; S32.010A Wedge compression fracture of first lumbar vertebra, initial encounter for closed fracture; X58.XXXA Exposure to other specified factors, initial encounter
CPT/HCPCS: 36415; 80053; 80061; 80074; 82248; 84153; 85027; G0103

== ENCOUNTER 2024-09-03 11:40 | Outpatient (CLI) | payer MEDICARE, SELFPAY ==
[2024-09-03 12:02] LABS: Hematocrit 38.5 % (42.0-52.0); Hemoglobin 12.4 g/dL (14.0-18.0); Immature Platelet Fraction Pct 10.2 % (0.9-11.2); Mean Corpuscular HGB Conc 32.2 g/dl (32-36); Mean Corpuscular Hemoglobin 29.8 pg (26-34); Mean Corpuscular Volume 92.5 fl (80-100); Mean Platelet Volume 11.8 fl (7.4-10.4); Platelet Count Result 136 k/mm3 (150-375); Red Blood Count 4.16 M/mm3 (4.6-6.20); Red Cell Distribution Width 13.5 % (11.5-14.5); White Blood Count 6.3 K/mm3 (4.5-10.0)
[2024-09-03 12:19] LABS: Alanine Aminotransferase 18 U/L (6-50); Alkaline Phosphatase 71 U/L (38-126); Anion Gap 9 mmol/L (4-12); Aspartate Amino Transferase 27 U/L (17-59); Bilirubin,Total 0.6 mg/dL (0.2-1.3); Blood Urea Nitrogen 23 mg/dL (9-20); Calcium 8.5 mg/dL (8.4-10.2); Carbon Dioxide 26 mmol/L (22-30); Chloride 109 mmol/L (98-107); Estimated Glomerular Filt Rate > 60; Glucose 111 mg/dL (65-110); Potassium 4.3 mmol/L (3.4-5.0); Sodium 144 mmol/L (137-145)
[2024-09-03 12:34] LABS: Vitamin D 25 Hydroxy 94.1 ng/mL
== END 2024-09-03 11:41 | disposition home or self-care (01) ==
LOC: ANHLAB 11:43
PROVIDERS: PCP Family Medicine; Visit Provider Family Medicine
DX: Z72.0 Tobacco use (principal); R74.8 Abnormal levels of other serum enzymes; E55.9 Vitamin D deficiency, unspecified; I10 Essential (primary) hypertension; I73.9 Peripheral vascular disease, unspecified; D69.6 Thrombocytopenia, unspecified; R94.5 Abnormal results of liver function studies
CPT/HCPCS: 36415; 80053; 82306; 85027; 85055

== ENCOUNTER 2025-01-28 14:40 | Outpatient (CLI) | payer MEDICARE, SELFPAY ==
--- OUTSIDE RECORDS SUMMARY | 2025-01-28 15:48 | XMS_ITS | Continuity of Care Document ---
Author Organization [facility] Address [address] [place] [address] [place] [address] Phone Care Team Providers Care Talent Development Director Name Role Phone Rickey Manzano DO Unavailable Unavailable Advance Directives Directive Yes / No Effective Date File Name No Information Encounters Encounter Description Practice Location Reason(s) For Visit Diagnoses Date Provider Providers Copied on Encounter [facility], [address], [place], [place], [id number], [place] tel:[phone] [facility] No Information Jose Juan Villagran. [address] [place], [address], [place]. tel: [phone] Family History Family Member Type Diagnosis Age At Onset No Information Payers Payer name Insurance type Covered democrat ID Authoriza tisalena(s) [employer] SOI CI [id number] Social History Type Description Quantity Date Captured Comments Sex Male Smoking Status No Information Chief Complaint And Reason For Visit No Information Reason For Referral Reason For Referral No Information History Of Present Illness Encounter Date Complaint History Of Prese nt Illness No Information Functional Status Date Functional Assessmen t No Information Instructions Date Instruction Additional Infor mation No Information Assessments Type Assessment Date No Information Patient Care Teams Name Effective Dates (start - stop) Status Members No Information
--- OUTSIDE RECORDS SUMMARY | 2025-01-28 15:48 | XMS_ITS | Encounter Summary ---
Author Organization [facility] Facility Care Team Providers Care Acting Teacher Name Role Phone Chetan Lilly MD Primary Care Provider [phone] Hira Pino MD Unavailable [phone] Patience Bartholomew MD Primary Care Provider + Darrian Bartholomew MD Primary Care Provider [phone] Sadi Clemons MD Primary Care Provider [phone] Encounter Details Date Type Department Care Team (Latest Contact Info) Description 12/04/2013 Orders Only [facility] CLINCONV ProviderMartina MD [address] [place] [address] Social History Tobacco Use Types Packs/Day Years Used Date Smoking Tobacco: Never Assessed Sex and Gender Information Value Date Recorded Sex Assigned at Not on file Legal Sex Male 3:46 AM HANDBOOK WRITER Gender Identity Not on file Sexual Orientation Not on file documented as of this encounter Plan of Treatment Not on file documented as of this encounter Procedures Procedure Name Priority Date/Time Associated Diagnosis Comments CARDIOLOGY REPORT 09/27/2016 12: 00 AM HANDBOOK WRITER documented in this encounter Results * CARDIOLOGY REPORT (09/27/2016 12:00 AM HANDBOOK WRITER) Anatomical Region Laterality Modality Other Narrative 09/27/2016 12:00 AM HANDBOOK WRITER Ordered by an unspecified provider. us Historical Provider [facility] SMITH WEAVER Final Result documented in this encounter Visit Diagnoses Not on filedocumented in this encounter Care Teams Acting Teacher Relationship Specialty Start Date End Date Chetan Lilly MD [address] [place] [address] PCP - General Internal Medicine 08/22/17 06/10/19 Patience Bartholomew MD [address] [facility] [address] [address] [place] [address] PCP - General Vascular Surgery 06/11/19 02/05/21 Darrian Bartholomew MD [address] [address] PCP - General Internal Medicine 02/06/21 05/01/23 Sadi Clemons MD [address] [address] PCP - General Family Practice 05/02/23 Hira Pino MD [address] [facility] [address] [address] [address] Fisher Oyster Cardiovascular Disease 06/08/19 documented as of this encounter
--- OUTSIDE RECORDS SUMMARY | 2025-01-28 15:48 | XMS_ITS | Encounter Summary ---
Author Organization [facility] Facility Care Team Providers Care Gate Mortiser Operator Name Role Phone Chetan Lilly MD Primary Care Provider [phone] Hira Pino MD Unavailable [phone] Patience Bartholomew MD Primary Care Provider + Darrian Bartholomew MD Primary Care Provider [phone] Sadi Clemons MD Primary Care Provider [phone] Encounter Details Date Type Department Care Team (Latest Contact Info) Description 05/03/2018 Orders Only [facility] CLINCONV ProviderMartina MD [address] [place] [address] Social History Tobacco Use Types Packs/Day Years Used Date Smoking Tobacco: Never Assessed Sex and Gender Information Value Date Recorded Sex Assigned at Not on file Legal Sex Male 3:46 AM ACCOUNT RESOLUTION ANALYST Gender Identity Not on file Sexual Orientation Not on file documented as of this encounter Plan of Treatment Not on file documented as of this encounter Procedures Procedure Name Priority Date/Time Associated Diagnosis Comments SCAN - LABS 05/16/2018 12:00 AM CDT documented in this encounter Results * SCAN - LABS (05/16/2018 12:00 AM CDT) Narrative 05/16/2018 12:00 AM CDT Ordered by an unspecified provider. us Historical Provider Final Res ult documented in this encounter Visit Diagnoses Not on filedocumented in this encounter Care Teams Gate Mortiser Operator Relationship Specialty Start Date End Date Chetan Lilly MD [address] [place] [address] PCP - General Internal Medicine 08/22/17 06/10/19 Patience Bartholomew MD [address] [facility] [address] [place] [address] PCP - General Vascular Surgery 06/11/19 02/05/21 Darrian Bartholomew MD [address] [address] PCP - General Internal Medicine 02/06/21 05/01/23 Sadi Clemons MD [address] [address] PCP - General Family Practice 05/02/23 Hira Pino MD [address] [facility] [address] [place] [address] Research Contracts Supervisor Cardiovascular Disease 06/08/19 documented as of this encounter
--- OUTSIDE RECORDS SUMMARY | 2025-01-28 15:48 | XMS_ITS | Encounter Summary ---
Author Organization [facility] Facility Care Team Providers Care Stone Setter Apprentice Name Role Phone Chetan Lilly MD Primary Care Provider [phone] Hira Pino MD Unavailable [phone] Patience Bartholomew MD Primary Care Provider + Darrian Bartholomew MD Primary Care Provider [phone] Sadi Clemons MD Primary Care Provider [phone] Encounter Details Date Type Department Care Team (Latest Contact Info) Description 01/14/2004 Orders Only [facility] CLINCONV ProviderMartina MD [address] [place] [address] Social History Tobacco Use Types Packs/Day Years Used Date Smoking Tobacco: Never Assessed Sex and Gender Information Value Date Recorded Sex Assigned at Not on file Legal Sex Male 3:46 AM GENERAL MANAGER LAND DEPARTMENT Gender Identity Not on file Sexual Orientation Not on file documented as of this encounter Plan of Treatment Not on file documented as of this encounter Procedures Procedure Name Priority Date/Time Associated Diagnosis Comments CARDIOLOGY REPORT 09/27/2016 12: 00 AM GENERAL MANAGER LAND DEPARTMENT documented in this encounter Results * CARDIOLOGY REPORT (09/27/2016 12:00 AM GENERAL MANAGER LAND DEPARTMENT) Anatomical Region Laterality Modality Other Narrative 09/27/2016 12:00 AM GENERAL MANAGER LAND DEPARTMENT Ordered by an unspecified provider. us Historical Provider CV CARDIAC SERVICES SMITH WEAVER Final Result documented in this encounter Visit Diagnoses Not on filedocumented in this encounter Care Teams Stone Setter Apprentice Relationship Specialty Start Date End Date Chetan Lilly MD [address] [place] [address] PCP - General Internal Medicine 08/22/17 06/10/19 Patience Bartholomew MD [address] [facility] [address] [address] [place] [address] PCP - General Vascular Surgery 06/11/19 02/05/21 Darrian Bartholomew MD [address] [address] PCP - General Internal Medicine 02/06/21 05/01/23 Sadi Clemons MD [address] [address] PCP - General Family Practice 05/02/23 Hira Pino MD [address] [facility] [address] [address] Observation Assistant Cardiovascular Disease 06/08/19 documented as of this encounter
--- OUTSIDE RECORDS SUMMARY | 2025-01-28 15:48 | XMS_ITS | Encounter Summary ---
Author Organization [facility] Facility Care Team Providers Care Manager Office Services Name Role Phone Chetan Lilly MD Primary Care Provider [phone] Hira Pino MD Unavailable [phone] Patience Bartholomew MD Primary Care Provider + Darrian Bartholomew MD Primary Care Provider [phone] Sadi Clemons MD Primary Care Provider [phone] Encounter Details Date Type Department Care Team (Latest Contact Info) Description 07/06/2017 Orders Only [facility] CLINCONV Provider, MD Martina [address] [place] [address] Social History Tobacco Use Types Packs/Day Years Used Date Smoking Tobacco: Never Assessed Sex and Gender Information Value Date Recorded Sex Assigned at Not on file Legal Sex Male 3:46 AM PRESIDENT CELEBRITY ACQUISTION Gender Identity Not on file Sexual Orientation Not on file documented as of this encounter Plan of Treatment Not on file documented as of this encounter Procedures Procedure Name Priority Date/Time Associated Diagnosis Comments SCAN - LABS 07/06/2017 12:00 AM PRESIDENT CELEBRITY ACQUISTION SCAN - LABS 07/06/2017 12:00 AM PRESIDENT CELEBRITY ACQUISTION documented in this encounter Results * SCAN - LABS (07/06/2017 12:00 AM PRESIDENT CELEBRITY ACQUISTION) Narrative 07/06/2017 12:00 AM PRESIDENT CELEBRITY ACQUISTION Ordered by an unspecified provider. Historical Provider Final Res ult * SCAN - LABS (07/06/2017 12:00 AM PRESIDENT CELEBRITY ACQUISTION) Narrative 07/06/2017 12:00 AM PRESIDENT CELEBRITY ACQUISTION Ordered by an unspecified provider. us Historical Provider Final Res ult documented in this encounter Visit Diagnoses Not on filedocumented in this encounter Care Teams Manager Office Services Relationship Specialty Start Date End Date Chetan Lilly MD [address] [place] [address] PCP - General Internal Medicine 08/22/17 06/10/19 Patience Bartholomew MD [address] [facility] [address] [place] [address] [place] [address] PCP - General Vascular Surgery 06/11/19 02/05/21 Darrian Bartholomew MD [address] [place] [address] PCP - General Internal Medicine 02/06/21 05/01/23 Sadi Clemons MD [address] [address] PCP - General Family Practice 05/02/23 Hira Pino MD [address] [facility] [address] [address] Maintenance Team Member Cardiovascular Disease 06/08/19 documented as of this encounter
--- OUTSIDE RECORDS SUMMARY | 2025-01-28 15:48 | XMS_ITS | Encounter Summary ---
Author Organization [facility] Healthcare Address [address] [place] [address] Care Team Providers Care Bedspread Folder Name Role Phone Hira Pino MD Unavailable Sadi Clemons MD Primary Care Provider [phone] Encounter Details Date Type Department Care Team (Late st Contact Info) Description 01/03/2025 Results Follow-Up [facility] Gastroenterology at [address] [place] [id number] Salvador Michael NP [address] [place] [address] [address] [place] [address] [place] Social History Tobacco Use Types Packs/Day Years Used Date Smoking Tobacco: Every Day Cigarettes 1 15.6 Started: 06/11/2009 Vaping Smokeless Tobacco: Never Alcohol Use Standard Drinks/Week Comments Yes 3 (1 standard drink = 0.6 oz pur e alcohol) whiskey and coke daily AUDIT-C Answer Date Recorded Q1: How often do you have a drink containing alc ohol? Monthly or less 12/20/2024 Average Number of Drinks Not on file 025 Frequency of Binge Drinking Not on file 08/2024 Sex and Gender Information Value Date Recorded Sex Assigned at Not on file Legal Sex Male 3:46 AM TIRE MOLD ENGRAVER Gender Identity Not on file Sexual Orientation Not on file documented as of this encounter Miscellaneous Notes * Result Encounter Note - Salvador Michael NP - 01/03/2025 12:53 PM CDT Please let patient know ultrasound showed stable liver disease without concerns for liver cancer. documented in this encounter Plan of Treatment Not on file documented as of this encounter Visit Diagnoses Not on filedocumented in this encounter Care Teams Bedspread Folder Relationship Specialty Start Date End Date Sadi Clemons MD [address] [facility] [address] [address] PCP - General Family Practice 05/02/23 Hira Pino MD [address] [facility] [address] [address] Senior Producer Cardiovascular Disease 06/08/19 documented as of this encounter
--- OUTSIDE RECORDS SUMMARY | 2025-01-28 15:48 | XMS_ITS | Clinical Summary ---
Author Organization [facility] Neyda carson Address [address], [place] [address] Phone Care Team Providers Care Tobacco Warehouse Manager Name Role Phone Unavailable Primary Care Provider Unavailabl e Medications ferrous gluconate (FERGON) 324 (38 Fe) MG tablet 02/13/2015 Activ e cycloSPORINE (RESTASIS) 0.05 % ophthalmic emulsion 02/13/2015 Active fluticasone-salmet dariel (ADVAIR DISKUS) 500-50 MCG/DOSE diskus inhaler 02/13/2015 Active hyoscyamine (ANASPAZ,LEVSIN) 0.125 MG tablet 02/13/2015 Act conner omeprazole (PriLOSEC) [address] capsule 02/13/2015 Active temazepam (RESTORIL) 30 MG capsule 02/13/2015 Active albuterol HFA (PROAIR HFA) 108 (90 Base) MCG/ACT inhaler 02/13/2015 Active tadalafil (CIALIS) 20 MG tablet 02/13/2015 Active clopidogrel (PLAVIX) 75 MG tablet 02/13/2015 Active simvastatin (ZOCOR) 20 MG tablet 02/13/2015 Active sertraline (ZOLOFT) 100 MG tablet 02/13/2015 Active metoprolol succinate XL (TOPROL-XL) 25 MG 24 hr tablet 02/13/2015 Active Active Problems Problem Noted Date Diagnosed Date Calculus of kidney 01/06/2015 Abnormal result of kidney function study 015 Essential (primary) hypertension 01/06/2015 Other specified peripheral vascular disease 12/20 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 Family History Medical History Relation Comments Heart disease Father Coronary arteriosclerosis Mother Heart disease Mother Kidney disease Neg Hx Kidney stone Neg Hx Relation Status Comments Father Mother Social History Tobacco Use Types Packs/Day Years Used Date Smoking Tobacco: Never Assessed Sex and Gender Information Value Date Recorded Sex Assigned at Not on file Legal Sex Male 7:33 AM MST Gender Identity Not on file Sexual Orientation Not on file Last Filed Vital Signs Vital Sign Reading Time Taken Comments Blood Pressure 122/70 04/02/2015 12:01 AM CDT Pulse 60 04/02/2015 12:01 AM CDT Temperature 36.6 C (97.9 F) 04/02/2015 12:01 AM CDT Respiratory Rate - - Oxygen Saturation - - Inhaled Oxygen Concentration - - Weight 70.8 kg (156 lb) 04/02/2015 12:01 AM CDT Height 175.3 cm (5' 9) 04/02/2015 12:01 AM CDT Body Mass Index 23.04 04/02/2015 12:01 AM CDT Plan of Treatment Not on file
--- OUTSIDE RECORDS SUMMARY | 2025-01-28 15:48 | XMS_ITS | Clinical Summary ---
Author Organization [facility] Jayla boo Amanuelpiterclint Address [address] [place] [address] Care Team Providers Care Acid Mixer Name Role Phone Darrian Bartholomew MD Primary Care Provider [phone] Allergies No known active allergies Medications albuterol sulfate 90 mcg/Actuation inhaler Take 2 Puffs by inhalation. Active temazepam (RESTORIL) 30 mg capsule Take 30 mg by mouth daily. Active nitroglycerin (NITROSTAT) 0.3 mg Tablet, Sublingual Take 1 Tablet by mouth. 9 Active Multivitamin Capsule Take 1 Capsule by mouth daily. Active aspirin (ASPIR-81 ORAL) Aspir-81 Acti ve metoprolol succinate (TOPROL XL) 50 mg Extended Release 24 hour tablet metoprolol succinate ER 50 mg tablet,extended release 24 hr 1 Active ferrous sulfate 325 mg (65 mg iron) tablet ferrous sulfate 325 mg (65 mg iron) tablet TK 1 T PO BID 9 Active sertraline (ZOLOFT) 100 mg tablet sertraline 100 mg tablet Active clopidogreL (PLAVIX) 75 mg Tablet clopidogrel 75 mg tablet TK 1 T PO D 1 Active fluticasone-ume clidinium-vilan terol (TRELEGY ELLIPTA) 100-62.5-25 mcg Disk with Device Trelegy Ellipta 100 mcg-62.5 mcg-25 mcg powder for inhalation INL 1 PUFF PO AT THE SAME TIME Q DAY. 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 Family History Relation Name Status Comments Brother Alive Father Mother Son Alive Social History Tobacco Use Types Packs/Day Years Used Date Smoking Tobacco: Every Day Cigarettes Smokeless Tobacco: Never Comments:pt is cutting back Alcohol Use Standard Drinks/Week Comments Yes 0 (1 standard drink = 0.6 oz pur e alcohol) Sex and Gender Information Value Date Recorded Sex Assigned at Not on file Legal Sex Male 12:31 PM CDT Gender Identity Not on file Sexual Orientation Not on file Last Filed Vital Signs Vital Sign Reading Time Taken Comments Blood Pressure 151/79 01/15/2022 12:40 PM CDT Pulse 65 01/15/2022 12:40 PM CDT Temperature 36.2 C (97.2 F) 01/15/2022 12:40 PM CDT Respiratory Rate - - Oxygen Saturation 99% 01/15/2022 12:40 PM CDT Inhaled Oxygen Concentration - - Weight 76.8 kg (169 lb 6.4 oz) 01/15/2022 12:40 PM CDT Height 180.3 cm (5' 11) 01/15/2022 12:40 PM CDT Body Mass Index 23.63 01/15/2022 12:40 PM CDT Plan of Treatment Health Maintenance Due Date Last Done Comments DTAP/TDAP/TD VACCINES (1 - Tdap) 1962 PNEUMOCOCCAL VACCINE 50+ YEARS (1 of 2 - PCV) 03/05/19 62 ZOSTER VACCINE (1 of 2) 1993 RSV VACCINE (60+ or ) (1 - 1-dose 75+ series) 2018 INFLUENZA VACCINE (#1) 2024 Insurance [facility] [id number] Care Teams Acid Mixer Relationship Specialty Start Date End Date Darrian Bartholomew MD [address] [place] [address] PCP - General Internal Medicine 06/04/21
--- OUTSIDE RECORDS SUMMARY | 2025-01-28 15:48 | XMS_ITS | Encounter Summary ---
Author Organization [facility] Facility Care Team Providers Care Rebar Fabricator Name Role Phone Chetan Lilly MD Primary Care Provider [phone] Hira Pino MD Unavailable Patience Bartholomew MD Primary Care Provider + Darrian Bartholomew MD Primary Care Provider [phone] Sadi Clemons MD Primary Care Provider [phone] Encounter Details Date Type Department Care Team (Latest Contact Info) Description 10/14/2011 Orders Only [facility] CLINCONV ProviderMartina MD [address] [place] [address] Social History Tobacco Use Types Packs/Day Years Used Date Smoking Tobacco: Never Assessed Sex and Gender Information Value Date Recorded Sex Assigned at Not on file Legal Sex Male 3:46 AM ARMATURE COIL WINDER Gender Identity Not on file Sexual Orientation Not on file documented as of this encounter Plan of Treatment Not on file documented as of this encounter Procedures Procedure Name Priority Date/Time Associated Diagnosis Comments CARDIOLOGY REPORT 09/27/2016 12: 00 AM ARMATURE COIL WINDER documented in this encounter Results * CARDIOLOGY REPORT (09/27/2016 12:00 AM ARMATURE COIL WINDER) Anatomical Region Laterality Modality Other Narrative 09/27/2016 12:00 AM ARMATURE COIL WINDER Ordered by an unspecified provider. us Historical Provider CV CARDIAC SERVICES SMITH WEAVER Final Result documented in this encounter Visit Diagnoses Not on filedocumented in this encounter Care Teams Rebar Fabricator Relationship Specialty Start Date End Date Chetan Lilly MD [address] [place] [address] PCP - General Internal Medicine 08/22/17 06/10/19 Patience Bartholomew MD [address] [facility] [address] [place] [address] [place] [address] PCP - General Vascular Surgery 06/11/19 02/05/21 Darrian Bartholomew MD [address] [address] PCP - General Internal Medicine 02/06/21 05/01/23 Sadi Clemons MD [address] [address] PCP - General Family Practice 05/02/23 Hira Pino MD [address] [facility] [address] [place] [address] [address] Jewel Setter Cardiovascular Disease 06/08/19 documented as of this encounter
--- OUTSIDE RECORDS SUMMARY | 2025-01-28 15:48 | XMS_ITS | Referral Summary ---
Author Organization [facility] [place] [address] Address [address] [place] [address] Care Team Providers Care Slack Cooper Name Role Phone Hira Pino MD Unavailable Sadi Clemons MD Primary Care Provider [phone] Encounters Date Type Department Care Team Description 01/03/2025 Results Follow-Up [facility] Gastroenterology at [address] [place] [address] Salvador Michael NP RU 01/01/2025 10:16 AM CDT - 01/01/2025 11:59 PM CDT Hospital Encounter [facility] [address] [place] [address] Hepatic fibrosis; History of alcoholism (HCC) Discharge Disposition: Discharge to home or self care 12/20/2024 1:30 PM CDT Office Visit [facility] Gastroenterology at [address] [place] [address] Salvador Michael NP Irritable bowel syndrome with both constipation and diarrhea (Primary Dx); Hepatic fibrosis; History of alcoholism (HCC); Vaping nicotine dependence, tobacco product; Duodenal erosion-History of in 2019; Gastroesophageal reflux disease without esophagitis 11/27/2024 2:15 PM CDT Office Visit [facility] Cardiology at [address] [place] [address] Connor Hawkins MD Coronary artery disease of [place] artery of [place] heart with stable angina pectoris (Primary Dx); Essential (primary) hypertension; Hyperlipidemia LDL goal <70; Tobacco use disorder; Atherosclerosis of [place] artery of both lower extremities with intermittent claudication from Last 3 Months Allergies Active Allergy Reactions Criticality Noted Date Comments No Known Allergies Other (See comments) Low 019 Reaction: Medications fluticasone propion-salmetero L (ADVAIR DISKUS) 500-50 mcg/dose diskus inhaler Inhale 1 puff 2 (two) times a day Active atorvastatin (LIPITOR) 80 mg tablet TAKE 1 TABLET BY MOUTH EVERY DAY 90 tablet 2 9 Active ferrous sulfate 325 mg (65 mg of elemental iron) tablet Take 1 tablet (325 mg total) by mouth daily Take 2 tablets once daily 3 9 Active albuterol HFA (PROVENTIL HFA,VENTOLIN HFA,PROAIR HFA) 90 mcg/actuation inhaler Inhale 2 puffs every 6 (six) hours as needed for wheezing Active multivitamin capsule Take 1 capsule by mouth daily Active TRELEGY ELLIPTA 100-62.5-25 mcg inhaler Take 1 puff by mouth daily 9 Active cyanocobalamin (Vitamin B-12) 100 mcg tabletIndications :Prevention of Vitamin B12 Deficiency Take 1 tablet (100 mcg total) by mouth daily Active alendronate (FOSAMAX) 70 mg tablet Take 1 tablet (70 mg total) by mouth once a week 1 Active tadalafiL (CIALIS) 20 mg tabletIndications :Erectile dysfunction due to arterial insufficiency Take 1 tablet (20 mg total) by mouth daily as needed for erectile dysfunction 10 tablet 1 2 025 Active primidone (MYSOLINE) 50 mg tablet Take 1 tablet (50 mg total) by mouth nightly at bedtime 3 Active ipratropium (ATROVENT) 21 mcg (0.03 %) nasal spray Administer 2 sprays into each nostril 2 (two) times a day 3 Active buPROPion XL (WELLBUTRIN XL) 150 mg 24 hr tablet Take 1 tablet (150 mg total) by mouth every morning 3 Active senna (SENOKOT) 8.6 mg tablet Take 1 tablet by mouth daily Active amLODIPine (NORVASC) 5 mg tabletIndications :hypertension Take 1 tablet (5 mg total) by mouth daily 90 tablet 3 4 025 Active metoprolol XL (TOPROL-XL) 50 mg extended release tablet TAKE 1 TABLET(50 MG) BY MOUTH DAILY 90 tablet 1 5 Active clopidogreL (PLAVIX) 75 mg tablet TAKE 1 TABLET(75 MG) BY MOUTH DAILY 90 tablet 1 5 Active temazepam (RESTORIL) 22.5 mg capsule Take 1 capsule (22.5 mg total) by mouth nightly as needed 5 Active Active Problems Problem Noted Date Diagnosed Date History of alcoholism 12/20/2024 Former smoker 08/26/2023 Vaping nicotine dependence, tobacco product 12/2023 Pulmonary nodule seen on imaging study 3 [place] infection 05/27/2023 Elevated liver enzymes 05/27/2023 Abnormal results of liver function studies 05/27 Hepatic fibrosis 05/27/2023 Irritable bowel syndrome wit h both constipation and diarrhea 05/27/2023 Tobacco use disorder 05/02/2023 Other thrombophilia 04/15/2023 Esophageal web determined by endoscopy 3 Gastroesophageal reflux disease without esophagi tis 04/15/2023 Duodenal erosion-History of in 201804/15/2023 Chronic diarrhea 04/15/2023 Chronic alcoholism 04/15/2023 Erectile dysfunction due to arterial insufficien cy 03/12/2022 Coronary artery disease of n [place]ive artery of [place] heart with stable angina pectoris 03/12/2022 Other secondary thrombocytopenia 06/04/2021 Coronary artery disease with history of myocardial infarction without history of CABG 06/11/2019 CHF (congestive heart failure) 06/11/2019 Atherosclerosis of [place] of both lower extremities with intermittent claudication 05/31/2018 Carotid stenosis, bilateral 05/31/2018 GIBBS (dyspnea on exertion) 02/14/2018 Iron deficiency anemia due to chronic blood loss 04/12/2017 Hyperlipidemia LDL goal <70 07/01/2016 Paroxysmal atrial fibrillation 04/29/2016 Syncope 04/29/2016 Essential (primary) hypertension 03/19/2016 Calculus of kidney 01/06/2015 Coronary atherosclerosis due to lipid rich plaqu e 01/06/2015 Pain in joint 01/06/2015 Resolved Problems Problem Noted Date Diagnosed Date Resolved Date Lipids abnormal 03/19/2016 06/08/2019 Immunizations Immunization Administration Dates Next Due Hep A, Adult 09/27/2012 Influenza, Quadrivalent, Hig h Dose, Preservative Free, Intrr 05/02/2020 Influenza, Trivalent, Adjuva nted, Intramuscular 06/07/2018,06/06/2018 Influenza, Trivalent, High D ose, Split, Preservative Free, Intramuscular 05/18/2019,05/10/2017,06/06/2016,05/23 Influenza, Trivalent, IM (MDV) 05/13/2014 Pneumococcal Polysaccharide PPV23 05/13/2014 Social History Tobacco Use Types Packs/Day Years Used Date Smoking Tobacco: Every Day Cigarettes 1 15.6 Started: 06/11/2009 Vaping Smokeless Tobacco: Never Tobacco Cessation:Ready to Q uit: Not Asked; Counseling Given: Not Answered Alcohol Use Standard Drinks/Week Comments Yes 3 [...] on file Legal Sex Male 3:46 AM SUPERVISING 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 Gender Identity Not on file Sexual Orientation Not on file Last Filed Vital Signs Vital Sign Reading Time Taken Comments Blood Pressure 148/80 12/20/2024 1:28 PM CDT Pulse 73 12/20/2024 1:28 PM CDT Temperature 36.4 C (97.5 F) 09/30/2020 2:23 PM SUPERVISING FIRE MARSHAL Respiratory Rate 18 08/23/2019 12:38 PM SUPERVISING FIRE MARSHAL Oxygen Saturation 96% 12/20/2024 1:28 PM CDT Inhaled Oxygen Concentration - - Weight 75.8 kg (167 lb 1.6 oz) 12/20/2024 1:28 P M CDT Height 180.3 cm (5' 11) 12/20/2024 1:28 PM CDT Body Mass Index 23.31 12/20/2024 1:28 PM CDT Plan of Treatment Not on file Procedures Procedure Name Priority Date/Time Associated Diagnosis Comments US RUQ Schedule Routine, Read Routine (OP Routine) 01/01/2025 11:40 AM CDT Hepatic fibrosis History of alcoholism (HCC) from Last 3 Months Results * US RUQ (01/01/2025 11:40 AM CDT) Anatomical Region Laterality Modality Abdomen N/A Ultrasound 01/03/2025 11:0 8 AM CDT Narrative 01/03/2025 11:10 AM CDT EXAM DESCRIPTION: US RUQ REASON FOR STUDY: Hepatic Fibrosis with history of alcoholism. US to evaluate liver health. TECHNIQUE: Ultrasound of the right upper quadrant of the abdomen was performed with grayscale and color doppler. COMPARISON: None FINDINGS: PANCREAS: Visualized portions of the pancreas are within normal limits. Portions of the pancreatic body and tail are obscured due to bowel gas. LIVER: Normal in size. Normal echogenicity. Mildly coarsened liver echotexture. No definite liver lesion. Antegrade flow within the visualized main portal vein. No definite surface nodularity. GALLBLADDER: Absent. BILIARY: There is no intrahepatic or extrahepatic biliary ductal dilatation. Common bile duct measures 9 mm in diameter. RIGHT KIDNEY: Normal in size. Measures 9.9 cm. No hydronephrosis. IMPRESSION: 1. Mildly coarsened liver echotexture. This could represent subtle underlying chronic liver disease. No definite liver lesion. Recommend continued follow-up. 2. Post cholecystectomy change. THIS IS AN ELECTRONICALLY VERIFIED FINAL REPORT 01/03/2025 11:10 AM - Electronically signed by Marcelino Robin M.D. AG: WILMER Report ID: [id number] Reading Location: [id number] Procedure Note Marcelino Robin MD - 01/03/2025 EXAM DESCRIPTION: US RUQ REASON FOR STUDY: Hepatic Fibrosis with history of alcoholism. US to evaluate liver health. TECHNIQUE: Ultrasound of the right upper quadrant of the abdomen wasperformed with grayscale and color doppler. COMPARISON: None FINDINGS: PANCREAS: Visualized portions of the pancreas are within normal limits. Portions of the pancreatic body and tail are obscured due to bowel gas. LIVER: Normal in size. Normal echogenicity. Mildly coarsened liver echotexture. No definite liver lesion. Antegrade flow within thevisualized main portal vein. No definite surface nodularity. GALLBLADDER: Absent. BILIARY: There is no intrahepatic or extrahepatic biliary ductaldilatation. Common bile duct measures 9 mm in diameter. RIGHT KIDNEY: Normal in size. Measures 9.9 cm. No hydronephrosis. IMPRESSION: 1. Mildly coarsened liver echotexture. This could represent subtle underlying chronic liver disease. No definite liver lesion. Recommend continued follow-up. 2. Post cholecystectomy change. THIS IS AN ELECTRONICALLY VERIFIED FINAL REPORT 01/03/2025 11:10 AM - Electronically signed by Marcelino Robin M.D. AG: WILMER Report ID: [id number] Reading Location: [place] [address] [place] Salvador Michael SUPERVISOR RESEARCH SHOP IMG US PROCEDURES F inal Result from Last 3 Months Insurance [place] [address] [employer] MEDICARE ADVANTAGE Care Teams Slack Cooper Relationship Specialty Start Date End Date Sadi Clemons MD [address] [facility] [address] [address] [address] PCP - General Family Practice 05/02/23 Hira Pino MD [address] [facility] [address] [place] [address] [address] Foreign Broadcast Specialist Cardiovascular Disease 06/08/19
--- OUTSIDE RECORDS SUMMARY | 2025-01-28 15:48 | XMS_ITS | Encounter Summary ---
Author Organization [facility] Care Team Providers Care College Scouting Coordinator Name Role Phone Chetan Lilly MD Primary Care Provider [phone] Hira Pino MD Unavailable [phone] Patience Bartholomew MD Primary Care Provider + Darrian Bartholomew MD Primary Care Provider [phone] Sadi Clemons MD Primary Care Provider [phone] Encounter Details Date Type Department Care Team (Latest Contact Info) Description 04/29/2017 Orders Only [facility] CLINCONV ProviderMartina MD [address] [place] [address] Social History Tobacco Use Types Packs/Day Years Used Date Smoking Tobacco: Never Assessed Sex and Gender Information Value Date Recorded Sex Assigned at Not on file Legal Sex Male 3:46 AM 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 us Historical Provider Final Res ult documented in this encounter Visit Diagnoses Not on filedocumented in this encounter Care Teams College Scouting Coordinator Relationship Specialty Start Date End Date Chetan Lilly MD [address] [place] [address] PCP - General Internal Medicine 08/22/17 06/10/19 Patience Bartholomew MD [address] [facility] [address] [place] [address] [place] [address] PCP - General Vascular Surgery 06/11/19 02/05/21 Darrian Bartholomew MD [address] [address] PCP - General Internal Medicine 02/06/21 05/01/23 Sadi Clemons MD [address] [address] PCP - General Family Practice 05/02/23 Hira Pino MD [address] [facility] [address] [place] [address] Wireless Technician Cardiovascular Disease 06/08/19 documented as of this encounter
--- OUTSIDE RECORDS SUMMARY | 2025-01-28 15:48 | XMS_ITS | Encounter Summary ---
Author Organization [facility] Care Team Providers Care Analysis Analyst Name Role Phone Chetan Lilly MD Primary Care Provider [phone] Hira Pino MD Unavailable [phone] Patience Bartholomew MD Primary Care Provider + Darrian Bartholomew MD Primary Care Provider [phone] Sadi Clemons MD Primary Care Provider [phone] Encounter Details Date Type Department Care Team (Latest Contact Info) Description 09/21/2011 Orders Only [facility] CLINCONV ProviderMartina MD [address] [place] [address] Social History Tobacco Use Types Packs/Day Years Used Date Smoking Tobacco: Never Assessed Sex and Gender Information Value Date Recorded Sex Assigned at Not on file Legal Sex Male 3:[address] TECHNOLOGIST Gender Identity Not on file Sexual Orientation Not on file documented as of this encounter Plan of Treatment Not on file documented as of this encounter Procedures Procedure Name Priority Date/Time Associated Diagnosis Comments CARDIOLOGY REPORT 09/27/2016 12: [address] TECHNOLOGIST documented in this encounter Results * CARDIOLOGY REPORT (09/27/2016 12:[address] TECHNOLOGIST) Anatomical Region Laterality Modality Other Narrative 09/27/2016 12:[address] TECHNOLOGIST Ordered by an unspecified provider. us Historical Provider [facility] SMITH WEAVER Final Result documented in this encounter Visit Diagnoses Not on filedocumented in this encounter Care Teams Analysis Analyst Relationship Specialty Start Date End Date Chetan Lilly MD [address] [place] [address] PCP - General Internal Medicine 08/22/17 06/10/19 Patience Bartholomew MD [address] [facility] [address] [place] [address] [place] [address] PCP - General Vascular Surgery 06/11/19 02/05/21 Darrian Bartholomew MD [address] [address] PCP - General Internal Medicine 02/06/21 05/01/23 Sadi Clemons MD [address] [address] PCP - General Family Practice 05/02/23 Hira Pino MD [address] [facility] [address] [place] [address] [address] City Marshal Cardiovascular Disease 06/08/19 documented as of this encounter
--- OUTSIDE RECORDS SUMMARY | 2025-01-28 15:48 | XMS_ITS | Encounter Summary ---
Author Organization [facility] Care Team Providers Care Parking Worker Name Role Phone Chetan Lilly MD Primary Care Provider [phone] Hira Pino MD Unavailable [phone] Patience Bartholomew MD Primary Care Provider + Darrian Bartholomew MD Primary Care Provider [phone] Sadi Clemons MD Primary Care Provider [phone] Encounter Details Date Type Department Care Team (Latest Contact Info) Description 09/27/2016 Orders Only [facility] CLINCONV ProviderMartina MD [address] [place] [address] Social History Tobacco Use Types Packs/Day Years Used Date Smoking Tobacco: Never Assessed Sex and Gender Information Value Date Recorded Sex Assigned at Not on file Legal Sex Male 3:46 AM SIGNAL WORKER HELPER Gender Identity Not on file Sexual Orientation Not on file documented as of this encounter Plan of Treatment Not on file documented as of this encounter Procedures Procedure Name Priority Date/Time Associated Diagnosis Comments CARDIOLOGY REPORT 09/27/2016 12: 00 AM SIGNAL WORKER HELPER documented in this encounter Results * CARDIOLOGY REPORT (09/27/2016 12:00 AM SIGNAL WORKER HELPER) Anatomical Region Laterality Modality Other Narrative 09/27/2016 12:00 AM SIGNAL WORKER HELPER Ordered by an unspecified provider. us Historical Provider [facility] SMITH WEAVER Final Result documented in this encounter Visit Diagnoses Not on filedocumented in this encounter Care Teams Parking Worker Relationship Specialty Start Date End Date Chetan Lilly MD [address] [place] [address] PCP - General Internal Medicine 08/22/17 06/10/19 Patience Bartholomew MD [address] [facility] [address] [place] [address] [place] [address] PCP - General Vascular Surgery 06/11/19 02/05/21 Darrian Bartholomew MD [address] [address] PCP - General Internal Medicine 02/06/21 05/01/23 Sadi Clemons MD [address] [address] PCP - General Family Practice 05/02/23 Hira Pino MD [address] [facility] [address] [place] [address] [address] Retail Service Specialist Cardiovascular Disease 06/08/19 documented as of this encounter
--- OUTSIDE RECORDS SUMMARY | 2025-01-28 15:48 | XMS_ITS | Clinical Summary ---
Author Organization [facility] [place] [address] Address [address] [place] [address] Care Team Providers Care Optometrist President/Practice Owner Name Role Phone Hira Pino MD Unavailable [phone] Sadi Clemons MD Primary Care Provider [phone] Allergies Active Allergy Reactions Criticality Noted Date [...] esophagi tis 04/15/2023 Duodenal erosion-History of in 2019 04/15/2023 Chronic diarrhea 04/15/2023 Chronic alcoholism 04/15/2023 Erectile dysfunction due to arterial insufficien cy 03/12/2022 Coronary artery disease of [place]ive artery of [place] heart with stable angina pectoris 03/12/2022 Other secondary thrombocytopenia 06/04/2021 Coronary artery disease with history of myocardial infarction without history of CABG 06/11/2019 CHF (congestive heart failure) 06/11/2019 Atherosclerosis of [place] of both lower extremities with [...] Date Resolved Date Lipids abnormal 03/19/2016 06/08/2019 Encounters Date Type Department Care Team Description 01/03/2025 Results Follow-Up [facility] Gastroenterology at [address] [address] Salvador Michael NP RUQ 01/01/2025 10:16 AM CDT - 01/01/2025 11:59 PM CDT Hospital Encounter [facility] 1 [place] [address] Hepatic fibrosis; History of alcoholism (HCC) Discharge Disposition: Discharge to home or self care 12/20/2024 1:30 PM CDT Office Visit [facility] Gastroenterology at [address] [place] [address] Salvador Michael NP Irritable bowel syndrome with both constipation and diarrhea (Primary Dx); Hepatic fibrosis; History of alcoholism (HCC); Vaping nicotine dependence, tobacco product; Duodenal erosion-History of in 2019; Gastroesophageal reflux disease without esophagitis 11/27/2024 2:15 PM CDT Office Visit [facility] Cardiology at [address] [place] [address] Connor Hawkins MD Coronary artery disease of [place] artery of [place] heart with stable angina pectoris (Primary Dx); Essential (primary) hypertension; Hyperlipidemia LDL goal <70; Tobacco use disorder; Atherosclerosis of [place] artery of both lower extremities with intermittent claudication from Last 3 Months Immunizations Immunization Administration Dates Next Due Hep A, Adult 09/27/2012 Influenza, Quadrivalent, Hig h Dose, Preservative Free, Intrr 05/02/2020 Influenza, Trivalent, Adjuva nted, Intramuscular 06/07/2018,06/06/2018 Influenza, Trivalent, High D ose, Split, Preservative Free, Intramuscular 05/18/2019,05/10/2017,06/06/2016,05/23 Influenza, Trivalent, IM (MDV) 05/13/2014 Pneumococcal Polysaccharide PPV23 05/13/2014 Medical History Medical History Date Comments Coronary artery disease Atrial fibrillation (HCC) Hypertension Syncope Hyperlipidemia Social History Tobacco Use Types Packs/Day Years [...] on file Legal Sex Male 3:46 AM 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 Gender Identity Not on file Sexual Orientation Not on file Obstetrics History Last Filed Vital Signs Vital Sign Reading Time Taken Comments Blood Pressure 148/80 12/20/2024 1:28 PM CDT Pulse 73 12/20/2024 1:28 PM CDT Temperature 36.4 C (97.5 F) 09/30/2020 2:23 PM 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 Respiratory Rate 18 08/23/2019 12:38 PM 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 Oxygen Saturation 96% 12/20/2024 1:28 PM CDT Inhaled Oxygen Concentration - - Weight 75.8 kg (167 lb 1.6 oz) 12/20/2024 1:28 P M CDT Height 180.3 cm (5' 11) 12/20/2024 1:28 PM CDT Body Mass Index 23.31 12/20/2024 1:28 PM CDT Plan of Treatment Health Maintenance Due Date Last Done Comments Depression Screening 1943 Fall Risk Assessment 1945 DTaP/Tdap/Td Vaccine (1 - Tdap) 1954 Hepatitis B Screening 1961 Zoster Vaccine (1 of 2) 1993 Well Visit 65+ 2008 Pneumococcal vaccine 65+ (2 of 2 - PCV) 05/13/2015 05/13/2014 Influenza Vaccine (Season Ended) 2025 05/02/2020, 05/18/2019, 06/07/2018, Additional history exists Procedures Procedure Name Priority Date/Time Associated Diagnosis [...] Marcelino Robin M.D. AG: WILMER Report ID: [id number] Reading Location: [id number] Procedure Note Marcelino Robin MD - 01/03/2025 [...] Marcelino Robin M.D. AG: WILMER Report ID: [id number] Reading Location: [id number] us Salvador Jaci Bilderback AIR POLLUTION SPECIALIST IMG US PROCEDURES F inal Result from Last 3 Months Insurance [facility] Care Teams Optometrist President/Practice Owner Relationship Specialty Start Date End Date Sadi Clemons MD [address] [facility] [place] [address] PCP - General Family Practice 05/02/23 Hira Pino MD [address] [facility] [place] [address] One Piece Expansion Maker Hand Cardiovascular Disease 06/08/19
--- OUTSIDE RECORDS SUMMARY | 2025-01-28 15:48 | XMS_ITS | Encounter Summary ---
Author Organization [facility] Facility Care Team Providers Care Organic Extractions Technician Name Role Phone Chetan Lilly MD Primary Care Provider [phone] Hira Pino MD Unavailable [phone] Patience Bartholomew MD Primary Care Provider + Darrian Bartholomew MD Primary Care Provider [phone] Sadi Clemons MD Primary Care Provider [phone] Encounter Details Date Type Department Care Team (Latest Contact Info) Description 04/13/2007 Orders Only [facility] CLINCONV ProviderMartina MD [address] [place] [address] Social History Tobacco Use Types Packs/Day Years Used Date Smoking Tobacco: Never Assessed Sex and Gender Information Value Date Recorded Sex Assigned at Not on file Legal Sex Male 3:46 AM SOURCING COORDINATOR Gender Identity Not on file Sexual Orientation Not on file documented as of this encounter Plan of Treatment Not on file documented as of this encounter Procedures Procedure Name Priority Date/Time Associated Diagnosis Comments CARDIOLOGY REPORT 09/27/2016 12: 00 AM SOURCING COORDINATOR documented in this encounter Results * CARDIOLOGY REPORT (09/27/2016 12:00 AM SOURCING COORDINATOR) Anatomical Region Laterality Modality Other Narrative 09/27/2016 12:00 AM SOURCING COORDINATOR Ordered by an unspecified provider. us Historical Provider [facility] SMITH WEAVER Final Result documented in this encounter Visit Diagnoses Not on filedocumented in this encounter Care Teams Organic Extractions Technician Relationship Specialty Start Date End Date Chetan Lilly MD [address] [place] [address] PCP - General Internal Medicine 08/22/17 06/10/19 Patience Bartholomew MD [address] [facility] [address] [place] [address] [place] [address] PCP - General Vascular Surgery 06/11/19 02/05/21 Darrian Bartholomew MD [address] [address] PCP - General Internal Medicine 02/06/21 05/01/23 Sadi Clemons MD [address] [address] PCP - General Family Practice 05/02/23 Hira Pino MD [address] [facility] [address] [place] [address] [address] Forming Mill Operator Cardiovascular Disease 06/08/19 documented as of this encounter
--- OUTSIDE RECORDS SUMMARY | 2025-01-28 15:48 | XMS_ITS | Encounter Summary ---
Author Organization [facility] Facility Care Team Providers Care Roll Slicing Machine Tender Name Role Phone Chetan Lilly MD Primary Care Provider [phone] Hira Pino MD Unavailable [phone] Patience Bartholomew MD Primary Care Provider + Darrian Bartholomew MD Primary Care Provider [phone] Sadi Clemons MD Primary Care Provider [phone] Encounter Details Date Type Department Care Team (Latest Contact Info) Description 06/25/2015 Orders Only [facility] CLINCONV ProviderMartina MD [address] [place] [address] Social History Tobacco Use Types Packs/Day Years Used Date Smoking Tobacco: Never Assessed Sex and Gender Information Value Date Recorded Sex Assigned at Not on file Legal Sex Male 3:46 AM TRANSCRIPTION COORDINATOR Gender Identity Not on file Sexual Orientation Not on file documented as of this encounter Plan of Treatment Not on file documented as of this encounter Procedures Procedure Name Priority Date/Time Associated Diagnosis Comments SCAN - LABS 09/27/2016 12:00 AM TRANSCRIPTION COORDINATOR documented in this encounter Results * SCAN - LABS (09/27/2016 12:00 AM TRANSCRIPTION COORDINATOR) Narrative 09/27/2016 12:00 AM TRANSCRIPTION COORDINATOR Ordered by an unspecified provider. us Historical Provider Final Res ult documented in this encounter Visit Diagnoses Not on filedocumented in this encounter Care Teams Roll Slicing Machine Tender Relationship Specialty Start Date End Date Chetan Lilly MD [address] [place] [address] PCP - General Internal Medicine 08/22/17 06/10/19 Patience Bartholomew MD [address] [facility] [address] [place] [address] [place] [address] PCP - General Vascular Surgery 06/11/19 02/05/21 Darrian Bartholomew MD [address] [address] PCP - General Internal Medicine 02/06/21 05/01/23 Sadi Clemons MD [address] [address] PCP - General Family Practice 05/02/23 Hira Pino MD [address] [facility] [address] [place] [address] [address] Jewelry Model Maker Cardiovascular Disease 06/08/19 documented as of this encounter
--- OUTSIDE RECORDS SUMMARY | 2025-01-28 15:48 | XMS_ITS | Encounter Summary ---
Author Organization [facility] Facility Care Team Providers Care Senior Windows Administrator Name Role Phone Chetan Lilly MD Primary Care Provider [phone] Hira Pino MD Unavailable [phone] Patience Bartholomew MD Primary Care Provider + Darrian Bartholomew MD Primary Care Provider Sadi Clemons MD Primary Care Provider [phone] Encounter Details Date Type Department Care Team (Latest Contact Info) Description 06/03/2008 Orders Only [facility] CLINCONV ProviderMartina MD [address] [place] [address] Social History Tobacco Use Types Packs/Day Years Used Date Smoking Tobacco: Never Assessed Sex and Gender Information Value Date Recorded Sex Assigned at Not on file Legal Sex Male 3:46 AM CLAM BED LABORER Gender Identity Not on file Sexual Orientation Not on file documented as of this encounter Plan of Treatment Not on file documented as of this encounter Procedures Procedure Name Priority Date/Time Associated Diagnosis Comments CARDIOLOGY REPORT 09/27/2016 12: 00 AM CLAM BED LABORER documented in this encounter Results * CARDIOLOGY REPORT (09/27/2016 12:00 AM CLAM BED LABORER) Anatomical Region Laterality Modality Other Narrative 09/27/2016 12:00 AM CLAM BED LABORER Ordered by an unspecified provider. us Historical Provider [facility] SMITH WEAVER Final Result documented in this encounter Visit Diagnoses Not on filedocumented in this encounter Care Teams Senior Windows Administrator Relationship Specialty Start Date End Date Chetan Lilly MD [address] [place] [address] PCP - General Internal Medicine 08/22/17 06/10/19 Patience Bartholomew MD [address] [facility] [address] [place] [address] [place] [address] PCP - General Vascular Surgery 06/11/19 02/05/21 Darrian Bartholomew MD [address] [address] PCP - General Internal Medicine 02/06/21 05/01/23 Sadi Clemons MD [address] [address] PCP - General Family Practice 05/02/23 Hira Pino MD [address] [facility] [address] [place] [address] [address] Armature Connector Cardiovascular Disease 06/08/19 documented as of this encounter
--- OUTSIDE RECORDS SUMMARY | 2025-01-28 15:48 | XMS_ITS | Encounter Summary ---
Author Organization [facility] Facility Care Team Providers Care Compensation And Benefits Administrator Name Role Phone Chetan Lilly MD Primary Care Provider [phone] Hira Pino MD Unavailable [phone] Patience Bartholomew MD Primary Care Provider + Darrian Bartholomew MD Primary Care Provider [phone] Sadi Clemons MD Primary Care Provider [phone] Encounter Details Date Type Department Care Team (Latest Contact Info) Description 05/22/2015 Orders Only [facility] CLINCONV ProviderMartina MD [address] [place] [address] Social History Tobacco Use Types Packs/Day Years Used Date Smoking Tobacco: Never Assessed Sex and Gender Information Value Date Recorded Sex Assigned at Not on file Legal Sex Male 3:46 AM SUSTAINABILITY CONSULTANT Gender Identity Not on file Sexual Orientation Not on file documented as of this encounter Plan of Treatment Not on file documented as of this encounter Procedures Procedure Name Priority Date/Time Associated Diagnosis Comments CARDIOLOGY REPORT 09/27/2016 12: 00 AM SUSTAINABILITY CONSULTANT documented in this encounter Results * CARDIOLOGY REPORT (09/27/2016 12:00 AM SUSTAINABILITY CONSULTANT) Anatomical Region Laterality Modality Other Narrative 09/27/2016 12:00 AM SUSTAINABILITY CONSULTANT Ordered by an unspecified provider. us Historical Provider [facility] SMITH WEAVER Final Result documented in this encounter Visit Diagnoses Not on filedocumented in this encounter Care Teams Compensation And Benefits Administrator Relationship Specialty Start Date End Date Chetan Lilly MD [address] [place] [address] PCP - General Internal Medicine 08/22/17 06/10/19 Patience Bartholomew MD [address] [facility] [address] [place] [address] [place] [address] PCP - General Vascular Surgery 06/11/19 02/05/21 Darrian Bartholomew MD [address] [address] PCP - General Internal Medicine 02/06/21 05/01/23 Sadi Clemons MD [address] [address] PCP - General Family Practice 05/02/23 Hira Pino MD [address] [facility] [address] [place] [address] [address] Jackhammer Operator Cardiovascular Disease 06/08/19 documented as of this encounter
--- OUTSIDE RECORDS SUMMARY | 2025-01-28 15:48 | XMS_ITS | Encounter Summary ---
Author Organization [facility] Facility Care Team Providers Care Dynamo Tender Name Role Phone Chetan Lilly MD Primary Care Provider [phone] Hira Pino MD Unavailable [phone] Patience Bartholomew MD Primary Care Provider + Darrian Bartholomew MD Primary Care Provider [phone] Sadi Clemons MD Primary Care Provider [phone] Encounter Details Date Type Department Care Team (Latest Contact Info) Description 05/31/2008 Orders Only [facility] CLINCONV ProviderMartina MD [address] [place] [address] Social History Tobacco Use Types Packs/Day Years Used Date Smoking Tobacco: Never Assessed Sex and Gender Information Value Date Recorded Sex Assigned at Not on file Legal Sex Male 3:46 AM TERMINAL BLOCK ASSEMBLER Gender Identity Not on file Sexual Orientation Not on file documented as of this encounter Plan of Treatment Not on file documented as of this encounter Procedures Procedure Name Priority Date/Time Associated Diagnosis Comments CARDIOLOGY REPORT 09/27/2016 12: 00 AM TERMINAL BLOCK ASSEMBLER documented in this encounter Results * CARDIOLOGY REPORT (09/27/2016 12:00 AM TERMINAL BLOCK ASSEMBLER) Anatomical Region Laterality Modality Other Narrative 09/27/2016 12:00 AM TERMINAL BLOCK ASSEMBLER Ordered by an unspecified provider. us Historical Provider [facility] SMITH WEAVER Final Result documented in this encounter Visit Diagnoses Not on filedocumented in this encounter Care Teams Dynamo Tender Relationship Specialty Start Date End Date Chetan Lilly MD [address] [place] [address] PCP - General Internal Medicine 08/22/17 06/10/19 Patience Bartholomew MD [address] [facility] [address] [place] [address] [place] [address] PCP - General Vascular Surgery 06/11/19 02/05/21 Darrian Bartholomew MD [address] [address] PCP - General Internal Medicine 02/06/21 05/01/23 Sadi Clemons MD [address] [address] PCP - General Family Practice 05/02/23 Hira Pino MD [address] [facility] [address] [place] [address] [address] Service Delivery Manager Cardiovascular Disease 06/08/19 documented as of this encounter
[2025-01-28 19:53] LABS: Alanine Aminotransferase 22 U/L (6-50); Albumin Level 4.4 g/dL (3.5-5.1); Alkaline Phosphatase 101 U/L (38-126); Anion Gap 11 mmol/L (4-12); Aspartate Amino Transferase 53 U/L (17-59); Blood Urea Nitrogen 16 mg/dL (9-20); Calcium 9.8 mg/dL (8.4-10.2); Carbon Dioxide 27 mmol/L (22-30); Chloride 104 mmol/L (98-107); Cholesterol 86 mg/dL (0-200); Estimated Glomerular Filt Rate 60; Glucose 102 mg/dL (65-110); HDL Direct 27 mg/dL; Potassium 4.3 mmol/L (3.4-5.0); Sodium 142 mmol/L (137-145); Total Protein 7.3 g/dL (6.3-8.2); Triglycerides 110 mg/dL (<150)
[2025-01-28 20:10] LABS: LDL Cholesterol Direct < 30 mg/dL
[2025-01-28 20:20] LABS: Basophils Percent Auto 0.5 % (0.2-1.2); Eosinophils Absolute Auto 0.1 K/mm3 (0-0.3); Eosinophils Percent Auto 1.1 % (0-4.4); Hematocrit 44.1 % (42.0-52.0); Hemoglobin 14.6 g/dL (14.0-18.0); Immature Granulocyte Absolute 0.03 K/mm3 (0.00-0.031); Immature Granulocyte Percent A 0.4 % (0-0.5); Mean Corpuscular HGB Conc 33.1 g/dl (32-36); Mean Corpuscular Hemoglobin 30.2 pg (26-34); Mean Corpuscular Volume 91.3 fl (80-100); Mean Platelet Volume 12.9 fl (7.4-10.4); Monocytes Absolute Auto 0.7 K/mm3 (0.1-0.6); Monocytes Percent Auto 9.2 % (2.6-8.5); Neutrophils Absolute Auto 5.5 K/mm3 (1.3-6.7); Neutrophils Percent Auto 72.8 % (45.5-73.1); Platelet Count Result 158 k/mm3 (150-375); Red Blood Count 4.83 M/mm3 (4.6-6.20); Red Cell Distribution Width 14.5 % (11.5-14.5); White Blood Count 7.5 K/mm3 (4.5-10.0)
[2025-01-28 20:42] LABS: Hemoglobin A1C 5.1 % (<5.7)
[2025-01-28 20:43] LABS: Vitamin D 25 Hydroxy 88.9 ng/mL
== END 2025-01-28 14:41 | disposition home or self-care (01) ==
LOC: ANHGOSHLAB 14:40
PROVIDERS: PCP Family Medicine; Visit Provider Family Medicine
DX: I11.0 Hypertensive heart disease with heart failure (principal); I50.9 Heart failure, unspecified; E55.9 Vitamin D deficiency, unspecified; R74.8 Abnormal levels of other serum enzymes; Z79.899 Other long term (current) drug therapy
CPT/HCPCS: 36415; 80053; 80061; 82306; 83036; 85025

== ENCOUNTER 2025-02-08 10:22 | Outpatient (CLI) | payer MEDICARE, SELFPAY ==
--- NOTE | ~2025-02-08 | CT_ITS ---
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 Dose reduction technique was used on this scan by utilizing automated exposu re control and iterative reconstruction technique. The dose-length product (DLP) was 217.75 mGy-cm. Findings: There is no evidence of any significant mediastinal, hilar or axillary lymphadenopathy. There is no f illing defect in the pulmonary arterial tree to suggest pulmonary embolus. There is no evidence of ao rtic dissection or aneurysm. There is no evidence of pleural or pericardial effusion. There is right apical scarring. There is pro bable focal scarring with 5 mm nodule in the right middle lobe. 4 mm left lower lobe nodule present ( axial image 90). Images through the upper abdomen reveal low-density right adrenal nodule, compatible with adenoma. Th ere is mild chronic compression deformity of T1. There is moderate chronic compression deformity of L 1. Impression: Subcentimeter pulmonary nodules, as above. According to Fleischner Society criteria, for a low-risk p atient, no further follow-up required. For a high-risk patient, 12 month follow-up CT recommended. There is mild pulmonary scarring, as above. Chronic compression deformities of T1 and L1. Reviewed, dictated and finalized at location M. Impression: Subcentimeter pulmonary nodules, as above. According to Fleischner Society crit elizabeth, for a low-risk patient, no further follow-up required. For a high-risk pa tient, 12 month follow-up CT recommended. There is mild pulmonary scarring, as above. Chronic compression deformities of T1 and L1.
== END 2025-02-08 10:23 | disposition home or self-care (01) ==
PROVIDERS: PCP Family Medicine; Visit Provider Otolaryngology
DX: R91.8 Other nonspecific abnormal finding of lung field (principal); J98.4 Other disorders of lung; S22.010A Wedge compression fracture of first thoracic vertebra, initial encounter for closed fracture; S32.010A Wedge compression fracture of first lumbar vertebra, initial encounter for closed fracture; X58.XXXA Exposure to other specified factors, initial encounter; J38.00 Paralysis of vocal cords and larynx, unspecified; J98.59 Other diseases of mediastinum, not elsewhere classified; C34.11 Malignant neoplasm of upper lobe, right bronchus or lung
CPT/HCPCS: 71260; Q9967

== ENCOUNTER 2025-07-29 12:18 | Outpatient (CLI) | payer MEDICARE, SELFPAY ==
[2025-07-29 12:34] LABS: Hematocrit 40.5 % (42.0-52.0); Hemoglobin 13.7 g/dL (14.0-18.0); Immature Granulocyte Percent A 0.3 % (0-0.5); Lymphocytes Absolute Auto 1.62 K/mm3 (0.9-3.2); Mean Corpuscular HGB Conc 33.8 g/dl (32-36); Mean Corpuscular Hemoglobin 31.1 pg (26-34); Mean Corpuscular Volume 91.8 fl (80-100); Nucleated Red Blood Cells Absolute Auto 0.000 K/mm3 (0.0-0.012); Nucleated Red Blood Cells Perc 0.0 % (0.0-0.2); Platelet Count Result 138 k/mm3 (150-375); Red Blood Count 4.41 M/mm3 (4.6-6.20); White Blood Count 12.5 K/mm3 (4.5-10.0)
[2025-07-29 13:00] LABS: Iron 59 ug/dL (49-181)
[2025-07-29 13:01] LABS: Alanine Aminotransferase 17 U/L (6-50); Albumin Level 4.2 g/dL (3.5-5.1); Alkaline Phosphatase 68 U/L (38-126); Anion Gap 6 mmol/L (4-12); Aspartate Amino Transferase 26 U/L (17-59); Bilirubin,Total 1.0 mg/dL (0.2-1.3); Blood Urea Nitrogen 18 mg/dL (9-20); Calcium 9.2 mg/dL (8.4-10.2); Carbon Dioxide 27 mmol/L (22-30); Chloride 107 mmol/L (98-107); Estimated Glomerular Filt Rate 58; Glucose 102 mg/dL (65-110); Potassium 4.5 mmol/L (3.4-5.0); Sodium 140 mmol/L (137-145); Total Protein 7.2 g/dL (6.3-8.2)
[2025-07-29 13:10] LABS: Percent Iron Saturation 20 % (20-50)
[2025-07-29 14:12] LABS: Vitamin B12 968.0 pg/mL (239-931)
== END 2025-07-29 12:19 | disposition home or self-care (01) ==
PROVIDERS: PCP Family Medicine; Visit Provider Family Medicine
DX: F10.10 Alcohol abuse, uncomplicated (principal); Z72.0 Tobacco use; I11.0 Hypertensive heart disease with heart failure; I50.9 Heart failure, unspecified; I73.9 Peripheral vascular disease, unspecified; E78.5 Hyperlipidemia, unspecified; K21.9 Gastro-esophageal reflux disease without esophagitis; R79.89 Other specified abnormal findings of blood chemistry; D64.9 Anemia, unspecified; G47.33 Obstructive sleep apnea (adult) (pediatric); G47.00 Insomnia, unspecified; G47.31 Primary central sleep apnea
CPT/HCPCS: 36415; 80053; 82172; 82306; 82607; 82746; 83540; 83550; 85025